=== PATIENT | male | born 1975 | race Caucasian/White ===

== ENCOUNTER 2024-09-30 10:54 | Outpatient (OUT) | payer OTHER, SELFPAY ==
--- NOTE | 2024-09-30 11:10 | XR_ITS ---
[facility] [place] [address] Patient Name: ZEESHAN GIRALDO MRN: [id number] date: 1975 Sex: M Assigned Patient Location: LAB Current Patient Location: LAB Accession/Order Number: [id number] Exam Date: 09/30/2024 12:34 Report Date: 09/30/2024 12:36 At the request of: RHIANNA LECHUGA DO Procedure: XR cervical spine w flex/ext 7 viewscervical spinewith flexion and extension HISTORY: Neck pain and right shoulder pain for 3 weeks. COMPARISON: None POSTOPERATIVE CHANGES: None BONY ALIGNMENT: Straightening of cervical lordosis secondary patient positioning or spasm. HYPERMOBILITY::No hypermobility LISTHESIS:None FRACTURE: None DISC DEGENERATION: C5-6 and C6-7 mild disc space narrowing. Marginal spurring. FACETS: Multilevel facet degeneration FORAMEN: C5-6 and C6-7 bilateral bony neural foraminal narrowing. DENS: Intact CRANIOCERVICAL JUNCTION: Unremarkable SOFT TISSUES: Unremarkable XR/XR cervical spine w flex/ext IMPRESSION: No hypermobility. C5-6 and C6-7 degenerative change. Impression dictated by: Raymond Chamberlain M.D.09/30/2024 12:36 PM Dictation Location: [email or web address] Electronically authenticated by: [id number] Date: 09/30/2024 12:36
[2024-09-30 11:18] LABS: Basophils Absolute Auto 0.1 10^3/uL (0.0-0.1); Basophils Percent Auto 0.9 % (0.2-2.0); Eosinophils Absolute Auto 0.4 10^3/uL (0.0-0.7); Eosinophils Percent Auto 4.3 % (0.9-7.0); Hematocrit 45.4 % (42.0-54.0); Hemoglobin 16.4 g/dL (14.0-18.0); Immature Granulocytes Abs Auto 0.03 10^3/uL (0.00-0.03); Immature Granulocytes Pct Auto 0.3 % (0.0-0.5); Lymphocytes Percent Auto 32.5 % (20.5-60.0); Mean Corpuscular HGB Conc 36.1 g/dL (29.9-35.2); Mean Corpuscular Hemoglobin 32.8 pg (25.9-34.0); Mean Corpuscular Volume 90.8 fL (80.0-94.0); Mean Platelet Volume 10.2 fL (9.5-13.5); Monocytes Absolute Auto 0.7 10^3/uL (0.3-0.8); Monocytes Percent Auto 7.4 % (1.7-12.0); Neutrophils Percent Auto 54.6 % (43.0-75.0); Platelet Count 252 10^3/uL (150-450); Red Cell Distribution Width 12.5 % (11.0-15.0); White Blood Count 9.1 10^3/uL (4.0-11.0)
[2024-09-30 11:50] LABS: Alanine Aminotransferase 29 U/L (16-63); Albumin Globulin Ratio 1.3; Albumin Level 4.4 g/dL (3.4-5.0); Alkaline Phosphatase 81 U/L (46-116); Anion Gap 13.1; Aspartate Amino Transferase 17 U/L (15-37); Bilirubin Total 0.9 mg/dL (0.2-1.0); Calcium 9.3 mg/dL (8.5-10.1); Carbon Dioxide 29.2 mmol/L (21.0-32.0); Chloride 104 mmol/L (98-107); Chol HDL Ratio 2.7; Cholesterol 177 mg/dL (<=200); Estimated GFR (African America >60 (>=60 mL/min/1.73m^2); Estimated GFR (Non-African Ame >60 (>=60 mL/min/1.73m^2); Globulin 3.5 g/dL; Glucose 90 mg/dL (74-106); HDL Cholesterol 65 mg/dL (40-60); Potassium 4.3 mmol/L (3.5-5.1); Sodium 142 mmol/L (136-145); Total Protein 7.9 g/dL (6.4-8.2); Triglycerides 54 mg/dL (<=150); VLDL CHOLESTEROL 10.8 mg/dL
== END 2024-09-30 10:55 | disposition home or self-care (01) ==
LOC: LAB 10:59
PROVIDERS: PCP Internal Medicine; Visit Provider Internal Medicine
DX: Z00.00 Encounter for general adult medical examination without abnormal findings (principal); M54.2 Cervicalgia; M25.511 Pain in right shoulder
CPT/HCPCS: 36415; 72052; 80053; 80061; 85025

== ENCOUNTER 2024-10-09 06:41 | Emergency (ER) | payer OTHER, SELFPAY ==
--- OUTSIDE RECORDS SUMMARY | 2024-10-09 06:46 | XMS_ITS | CCD ---
Author Organization [facility] Care Team Providers Care Carrot Harvester Name Role Phone MIKE, DR MOCTEZUMA Admitting Unavailable BALL, DR MOCTEZUMA Attending Unavailable BALL, DR MOCTEZUMA Primary Care Unavailable BALL, DR MOCTEZUMA Consulting Unavailable WEST, DR JEREMIAS Knight Consulting Unavailable REQUEST, DR MORGAN LISTED Admitting Unavaila ble REQUEST, DR MORGAN LISTED Attending Unavaila ble REQUEST, DR MORGAN LISTED Consulting Unavaila ble BALL, DR MOCTEZUMA Primary Care Unavailable Mike, Henrique Unavailable MIKE, HENRIQUE Primary Care Physician BUTCH, Kory Nixon Attending Unavailable RAE, Kory Nixon Attending Unavailable RAE, Kory Nixon Referring Unavailable RAE, Kory Nixon Admitting Unavailable RAE, Kory Nixon Admitting Unavailable RAE, Kory Nixon Attending Unavailable RAE, Kory Nixon Admitting Unavailable RAE, Kory Nixon Attending Unavailable RAE, Kory Nixon Attending Unavailable RAE, Kory R Attending Unavailable Allergies Allergy Classification Reported Allergen(s) Allergy Type Date of Onset Reaction(s) Facility (1 source) No Known Medication Allergies; Translations: [No Known Medication Allergies] Propensity to adverse reactions (disorder) [facility] Repository Medications Current Medications Medication Drug Class(es) Dates Sig (Normalized) Sig (Original) cephalexin 500 mg oral capsule (1 source) Cephalosporin Antibacterial Start: 03-23-2023 End: 03-28-2023 take 1 capsule by mouth twice daily at mealtime Keflex 500 mg Cap 500 mg = 1 cap(s), Oral, BID, start with first meal after procedure, X 5 day(s), # 10 cap(s), Refills(s) 0, Pharmacy: [facility]/pharmacy #[id number], 190, cm, 03/23/23 12:39:00 EDT, Height/Length Dosing, 88, kg, 03/23/23 12:39:00 EDT, Weight Dosing Start Date: 03/23/23 Stop Date: 03/28/23 Status: Ordered diazePAM 10 mg oral tablet (2 sources) Benzodiazepine Start: 03-23-2023 Valium 10 mg Tab 10 mg = 1 tab(s), Oral, Once, take one hour prior to procedure, # 1 tab(s), Refills(s) 0, Pharmacy: [facility]/pharmacy #[id number], 190, cm, 03/23/23 12:39:00 EDT, Height/Length Dosing, 88, kg, 03/23/23 12:39:00 EDT, Weight Dosing Start Date: 03/23/23 Status: Ordered LORazepam 0.5 mg oral tablet (8 sources) Benzodiazepine Start: 07-15-2023 take 1 tablet by mouth once daily as needed LORazepam 0.5 MG 1 tablet Orally Once a day as needed for 7 days Jul, Active Start: 05-20-2023 take 1 tablet by guillermo th once daily as needed LORazepam 0.5 MG 1 tablet Orally Once a day as needed for 7 days May, Active Start: 07-25-2022 take 1 tablet by guillermo th once daily as needed LORazepam 0.5 MG 1 tablet Orally Once a day as needed for 7 days Jul, Active predniSONE 20 mg oral tablet (1 source) Start: 09-30-2024 Prednisone 20 mg tablet Active 20 MG PO As Directed September 30, 2024 12:00am 1 tab tid w/ food x 3 days, then bid w/ food x 3 days, then qd w/ food x 3 days tiZANidine 4 mg oral tablet (1 source) Central alpha-2 Adrenergic Agonist Start: 09-30-2024 take 1 tablet by mouth once daily at bedtime as needed Tizanidine 4 mg tablet Active 4 MG PO Daily at bedtime as needed for muscle spasticity 14 September 30, 2024 12:00am valACYclovir (14 sources) Herpesvirus Nucleoside Analog DNA Polymerase Inhibitor, Herpes Simplex Virus Nucleoside Analog DNA Polymerase Inhibitor, Herpes Zoster Virus Nucleoside Analog DNA Polymerase Inhibitor Start: 11-16-2023 Valacyclovir 1 gram tablet Active 0 .ROUTE .COMPLEX 180 November 16, 2023 1:21pm TAKE 1 TABLET TWICE A DAY Start: 11-16-2023 Valacyclovir A ctive 0 .ROUTE .COMPLEX 180 November 16, 2023 1:21pm TAKE 1 TABLET TWICE A DAY Start: 11-16-2023 End: 11-16-2023 Valacyclovir 1 gram tablet Discontinued 1000 MG PO Twice daily November 16, 2023 12:00am November 16, 2023 1:21pm Start: 11-16-2023 End: 11-16-2023 take 1000 mg by mouth twice daily Valacyclovir Discontinued 1000 MG PO Twice daily November 16, 2023 12:00am November 16, 2023 1:21pm take 1 tablet by guillermo th twice daily valACYclovir HCl 1 GM 1 tablet Orally twice daily for 90 days Active take 1 tablet by guillermo th twice daily valACYclovir HCl 1 GM 1 tablet Orally twice daily for 90 days Active take 1 tablet by guillermo th every twenty-four hours valACYclovir HCl 1 GM 1 tablet Orally Once a day Active Completed/Discontinued Medications Medication Drug Class(es) Dates Sig (Normalized) Sig (Original) amoxicillin 875 mg oral tablet (8 sources) Penicillin-class Antibacterial Start: 03-29-2018 take 1 tablet by mouth every twelve hours Amoxicillin 875 MG 1 tablet Orally every 12 hrs for 7 days Mar, Not-Taking/PRN amoxicillin 875 mg / clavulanate 125 mg oral tablet (2 sources) Penicillin-class Antibacterial Start: 03-04-2024 End: 09-30-2024 take 1 tablet by mouth every twelve hours Amoxicillin-Pot Clavulanate 875-125 mg tablet Discontinued 1 TAB PO Every 12 hours 14 March 04, 2024 12:00am September 30, 2024 10:10am benzonatate 200 mg oral capsule (2 sources) Non-narcotic Antitussive Start: 03-04-2024 End: 09-30-2024 take 1 capsule by mouth three times daily Benzonatate 200 mg capsule Discontinued 200 MG PO Three times daily 30 March 04, 2024 12:00am September 30, 2024 10:15am doxycycline hyclate 100 mg oral capsule (3 sources) Tetracycline-class Drug Start: 02-01-2024 End: 03-04-2024 take 1 capsule by mouth twice daily Doxycycline Hyclate 100 mg capsule Discontinued 100 MG PO Twice daily February 01, 2024 12:00am March 04, 2024 4:08pm fluticasone propionate 0.05 mg/actuat metered dose nasal spray (8 sources) Corticosteroid Start: 03-29-2018 take 1 spray(s) nasal route once daily as needed Fluticasone Propionate 50 MCG/ACT 1 spray in each nostril Nasally Once a day for 21 days Mar, Not-Taking/PRN Start: 03-29-2018 take 1 spray(s) nasa l route once daily Fluticasone Propionate 50 MCG/ACT 1 spray in each nostril Nasally Once a day for 21 days Mar, Not-Taking methylPREDNISolone 4 mg oral tablet (8 sources) Corticosteroid Start: 03-29-2018 Medrol (Killian) 4 MG half of daily dose in the morning with food and the rest at night with food Orally Mar, Not-Taking/PRN ProAir HFA 108 (90 Base) MCG/ACT (8 sources) Start: 03-29-2018 take 2 puff(s) by inhalation every four to six hours as needed ProAir HFA 108 (90 Base) MCG/ACT 2 puffs as needed Inhalation every 4-6 hrs Mar, Not-Taking/PRN Start: 03-29-2018 take 2 puff(s) by in halation every four to six hours as needed ProAir HFA 108 (90 Base) MCG/ACT 2 puffs as needed Inhalation every 4-6 hrs Mar, Not-Taking Problems Problem Classification Problem Date Documented Date Episodic/Chronic Acute bronchitis (3 sources) Acute infective bronchitis; Translations: [Acute bronchitis due to other specified organisms] 03-04-2024 Episodic Anxiety disorders (19 sources) Generalized anxiety disorder; Translations: [Generalized anxiety disorder] Onset: 06-09-2017 Chronic Contraceptive and procreative management (1 source) Contraception status; Translations: [Encounter for other general counseling and advice on contraception] Onset: 03-19-2023 Episodic Nonspecific chest pain (4 sources) Other chest pain; Translations: [OTHER CHEST PAIN] Onset: 12-06-2020 Episodic Other circulatory disease (3 sources) Elevated blood-pressure reading, without diagnosis of hypertension Episodic Other lower respiratory disease (3 sources) Productive cough ; Translations: [Productive cough] 03-04-2024 Episodic Other non-traumatic joint disorders (2 sources) Pain in right shoulder; Translations: [Right shoulder pain] 09-30-2024 Episodic Other screening for suspected conditions (not mental disorders or infectious disease) (2 sources) Encounter for screening for malignant neoplasm of colon; Translations: [Special screening for malignant neoplasms of colon] Episodic Spondylosis; intervertebral disc disorders; other back problems (9 sources) Lumbar spondylosis; Translations: [Spondylosis without myelopathy or radiculopathy, lumbar region] Chronic Spondylosis; intervertebral disc disorders; other back problems (2 sources) Neck pain; Translations: [Cervicalgia] 09-30-2024 Episodic Unclassified (2 sources) Patient encounter status 03-19-2023 Viral infection (11 sources) Herpes simplex type 1 infection; Translations: [Herpesviral infection, unspecified] Episodic Results Test Name Value Interpretation Reference Range Facility Semen Analysis PostVason Deana/Transport Prob No Problems Normal [facility] Comment on above: Performed By: #### 2 [id number], [id number] ####[place] [address] Collect. Meth Masturbation Normal [facility] Comment on above: Performed By: #### 2 [id number], [id number] ####[place] [address] Days Abstained Invalid Interpretation Code 2-5 [facility] Comment on above: Performed By: #### 2 [id number], [id number] ####[place] [id number] Post Vas Screen No Sperm Seen Normal <=0 [facility] Comment on above: Result Comment: A Co ncentration Technique is used to confirm any semen which is azospermic (no sperm seen). Performed By: #### 2 [id number], [id number] ####[address] [address] Spec. Container Steril Container Normal [facility] Comment on above: Performed By: #### 2 [id number], [id number] ####[address] [address] Spec. Temp 22 DegC Normal 20-37 [facility] Comment on above: Performed By: #### 2 [id number], [id number] ####[place] [id number] Sperm Morphon 02-27-2024 Sperm Morph No sperm identified (A concentration technique is used to evaluate this specimen). ICD10 Z30.9 Invalid Interpretation Code [facility] Comment on above: Other Comment: Order Added by Discern Expert. Sperm Morph No sperm identified (A concentration technique is used to evaluate this specimen). Invalid Interpretation Code [facility] Comment on above: Order Comment: Order Added by Discern Expert. Performed By: #### 2 [id number], [id number] ####[place] [id number] Semen Analysis PostVason Deana/Transport Prob No Problems Normal [facility] Comment on above: Performed By: #### 2 [id number], [id number] ####[place] [id number] Collect. Meth Masturbation Normal [facility] Comment on above: Performed By: #### 2 [id number], [id number] ####[place] [id number] Days Abstained 1 day(s) Low 2-5 [facility] Comment on above: Performed By: #### 2 [id number], [id number] ####[place] [id number] Post Vas Screen Present Normal <=0 [facility] Comment on above: Result Comment: Rare Non-Motile Sperm Seen A Concentration Technique is used to confirm any semen which is azospermic (no sperm seen). Performed By: #### 2 [id number], [id number] ####[address] [address] Spec. Container Steril Container Normal [facility] Comment on above: Performed By: #### 2 [id number], [id number] ####[address] [address] Spec. Temp 23 DegC Normal 20-37 [facility] Comment on above: Performed By: #### 2 [id number], [id number] ####[address] [place] [address] Sperm Morphon 06-03-2023 Sperm Morph Rare unremarkable sperms present (concentration technique performed). Invalid Interpretation Code [facility] Comment on above: Other Comment: Order Added by Discern Expert. Order Comment: Order Added by Discern Expert. Performed By: #### 2 [id number], [id number] ####[facility] [id number] [place] [address] Ambulatory Visit Summaryon 1 07-20-2022 Ambulatory Visit Summary LAMONTE MOORE :1975 Visit Date:05/20/2023 Ambulatory Visit Instructions Your Diagnosis Status post vasectomy Your Care Team Attending Physician - Kory RAE MD Primary Care Physician - HENRIQUE MCKEON DO Procedures Performed Vasectomy (04/28/2023), Procedure on back, Procedure on femur. Discharge Vitals Heart Rate (Peripheral) 64 Blood Pressure 123/90 Height 190 cm Height 75 in Weight 88 kg Weight 193.6 lb BMI 24.38 What to do next You Need to Schedule the Following Appointments Follow Up with BUTCH OROZCO, Kory Nixon, URL When: Where: [facility] [address] [place] [address]- You Need to Complete the Following Semen Analysis Post Vasectomy, Semen, Routine collect, 05/20/23, Order for future visit, Nurse collect, Vasectomy evaluation, Print Label By Order Location Semen Analysis Post Vasectomy, Semen, Routine collect, 05/20/23, Order for future visit, Nurse collect, Vasectomy evaluation, Print Label By Order Location Allergies No Known Medication Allergies Problems Ongoing - Any problem that you are currently receiving treatment for. Status post vasectomy Patient Survey You may receive a survey via text or e-mail asking about your office visit. Please share your experience with us by completing your survey. We appreciate your feedback and thank you for choosing us for your care. Education Materials Contraception Choices Contraception, also called control, refers to methods or devices that prevent . Hormonal methods Contraceptive implant A contraceptive implant is a thin, plastic tube that contains a hormone that prevents . It is different from an intrauterine device (IUD). It is inserted into the upper part of the arm by a health care provider. Implants can be effective for up to 3 years. Progestin-only injections Progestin-only injections are injections of progestin, a synthetic form of the hormone progesterone. They are given every 3 months by a health care provider. control pills control pills are pills that contain hormones that prevent . They must be taken once a day, preferably at the same time each day. A prescription is needed to use this method of contraception. control patch The control patch contains hormones that prevent . It is placed on the skin and must be changed once a week for three weeks and removed on the fourth week. A prescription is needed to use this method of contraception. Vaginal ring A vaginal ring contains hormones that prevent . It is placed in the vagina for three weeks and removed on the fourth week. After that, the process is repeated with a new ring. A prescription is needed to use this method of contraception. Emergency contraceptive Emergency contraceptives prevent after unprotected sex. They come in pill form and can be taken up to 5 days after sex. They work best the sooner they are taken after having sex. Most emergency contraceptives are available without a prescription. This method should not be used as your only form of control. Barrier methods Male condom A male condom is a thin sheath that is worn over the penis during sex. Condoms keep sperm from going inside a woman's body. They can be used with a sperm-killing substance (spermicide) to increase their effectiveness. They should be thrown away after one use. Female condom A female condom is a soft, loose-fitting sheath that is put into the vagina before sex. The condom keeps sperm from going inside a woman's body. They should be thrown away after one use. Diaphragm A diaphragm is a soft, dome-shaped barrier. It is inserted into the vagina before sex, along with a spermicide. The diaphragm blocks sperm from entering the uterus, and the spermicide kills sperm. A diaphragm should be left in the vagina for 6?8 hours after sex and removed within 24 hours. A diaphragm is prescribed and fitted by a health care provider. A diaphragm should be replaced every 1?2 years, after giving , after gaining more than 15 lb (6.8 kg), and after pelvic surgery. Cervical cap A cervical cap is a round, soft latex or plastic cup that fits over the cervix. It is inserted into the vagina before sex, along with spermicide. It blocks sperm from entering the uterus. The cap should be left in place for 6?8 hours after sex and removed within 48 hours. A cervical cap must be prescribed and fitted by a health care provider. It should be replaced every 2 years. Sponge A sponge is a soft, circular piece of polyurethane foam with spermicide in it. The sponge helps block sperm from entering the uterus, and the spermicide kills sperm. To use it, you make it wet and then insert it into the vagina. It should be inserted before sex, left in for at least 6 hours after sex, and removed and thrown away within 30 hours. Spermi (more content not included)... Normal [facility] Patient Educationon 05-20-20 Patient Education Obstetrics and Gynecology Contraception Choices Contraception, also called control, refers to methods or devices that prevent . Hormonal methods Contraceptive implant A contraceptive implant is a thin, plastic tube that contains a hormone that prevents . It is different from an intrauterine device (IUD). It is inserted into the upper part of the arm by a health care provider. Implants can be effective for up to 3 years. Progestin-only injections Progestin-only injections are injections of progestin, a synthetic form of the hormone progesterone. They are given every 3 months by a health care provider. control pills control pills are pills that contain hormones that prevent . They must be taken once a day, preferably at the same time each day. A prescription is needed to use this method of contraception. control patch The control patch contains hormones that prevent . It is placed on the skin and must be changed once a week for three weeks and removed on the fourth week. A prescription is needed to use this method of contraception. Vaginal ring A vaginal ring contains hormones that prevent . It is placed in the vagina for three weeks and removed on the fourth week. After that, the process is repeated with a new ring. A prescription is needed to use this method of contraception. Emergency contraceptive Emergency contraceptives prevent after unprotected sex. They come in pill form and can be taken up to 5 days after sex. They work best the sooner they are taken after having sex. Most emergency contraceptives are available without a prescription. This method should not be used as your only form of control. Barrier methods Male condom A male condom is a thin sheath that is worn over the penis during sex. Condoms keep sperm from going inside a woman's body. They can be used with a sperm-killing substance (spermicide) to increase their effectiveness. They should be thrown away after one use. Female condom A female condom is a soft, loose-fitting sheath that is put into the vagina before sex. The condom keeps sperm from going inside a woman's body. They should be thrown away after one use. Diaphragm A diaphragm is a soft, dome-shaped barrier. It is inserted into the vagina before sex, along with a spermicide. The diaphragm blocks sperm from entering the uterus, and the spermicide kills sperm. A diaphragm should be left in the vagina for 6?8 hours after sex and removed within 24 hours. A diaphragm is prescribed and fitted by a health care provider. A diaphragm should be replaced every 1?2 years, after giving , after gaining more than 15 lb (6.8 kg), and after pelvic surgery. Cervical cap A cervical cap is a round, soft latex or plastic cup that fits over the cervix. It is inserted into the vagina before sex, along with spermicide. It blocks sperm from entering the uterus. The cap should be left in place for 6?8 hours after sex and removed within 48 hours. A cervical cap must be prescribed and fitted by a health care provider. It should be replaced every 2 years. Sponge A sponge is a soft, circular piece of polyurethane foam with spermicide in it. The sponge helps block sperm from entering the uterus, and the spermicide kills sperm. To use it, you make it wet and then insert it into the vagina. It should be inserted before sex, left in for at least 6 hours after sex, and removed and thrown away within 30 hours. Spermicides Spermicides are chemicals that kill or block sperm from entering the cervix and uterus. They can come as a cream, jelly, suppository, foam, or tablet. A spermicide should be inserted into the vagina with an applicator at least 10?15 minutes before sex to allow time for it to work. The process must be repeated every time you have sex. Spermicides do not require a prescription. Intrauterine contraception Intrauterine device (IUD) An IUD is a T-shaped device that is put in a woman's uterus. There are two types: ? Hormone IUD.This type contains progestin, a synthetic form of the hormone progesterone. This type can stay in place for 3?5 years. ? Copper IUD.This type is wrapped in copper wire. It can stay in place for 10 years. Permanent methods of contraception Female tubal ligation In this method, a woman's fallopian tubes are sealed, tied, or blocked during surgery to prevent eggs from traveling to the uterus. Hysteroscopic sterilization In this method, a small, flexible insert is placed into each fallopian tube. The inserts cause scar tissue to form in the fallopian tubes and block them, so sperm cannot reach an egg. The procedure takes about 3 months to be effective. Another form of control must be used during those 3 months. Male sterilization This is a procedure to tie off the tubes that carry sperm (vasectomy). After the procedure, the man ca (more content not included)... Normal [facility] Urology Office/Clinic Noteon 05-20-2023 Urology Office/Clinic Note Chief Complaint PO Vasectomy HPI Staff 48 yo male here for PO vasectomy. Previous Dx: vasectomy evaluation. S/p vasectomy 04/28/23. Dysuria: denies pain and burning Incomplete bladder emptying: denies Hematuria: denies Frequency: denies Urgency: denies Nocturia: denies Stream: denies hesitancy, good stream Leaking: denies Post void dripping: denies Wearing pads/ Depends: denies Urge incontinence: denies Stress incontinence: denies Incontinence without Sensory Awareness: denies Abdominal pain: denies Flank pain: denies Sexual complaints: denies History of Present Illness Tests reviewed: reviewed op note, path I have reviewed the previous health record information and history for this patient from Dr. Rae. I have reviewed and verified the staff HPI to be accurate for this encounter. There have been no associated fever, chills, flank pain, or blood in the urine. Denies any urinary infections since last encounter. Review of Systems PHQ Score Initial Depression Screen Score: 0 SCORE ROS - Provider Constitutional: denies weight loss, denies hot flashes. Eyes: denies eye problems. Gastrointestinal: denies nausea, denies vomiting. Cardiovascular: denies chest pain or angina. Integumentary: no dryness Musculoskeletal: denies musculoskeletal symptoms. ENMT: denies otolaryngeal symptoms. Respiratory: no shortness of breath. Heme/Lymph: denies easy bleeding tendency, denies easy bruising tendency. Psychiatric: no confusion, no anxiety. Genitourinary: See HPI. Physical Exam Vitals & Measurements HR: 64(Peripheral) BP: 123/90 HT: 75 in HT: 190 cm WT: 88 kg WT: 193.6 lb BMI: 24.38 General Appearance: alert, no distress, well nourished, well developed male. Genitourinary: normal scrotum, normal testes, normal urethra, normal epididymis, normal vas deferens/spermatic cord. Flank Pain: none. Bladder: nonpalpable. Assessment/Plan 1. Status post vasectomy (Z98.52: Vasectomy status) S/p vasectomy 04/28/23 - Path benign. No sample provided for UA today. He is aware that he is not sterile until he has a negative semen analysis which will be checked after about two months and after 20-30 ejaculations. He should deliver the semen specimen to the lab within 30 min. of ejaculation and he will call one week later to get the results. PE: wnl, healing well. Follow up PRN. Pt understands and agrees with plan. Two sterile cups and instructions given to pt. [place] [facility] [place] Follow-up With When Contact Information BUTCH OROZCO, Kory Nixon, URL [facility] [address], [place] [address]- Additional Instructions: PRN Patient Education Contraception Choices Dain, Nery Huerta, personally scribed for Dr. Rae on 05/20/2023 10:26:59. . Documentation recorded by the scribe, Nery Huerta, accurately reflects the services(s) I performed and decisions made by me. Authenticated by Dr. Rae on 05/20/2023 10:28:52. Problem List/Past Medical History Ongoing Status post vasectomy Historical No qualifying data Procedure/Surgical History Vasectomy (04/28/2023), Procedure on back, Procedure on femur. Medications No active medications Allergies No Known Medication Allergies Social History Alcohol - Denies Alcohol Use, 03/23/2023 Substance Abuse - Denies Substance Abuse, 03/23/2023 Tobacco - Denies Tobacco Use, 03/23/2023 Never (less than 100 in lifetime) Tobacco Use:. Never Smokeless Tobacco Use:., 05/20/2023 [facility] Comment on above: Result Comment: Elec tronically Signed By: Kory RAE MD\.br\Date and Time Signed: 05/20/23 10:28 EST\.br\Electronically Co-Signed By: Nery Huerta\.br\Date and Time Co-Signed: 05/20/23 10:27 EST Consent for Procedure/Surger yon 04-28-2023 Consent for Procedure/Surgery [id number] 0#1.00TIFF [facility] Consent for Treatmenton 10-2 Consent for Treatment [id number] #1.00TIFF [facility] IntraOperative Documentson 1 IntraOperative Documents [id number] 2#1.00TIFF [facility] Main OR Intraoperative Recor don 04-28-2023 Main OR Intraoperative Record IntraOp Document Type FTURO Summary Primary Physician: Kory RAE MD Finalized Date/Time: 04/28/23 09:52:52 Pt. Name: LAMONTE MOORE Jackie/Sex: 1975 Male Med Rec #: [id number] Physician: Kory RAE MD Financial #: [id number] Pt. Type: O Room/Bed: / Admit/Disch: 04/28/23 08:13:18 - Institution: Case Times FTURO Entry 1 Patient Times In Room 04/28/23 09:07:00 Out Room 04/28/23 09:51:00 Procedure Times Start 04/28/23 09:10:00 Stop 04/28/23 09:45:00 Anesthesia Times Last Modified By: Jenny LEIJA, Kandi PURI 04/28/23 09:46:48 Case Attendance FTURO Entry 1 Entry 2 Entry 3 Case Attendee Kory RAE MD RNJAXSON Votino, Adam A Ruthann Role Performed Surgeon - Primary Medical Health Researcher - Primary Scrub - Primary Time In 04/28/23 09:07:00 04/28/23 09:07:00 04/28/23 09:07:00 Time Out 04/28/23 09:51:00 04/28/23 09:51:00 04/28/23 09:51:00 Procedure VASECTOMY LOCAL(.) VASECTOMY LOCAL(.) VASECTOMY LOCAL(.) Comments Last Modified By: Jenny LEIJA, JORDIOR, Jenny LEIJA, JORDIOR, Jenny ELIJA, JORDIOR, Kandi 04/28/23 Kandi 04/28/23 Kandi 04/28/23 09:46:56 09:46:56 09:46:56 Surgical Procedures FTURO Entry 1 Procedure Description Procedure VASECTOMY LOCAL Modifiers . Surgeon Description VASECTOMY Primary Procedure Yes Primary Surgeon Kory RAE MD Start 04/28/23 09:10:00 Stop 04/28/23 09:45:00 Anesthesia Type Local Surgical Service Urology Wound Class 2 - Clean-Contaminated Last Modified By: Jenny LEIJA, JORDIOR, Kandi 04/28/23 09:47:08 General Case Data FTURO Pre-Care Text: Classifies surgical wound, implements aseptic technique, initiates traffic control Entry 1 Case Information OR URO 1 FT Case Level None Wound Class 2 - Clean-Contaminated Specialty Urology Preop Diagnosis STERILIZATION Postop Same As Preop Yes Postop Diagnosis STERILIZATION Outcomes Met? Yes Last Modified By: JAXSON Alvarado RN, Kandi 04/28/23 09:17:21 Post-Care Text: The patient is free from signs and symptoms of infection EU IntraOp - FTURO Pre-Care Text: Implements protective measures prior to operative or invasive procedure, confirms identity before the operative or invasive procedure, verifies operative procedure, surgical site, and laterality Entry 1 EU Perioperative Protocols Procedure(s) VASECTOMY LOCAL(.) Patient Identity Birthday, ID Band Verified (select at Check, Patient least 2): Participation Consents / H and P HandP, Surgery/Procedure Operative Site N/A Verified Consent Marking Verified Surgical Site Yes Laterality Verified n/a Verified Procedure Verified Yes Correct Patient Yes Position Verified Availability Equipment, Medication Time Out Kory RAE MD, Verified (If Participants Jenny LEIJA, JORDIOR, Applicable) Valeria Chau Adam A Time Out Complete 04/28/23 09:08:00 Allergies Reviewed? Yes Allergies Reviewed Self/Patient With Body Position Supine Prep Area scrotum Prep Agents Betadine Solution Skin. Condition Unable to Visualize Additional Tissue Specimens Collected Vitals - EU Blood Pressure 143/88 Pulse 62 bpm Respirations 14 br/min SPO2 99 % EBL 0 IandO - EU Total Intake 0 mL Total Output 0 mL Outcomes Met? Yes Last Modified By: JAXSON Alvarado RN, Ruthann 04/28/23 09:27:51 Post-Care Text: The patient is free from signs and symptoms of injury caused by extraneous objects Sign Out FTURO Entry 1 Before Patient Leaves OR Nurse verbally Yes Nurse verbally n/a confirms with the confirms with the team the name of team that the procedure(s) instrument, sponge, recorded and needle counts are correct (or N/A) Nurse verbally Yes Nurse verbally Yes confirms with the confirms with the team how the team whether there specimen is labeled are any equipment (including patient problems to be name), if applicable addressed Sign Out Complete 04/28/23 09:48:00 Last Modified By: JAXSON Alvarado RN, Ruthann 04/28/23 09:48:34 Case Comments Finalized By: JAXSON Alvarado RN, Ruthann Document Signatures Signed By: JAXSON Alvarado RN, Ruthann 04/28/23 09:48 JAXSON Alvarado RN, Ruthann 04/28/23 09:52 Normal [facility] Main OR Preoperative Recordo n 04-28-2023 Main OR Preoperative Record Holding Area Document Type FTURO Summary Primary Physician: Kory RAE MD Finalized Date/Time: 04/28/23 09:16:17 Pt. Name: LAMONTE MOORE/Sex: 1975 Male Med Rec #: [id number] Physician: Kory RAE MD Financial #: [id number] Pt. Type: O Room/Bed: / Admit/Disch: 04/28/23 08:13:18 - Institution: Case Times Holding FTURO Pre-Care Text: Verifies consent for planned procedure, identifies individual values and wishes concerning care, includes family members in perioperative teaching Secures patient's records' belongings, and valuables, maintains patient's dignity and privacy, and maintains patient confidentiality Entry 1 In Holding 04/28/23 08:26:00 Outcomes Met? Yes Last Modified By: Lea Menezes RN 04/28/23 08:26:45 Post-Care Text: The patient participates in decisions affecting his or her perioperative plan of care The patient's right to privacy is maintained Surgery Checklist FTURO Entry 1 Patient Birthday, ID Band Procedure History and Physical, Identification: Check, Patient Verification: Surgical Consent, With Participation Patient NPO after Midnight: n/a Personal Items: Contact Lenses Complaints of Pain: No Skin Integrity Dry, [place], Warm Vitals - EU Blood Pressure 143/88 Pulse 62 bpm Respirations 14 br/min SPO2 99 % Additional None RN Reviewed Yes Specimens Collected Last Modified By: JAXSON Alvarado RN, Ruthann 04/28/23 09:16:15 General Comments: 97.9 Finalized By: JAXSON Alvarado RN, Ruthann Document Signatures Signed By: Lea Menezes RN 04/28/23 08:36 JAXSON Alvarado RN, Ruthann 04/28/23 09:16 Normal [facility] Operative Reporton Operative Report Patient: LAMONTE MOORE Age: 48 years Sex: Male : 1975 Associated Diagnoses: None Author: Kory RAE MD Procedure Operative Information Details: Date/ Time: 04/28/2023 09:50:00. Pre-Op Dx: Sterilization - Z30.2. Post-Op Dx: Same. Anesthesia Type: Local. Procedure: Bilateral Segmental Vasectomy. Complications: None. Risks/Benefits/Infor med Consent: Surgical risks, benefits, details of the procedure have been explained to the patient, Full informed consent has been obtained. Intraoperative Information Butch: Prepped (The patient was placed on the procedure room table in the supine position, His genitals were prepped and draped in the usual fashion), Procedure (The left vas was palpated and brought anteriorly to the scrotal surface, 2% Xylocaine was then infiltrated locally subcutaneously, A small skin incision was made with a scalpel directly over the vas deferens, The vas itself was grasped and brought out through the incision, The adventitial layers and the blood supply were bluntly and sharply dissected off of the vas as to create a free vassal loop, 2% Xylocaine was infiltrated in the vas, I then placed hemostats on the vas loop ends, I then transected the vas loop on each end so as to amputate a 1.5 to 2 cm segment of the vas, Each vasal end was coagulated with the Bovie cautery, I also tied each end with 1, 2-0 Vicryl suture, 4-0 Vicryl suture was then used to separate 1 vas from the other, Perfect hemostasis was verified and both vasal ends were allowed to drop back within the scrotal contents, 4-0 Vicryl was then used to close the scrotal incision in an interrupted fashion, The exact same maneuver was done on the patient's contra-lateral side, Bacitracin Oint was applied over each incision, 4x4 fluffs were applied and a scrotal support was then placed), Devices Implanted None. Postoperative Information Discharge - Butch: The patient tolerated the procedure well and no complications were noted. Normal [facility] Comment on above: Result Comment: Elec tronically Signed By: BUTCH OROZCO, Kory Nixon\.br\Date and Time Signed: 04/28/23 09:50 EDT Patient Educationon 04-28-20 Patient Education Custom Vasectomy ? The following instructions must be followed closely: -If you need pain pills, start before pain becomes intense. Antibiotics and pain pills are frequently less upsetting to your stomach if you take them with food such as crackers or bread. -If you have excessive or persistent pain, swelling, bleeding, nausea, vomiting, or any problems, you should first call your surgeon for advice. If you are unable to contact your surgeon, seek help from a hospital emergency room. ? If you were given drugs to make you drowsy or pain medication follow these instructions: -You should spend the remainder of the day and evening resting. -You should not attempt to walk, including going to the bathroom without assistance. You may be lightheaded from the medication you received. -Eat light today to avoid nausea. You should be able to return to your normal diet 24 to 36 hours after your procedure. -For the next 24 hours, do not consume alcohol, attempt to drive, use power tools, sign important documents or make important decisions. After that only do so if you feel perfectly normal and alert. -Follow carefully any verbal or written instructions your surgeon may give you. ? Surgeons written instructions with a copy given to patient: -No sex for 1 to 2 weeks. - No unprotected sex, until results of your sperm count have been verified as negative by your doctor, and these results given to you. -You may shower in 2 days. -Take the pain medication and antibiotics as directed. -Apply frozen peas or corn to your scrotum, 15 minutes on and 15 minutes off. -Call the office to schedule follow up appointment 1 to 2 weeks after your procedure. Normal [facility] Insurance Correspondenceon 1 Insurance Correspondence [id number] #1.00TIFF Normal [facility] Provider Letteron 03-23-2023 Provider Letter March 23, [address] [address] : 1975 To Whom It May Concern, Please excuse above patient from work. Date of Illness: From: 04/28/2023 To: 04/29/2023 May Return to Work On:05/02/2023 Restrictions: No work 04/28/2023- 05/01/2023 Comments: Patient is having surgical procedure on 04/28/2023. Sincerely, [facility], , option #3 Normal [facility] Urology Office/Clinic Noteon 03-23-2023 Urology Office/Clinic Note Chief Complaint vasectomy consult HPI Staff New pt here today for a vasectomy consult. Pt has 2 children and desires sterilization. Dysuria: no Incomplete bladder emptying: no Hematuria: no Frequency: no Urgency: no Nocturia: 0-1x Stream: good steady no straining Leaking: no Post void dripping: no Wearing pads/ Depends: no Urge incontinence: no Stress incontinence: no Incontinence without Sensory Awareness: Abdominal pain: no Flank pain: no Sexual complaints: no History of Present Illness Tests reviewed: reviewed UA and External Records. I have reviewed the previous health record information and history for this patient from External Provider. I have reviewed and verified the staff HPI to be accurate for this encounter. There have been no associated fever, chills, flank pain, or blood in the urine. Denies any urinary infections since last encounter. Review of Systems PHQ Score Initial Depression Screen Score: 0 ROS - Provider Constitutional: denies weight loss, denies hot flashes. Eyes: denies eye problems. Gastrointestinal: denies nausea, denies vomiting. Cardiovascular: denies chest pain or angina. Integumentary: no dryness Musculoskeletal: denies musculoskeletal symptoms. ENMT: denies otolaryngeal symptoms. Respiratory: no shortness of breath. Heme/Lymph: denies easy bleeding tendency, denies easy bruising tendency. Psychiatric: no confusion, no anxiety. Genitourinary: See HPI. Physical Exam Vitals & Measurements HR: 72(Peripheral) RR: 16 BP: 135/86 HT: 75 in HT: 190 cm WT: 88 kg WT: 193.6 lb BMI: 24.38 General Appearance: alert, no distress, well nourished, well developed male. Head: normocephalic . Eyes: normal orbit and globe. ENMT: normal examination of external ears. Chest: Lungs CTA, respirations non labored. Cardiovascular: regular rate and rhythm. Abdomen: soft, non distended, no tenderness, no mass or organomegaly, no hernia. Genitourinary: normal scrotum, normal testes, normal urethra, normal epididymis, normal vas deferens/spermatic cord. Flank Pain: none. Bladder: nonpalpable. Penis: normal shaft, normal glans. Lymph Nodes: unremarkable palpation of the cervical area. Skin: warm, dry, no bruising. Psychiatric: cooperative, affect appropriate for age, normal judgement, euthymic mood. Assessment/Plan 1. Vasectomy evaluation (Z30.09: Encounter for other general counseling and advice on contraception) Pt has 2 children and desires sterilization. UA today is negative for blood and infection. -Will schedule Vasectomy. The procedural risks, benefits, details, and treatment alternatives of sterilization have been discussed with the patient today. He understands this procedure is considered permanent, even though vasectomy reversals can be performed. There is no guarantee of successful reversal resulting in , however. Risks discussed include bleeding, infection, failure with in about 1:2500, post-vasectomy syndrome (chronic pain in the testicle or scrotum), and erection problems, among others. Despite these risks, he wishes to proceed. Full informed consent has been obtained. Will order Local anesthesia. -He is aware that he is not sterile until he has a negative semen analysis which will be checked after about 2 months and after 20-30 ejaculations. He should deliver the semen specimen to the lab within 30 minutes of ejaculation. -Alternate Tylenol and Ibuprofen for pain, Tramadol for severe pain, ice 20 min for swelling -Scrotal support immediately after procedure and for 1 week after -Abstinence and no masturbation for 1 week after procedure -Will need local truck driver for Valium -Shave site the night prior -50% of usual activity the day after -Will send script for Keflex 500mg BID x10 days, [place] 325mg-5mg, and Valium 10mg to pharm on file. Discussed the medication side effects, and the patient will monitor closely for these, as well as for symptom improvement. If severe side effects occur, the medication should be stopped and the office notified. Follow-up With When Contact Information BUTCH OROZCO, Kory Nixon, URL [facility] [address], [place] [address] [phone] Additional Instructions: Sched Vasectomy Patient Education Vasectomy I, Tesha Manzo , personally scribed for Dr. Rae on 03/23/2023 13:45:50. . Documentation recorded by the scribe, Tesha Manzo, accurately reflects the services(s) I performed and decisions made by me. Problem List/Past Medical History Ongoing Vasectomy evaluation Historical No qualifying data Procedure/Surgical History Procedure on back, Procedure on femur. Medications No active medications Allergies No Known Medication Allergies Social History Alcohol - Denies Alcohol Use, 03/23/2023 Substance Abuse - Denies Substance Abuse, 03/23/2023 Tobacco - Denies Tobacco Use, 03/23/2023 Lab (more content not included)... Normal [facility] Comment on above: Result Comment: Elec tronically Signed By: Kory RAE MD\.br\Date and Time Signed: 03/23/23 13:52 EDT\.br\Electronically Co-Signed By: Tesha Manzo\.br\Date and Time Co-Signed: 03/23/23 13:46 EDT XR RIBS RT PA Ciarra XR RIBS RT PA CH EXAMINATION: XR RIBS RT PA CH HISTORY: Chest pain COMPARISON: No relevant comparison available. FINDINGS: LUNGS: No significant pulmonary parenchymal abnormalities. PLEURA: No pneumothorax, effusion, or pleural thickening. MEDIASTINUM: No visible mass or adenopathy. CARDIAC: No cardiomegaly or cardiac silhouette abnormality. RIBS: No acute rib fracture OTHER: Negative. IMPRESSION: Clear lungs No acute rib fracture Electronically authenticated by: JEREMIAS TAY Date: 2020-12-06 13:24 Normal [facility] Vital Signs Date Time Vital Sign Value Performing Clinician Facility 09-30-2024 10:15-0400 Body height 190.5 cm [facility] 09-30-2024 10:15-0400 Body mass index (BMI) [Ratio] 26.9 kg/m2 [facility] 09-30-2024 10:15-0400 Body weight 97.74 kg [facility] 09-30-2024 10:15-0400 Diastolic blood pressure 86 mm[Hg] [facility] 09-30-2024 10:15-0400 Heart rate 66 /min [facility] 09-30-2024 10:15-0400 Respiratory rate 12 /min [facility] 09-30-2024 10:15-0400 Systolic blood pressure 130 mm[Hg] [facility] 05-20-2023 14:00-0500 Body height 190.5 cm [employer] Other [facility] [employer] Other 05-20-2023 14:00-0500 Body mass index (BMI) [Ratio] 25.37 kg/m2 Henrique [employer] Other [employer] [facility] [employer] Other 05-20-2023 14:00-0500 Body weight 92.08 kg Henrique Ball Other [employer] Other 05-20-2023 14:00-0500 Diastolic blood pressure 92 mm[Hg] [employer] Other [facility] [employer] Other 05-20-2023 14:00-0500 Respiratory rate 12 /min Henrique Mckeon Other [facility] [employer] Other 05-20-2023 14:00-0500 Systolic blood pressure 138 mm[Hg] Henrique Mckeon Other [facility] [employer] Other 05-20-2023 09:28-0500 Blood Pressure Location Kory RAE [facility] 05-20-2023 09:28-0500 Diastolic blood pressure 90 mm[Hg] Kory RAE [facility] 05-20-2023 09:28-0500 Heart rate 64 /min Kory RAE [facility] 05-20-2023 09:28-0500 Systolic blood pressure 123 mm[Hg] Kory RAE [facility] 03-23-2023 12:17-0400 Blood Pressure Location Kory RAE [facility] 03-23-2023 12:17-0400 Diastolic blood pressure 86 mm[Hg] Kory RAE [facility] 03-23-2023 12:17-0400 Heart rate 72 /min Kory RAE [facility] 03-23-2023 12:17-0400 Respiratory rate 16 /min Kory RAE [facility] 03-23-2023 12:17-0400 Systolic blood pressure 135 mm[Hg] Kory RAE [facility] 12-04-2022 09:30-0400 Body height 190.5 cm Henrique Ball Other [employer] Other 12-04-2022 09:30-0400 Body mass index (BMI) [Ratio] 25 kg/m2 Henrique Ball Other [employer] Other 12-04-2022 09:30-0400 Body weight 90.72 kg Henrique Ball Other [employer] Other 12-04-2022 09:30-0400 Diastolic blood pressure 82 mm[Hg] Henrique Ball Other [employer] Other 12-04-2022 09:30-0400 Respiratory rate 12 /min Henrique Ball Other [employer] Other 12-04-2022 09:30-0400 Systolic blood pressure 139 mm[Hg] Henrique Ball Other [employer] Other 07-25-2022 11:30-0500 Body height 190.5 cm Henrique Ball Other [employer] Other 07-25-2022 11:30-0500 Body mass index (BMI) [Ratio] 26.85 kg/m2 Henrique Ball Other [employer] Other 07-25-2022 11:30-0500 Body weight 97.43 kg Henrique Ball Other [employer] Other 07-25-2022 11:30-0500 Diastolic blood pressure 90 mm[Hg] Henrique Ball Other [employer] Other 07-25-2022 11:30-0500 Respiratory rate 12 /min Henrique Ball Other [employer] Other 07-25-2022 11:30-0500 Systolic blood pressure 126 mm[Hg] Henrique Ball Other [employer] Other 07-25-2022 09:30-0500 Body height 190.5 cm Henrique Ball Other [employer] Other 07-25-2022 09:30-0500 Body mass index (BMI) [Ratio] 26.85 kg/m2 Henrique Ball Other [employer] Other 07-25-2022 09:30-0500 Body weight 97.43 kg Henrique Ball Other [employer] Other 07-25-2022 09:30-0500 Diastolic blood pressure 90 mm[Hg] Henrique [employer] Other [employer] Other 07-25-2022 09:30-0500 Respiratory rate 12 /min Henrique [employer] Other [employer] Other 07-25-2022 09:30-0500 Systolic blood pressure 126 mm[Hg] Henrique Ball Other [employer] Other Encounters Encounter Date Encounter Type Care Provider Facility Start: 09-30-2024 End: 09-30-2024 ambulatory [facility] Work Phone: Start: 09-30-2024 End: 09-30-2024 Encounter for general adult medical examination without abnormal findings [facility] Start: 09-30-2024 End: 09-30-2024 Patient encounter procedure [facility] Work Phone: Start: 09-27-2024 Patient encounter status [facility] Start: 03-04-2024 End: 03-04-2024 ambulatory [facility] Work Phone: Start: 03-04-2024 End: 03-04-2024 Patient encounter procedure [facility] Work Phone: Start: 02-01-2024 End: 02-01-2024 ambulatory [facility] Work Phone: Start: 02-01-2024 End: 02-01-2024 Patient encounter procedure [facility] Work Phone: Start: 11-16-2023 Non-patient / Non-visit [facility] Work Phone: Start: 08-27-2023 End: 08-28-2023 ambulatory Kory RAE [place] Start: 08-27-2023 End: 08-27-2023 Lab Drop off Kory RAE [facility] Start: 07-20-2023 End: 07-20-2023 ambulatory Henrique Mckeon Other [employer] Other Start: 07-20-2023 Telephone encounter Henrique Mckeon [facility] Start: 07-15-2023 End: 07-15-2023 ambulatory Henrique Mckeon Other [employer] Other Start: 07-15-2023 Telephone encounter Henrique Mike CROCKETT [facility] Start: 05-26-2023 End: 05-27-2023 ambulatory Kory RAE [facility] Start: 05-26-2023 End: 05-26-2023 Lab Drop off Kory RAE [facility] Start: 05-20-2023 Office outpatient vi sit 15 minutes Henrique Mike [facility] Start: 05-20-2023 End: 05-21-2023 ambulatory Kory RAE [facility] [employer] Other Start: 05-20-2023 End: 05-20-2023 Patient encounter procedure Kory RAE [facility] Start: 05-15-2023 ambulatory Kory RAE Facili ty:[facility] [place] Start: 04-28-2023 End: 04-29-2023 ambulatory Kory RAE [facility] Start: 04-28-2023 End: 04-28-2023 Patient encounter procedure Kory RAE [facility] Start: 03-23-2023 ambulatory Kory RAE Facility :[facility] [place] Start: 03-23-2023 End: 03-24-2023 ambulatory Kory RAE Facility:[facility] [place] Start: 03-23-2023 End: 03-23-2023 Patient encounter procedure Kory RAE [facility] [place] Start: 12-09-2022 End: 12-09-2022 ambulatory Henrique Mckeon Other [employer] Other Start: 12-09-2022 Telephone encounter Henrique CROCKETT [facility] Start: 12-05-2022 End: 12-05-2022 ambulatory Henrique Mike Other [employer] Other Start: 12-05-2022 Telephone encounter Henrique CROCKETT [facility] Start: 12-04-2022 End: 12-04-2022 ambulatory Henrique Mckeon Other [employer] Other Start: 12-04-2022 Office outpatient vi sit 15 minutes Henrique Mc[facility] Start: 07-25-2022 End: 07-25-2022 ambulatory Henrique Mckeon Other [employer] Other Start: 07-25-2022 Encounter for genera l adult medical examination without abnormal findings Henrique Mckeon [facility] Start: 01-20-2023 Periodic preventive med est patient 40-64yrs Henrique Mckeon [facility] Start: 07-21-2022 Annual wellness visit Henrique Mckeon Other [facility] [employer] Other Start: 12-06-2020 End: 12-07-[address] HENRIQUE MCKEON Facility:[facility]1 Start: 09-24-2020 End: 02-07-2021 ambulatory NONE LISTED REQUEST Facility:[facility]1 Procedures Date Procedure Procedure Detail Performing Clinician Start: 05-20-2023 H/O: vasectomy Kory R RAE Start: 04-28-2023 Vasectomy Kory DE TERS Procedure on back Kory WA TERS Procedure on femur Kory W ATERS Plan of Treatment Date Care Activity Detail Author Comprehensive metabo lic 1999 panel - Serum or Plasma [facility] enter XR Cervical spine Vi ews W flexion and W extension [facility] enter XR Shoulder - right Views [facility] Immunizations Immunization Date Immunization Notes Care Provider Fa cility 06-26-2021 COVID-19 Vaccine Pfi zer - Documentation Purposes Only Henrique Mckeon Other [facility] 10-16-2020 COVID-19 Vaccine Pfi zer - Documentation Purposes Only Henrique Mckeon Other [facility] 09-24-2020 COVID-19 Vaccine Pfi zer - Documentation Purposes Only Henrique Mckeon Other [facility] Payers Date Payer Category Payer Unknown [id number] [id number] 1975 Unknown [id number] [id number] [id number] 1975 Unknown [id number] 2.16.8 [id number] 1977 Unknown [id number] 2.16.8 [id number] 1977 Unknown [id number] 2.16.8 [id number] 1977 Unknown [id number] 2.16.8 [id number] 1977 Unknown [id number] 2.16.8 [id number] [facility] [id number] 1957 Self-pay [id number] Unknown [id number] [id number] [id number] Social History Date Type Detail Facility Unknown if ever smoked [facility] Other Sex Assigned At [facility] Tobacco smoking status No Smokin g Status Entered [facility] Start: 05-20-2023 End: 07-20-2023 Tobacco smoking status Never smoked tobacco (finding) [facility] Tobacco smoking status Never [facility] Start: 1975 Sex Assigned At Male [facility] Start: 09-30-2024 Sex Male (finding) [facility] Functional Status Date Assessment Result Facility 05-20-2023 Functional Status N/A [facility] 03-23-2023 Functional Status N/A [facility] Clinical Notes 07-25-2022 to 08-27-2023 Note Date & Type Note Facility 08-27-2023 Evaluation + Plan note Diagnostic Tests PendingSemen Analysis Post Vasectomy 08/27/23Sperm Morphology 08/27/23 [facility] 07-15-2023 Evaluation note Encounter Date Diagnosis Assessment Notes Jul, Situational anxiety (ICD-10 - F41.8) [employer] Other [id number] Evaluation + Plan note Diagnostic Tests Pending * Semen Analysis Post Vasectomy 05/26/23 * Sperm Morphology 05/26/23 [facility]11-15-2023 Evaluation + Plan note Diagnostic Tests Pending * Semen Analysis Post Vasectomy 05/20/23 * Semen Analysis Post Vasectomy 05/20/23 Future Scheduled Tests Laboratory* Semen Analysis Post Vasectomy 05/20/23 * Semen Analysis Post Vasectomy 05/20/23 [facility] 11-15-2023 Evaluation note* Encounter Date Diagnosis Assessment Notes Treatment Notes Treatment Clinical Notes May, Situational anxiety (ICD-10 - F41.8) Healthy diet and exercise Avoid stimulants and alcohol. Ativan as needed for flying related panic symptoms May, Elevated BP without diagnosis of hypertension (ICD-10 - R03.0) This patient is instructed to consume a healthy, low-fat, low-salt diet. They are also encouraged to continue exercise to achieve/maintain a normal BMI. 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 Read, listen to music, deep/slow breathing [employer] Other 11-15-2023 Hospital Discharge instructions Patient Education 05/20/2023 10:20:16 Contraception Choices Contraception Choices Contraception, also called control, refers to methods or devices that prevent . Hormonal methods Contraceptive implant A contraceptive implant is a thin, plastic tube that contains a hormone that prevents . Itis different from an intrauterine device (IUD). It is inserted into the upper part of the arm by a health care provider. Implants can be effective for up to 3 years. Progestin-only injections Progestin-only injections are injections of progestin, a synthetic form of the hormone progesterone. They are given every 3 months by a health care provider. control pills control pills are pills that contain hormones that prevent . They must be taken oncea day, preferably at the same time each day. A prescription is needed to use this method of contraception. control patch The control patch contains hormones that prevent . It is placed on the skin and mustbe changed once a week for three weeks and removed on the fourth week. A prescription is needed to use this method of contraception. Vaginal ring A vaginal ring contains hormones that prevent . It is placed in the vagina for three weeksand removed on the fourth week. After that, the process is repeated with a new ring. A prescriptionis needed to use this method of contraception. Emergency contraceptive Emergency contraceptives prevent after unprotected sex. They come in pill form and can betaken up to 5 days after sex. They work best the sooner they are taken after having sex. Most emergency contraceptives are available without a prescription. This method should not be used as your only form of control. Barrier methods Male condom A male condom is a thin sheath that is worn over the penis during sex. Condoms keep sperm from going inside a woman's body. They can be used with a sperm- killing substance (spermicide) to increase their effectiveness. They should be thrown away after one use. Female condom A female condom is a soft, loose-fitting sheath that is put into the vagina before sex. The condom keeps sperm from going inside a woman's body. They should be thrown away after one use. Diaphragm A diaphragm is a soft, dome-shaped barrier. It is inserted into the vagina before sex, along with aspermicide. The diaphragm blocks sperm from entering the uterus, and the spermicide kills sperm. A diaphragm should be left in the vagina for 6 8 hours after sex and removed within 24 hours. A diaphragm is prescribed and fitted by a health care provider. A diaphragm should be replaced every 1 2 years, after giving , after gaining more than 15 lb (6.8 kg), and after pelvic surgery. Cervical cap A cervical cap is a round, soft latex or plastic cup that fits over the cervix. It is inserted intothe vagina before sex, along with spermicide. It blocks sperm from entering the uterus. The cap should be left in place for 6 8 hours after sex and removed within 48 hours. A cervical cap must be prescribed and fitted by a health care provider. It should be replaced every 2 years. Sponge A sponge is a soft, circular piece of polyurethane foam with spermicide in it. The sponge helps block sperm from entering the uterus, and the spermicide kills sperm. To use it, you make it wet and then insert it into the vagina. It should be inserted before sex, left in for at least 6 hours after sex, and removed and thrown away within 30 hours. Spermicides Spermicides are chemicals that kill or block sperm from entering the cervix and uterus. They can come as a cream, jelly, suppository, foam, or tablet. A spermicide should be inserted into the vagina with an applicator at least 10 15 minutes before sex to allow time for it to work. The process must be repeated every time you have sex. Spermicides do not require a prescription. Intrauterine contraception Intrauterine device (IUD) An IUD is a T-shaped device that is put in a woman's uterus. There are two types: Hormone IUD.This type contains progestin, a synthetic form of the hormone progesterone. This type can stay in place for 3 5 years. Copper IUD.This type is wrapped in copper wire. It can stay in place for 10 years. Permanent methods of contraception Female tubal ligation In this method, a woman's fallopian tubes are sealed, tied, or blocked during surgery to prevent eggs from traveling to the uterus. Hysteroscopic sterilization In this method, a small, flexible insert is placed into each fallopian tube. The inserts cause scartissue to form in the fallopian tubes and block them, so sperm cannot reach an egg. The procedure takes about 3 months to be effective. Another form of control must be used during those 3 months. Male sterilization This is a procedure to tie off the tubes that carry sperm (vasectomy). After the procedure, the mancan still ejaculate fluid (semen). Another form of control must be used for 3 months after the procedure. Natural planning methods Natural family planning In this method, a couple does not have sex on days when the woman could become . Calendar method In this method, the woman keeps track of the length of each menstrual cycle, identifies the days when can happen, and does not have sex on those days. Ovulation method In this method, a couple avoids sex during ovulation. Symptothermal method This method involves not having sex during ovulation. The woman typically checks for ovulation by watching changes in her temperature and in the consistency of cervical mucus. Post-ovulation method In this method, a couple waits to have sex until after ovulation. Where to find more information Centers for Disease Control and Prevention: www.cdc.gov Summary Contraception, also called control, refers to methods or devices that prevent . Hormonal methods of contraception include implants, injections, pills, patches, vaginal rings, and emergency contraceptives. Barrier methods of contraception can include male condoms, female condoms, diaphragms, cervical caps, sponges, and spermicides. There are two types of IUDs (intrauterine devices). An IUD can be put in a woman's uterus to prevent for 3 5 years. Permanent sterilization can be done through a procedure for males and females. Natural family planning methods involve nothaving sex on days when the woman could become . This information is not intended to replace advice given to you by your health care provider. Make sure you discuss any questions you have with your health care provider. Document Revised: 11/26/2020 Document Reviewed: 11/26/2020 [employer] Patient Education 2022 [employer]. Follow Up Care 05/06/2023 09:52:46 With:BUTCH OROZCO, Kory Nixon, URL Address: [facility] [address] , [place] [address]- When: Unknown [facility] 10-24-2023 Note [id number] 04-28-2023 Hospital Discharge instructions Patient Education 04/28/2023 09:47:26 [facility] - Vasectomy Discharge Instructions (CUSTOM) Vasectomy The following instructions must be followed closely: -If you need pain pills, start before pain becomes intense. Antibiotics and pain pills are frequently less upsetting to your stomach if you take them with food such as crackers or bread. -If you have excessive or persistent pain, swelling, bleeding, nausea, vomiting, or any problems, you should first call your surgeon for advice. If you are unable to contact your surgeon, seek help from a hospital emergency room. If you were given drugs to make you drowsy or pain medication follow these instructions: -You should spend the remainder of the day and evening resting. -You should not attempt to walk, including going to the bathroom without assistance. You may be lightheaded from the medication you received. -Eat light today to avoid nausea. You should be able to return to your normal diet 24 to 36 hours after your procedure. -For the next 24 hours, do not consume alcohol, attempt to drive, use power tools, sign important documents or make important decisions. After that only do so if you feel perfectly normal and alert. -Follow carefully any verbal or written instructions your surgeon may give you. Surgeons written instructions with a copy given to patient: -No sex for 1 to 2 weeks. - No unprotected sex, until results of your sperm count have been verified as negative by your doctor, and these results given to you. -You may shower in 2 days. -Take the pain medication and antibiotics as directed. -Apply frozen peas or corn to your scrotum, 15 minutes on and 15 minutes off. -Call the office to schedule follow up appointment 1 to 2 weeks after your procedure. Follow Up Care 03/23/2023 14:10:20 With:Kory RAE Address: [facility] [address] [place] [address]- Business (1) When:05/12/2023 09:47:09 [facility]09-18-2023 NoteUrology Vasectomy Vasectomy is a procedure in which the vas deferens is cut and then tied or burned (cauterized). Thevas deferens is a tube that carries sperm from the testicle to the part of the body that drains urine from the bladder (urethra). This procedure blocks sperm from going through the vas deferens and penis during ejaculation. This ensures that sperm does not go into the vagina during sex. Vasectomy does not affect sexual desire or performance and does not prevent sexually transmitted infections. Vasectomy is considered a permanent and very effective form of control (contraception). The decision to have a vasectomy should not be made during a stressful time, such as after the loss of a or a divorce. You and your partner should decide on whether to have a vasectomy when you are sure that you do not want children in the future. Tell a health care provider about: ? Any allergies you have. ? All medicines you are taking, including vitamins, herbs, eye drops, creams, and wmmt-luv-lnqrwvk medicines. ? Any problems you or family members have had with anesthetic medicines. ? Any blood disorders you have. ? Any surgeries you have had. ? Any medical conditions you have. What are the risks? Generally, this is a safe procedure. However, problems may occur, including: ? Infection. ? Bleeding and swelling of the scrotum. The scrotum is the sac that contains the testicles, blood vessels, and structures that help deliver sperm and semen. ? Allergic reactions to medicines. ? Failure of the procedure to prevent . There is a very small chance that the tied or cauterized ends of the vas deferens may reconnect (recanalization). If this happens, you could still make a woman . ? Pain in the scrotum that continues after you heal from the procedure. What happens before the procedure? Medicines ? Ask your health care provider about: ? Changing or stopping your regular medicines. This is especially important if you are taking diabetes medicines or blood thinners. ? Taking medicines such as aspirin and ibuprofen. These medicines can thin your blood. Do not take these medicines unless your health care provider tells you to take them. ? Taking sgzm-vve-kxguvud medicines, vitamins, herbs, and supplements. ? You may be told to take a medicine to help you relax (sedative) a few hours before the procedure. General instructions ? Do not use any products that contain nicotine or tobacco for at least 4 weeks before the procedure. These products include cigarettes, e-cigarettes, and chewing tobacco. If you need help quitting, ask your health care provider. ? Plan to have a responsible adult take you home from the hospital or clinic. ? If you will be going home right after the procedure, plan to have a responsible adult care for you for the time you are told. This is important. ? Ask your health care provider: ? How your surgery site will be marked. ? What steps will be taken to help prevent infection. These steps may include: ? Removing hair at the surgery site. ? Washing skin with a germ-killing soap. ? Taking antibiotic medicine. What happens during the procedure? ? You will be given one or more of the following: ? A sedative, unless you were told to take this a few hours before the procedure. ? A medicine to numb the area (local anesthetic). ? Your health care provider will feel, or palpate, for your vas deferens. ? To reach the vas deferens, one of two methods may be used: ? A very small incision may be made in your scrotum. ? A punctured opening may be made in your scrotum, without an incision. ? Your vas deferens will be pulled out of your scrotum and cut. Then, the vas deferens will be closed in one of two ways: ? Tied at the ends. ? Cauterized at the ends to seal them off. ? The vas deferens will be put back into your scrotum. ? The incision or puncture opening will be closed with absorbable stitches (sutures). The sutures will eventually dissolve and will not need to be removed after the procedure. ? The procedure will be repeated on the other side of your scrotum. The procedure may vary among health care providers and hospitals. What happens after the procedure? ? You will be monitored to make sure that you do not have problems. ? You will be asked not to ejaculate for at least 1 week after the procedure, or for as long as youare told. ? You will need to use a different form of contraception for 2?4 months after the procedure, until you have test results confirming that there are no sperm in your semen. ? You may be given scrotal support to wear, such as a jockstrap or underwear with a supportive pouch. ? If you were given a sedative during the procedure, it can affect you for several hours. Do not drive or operate machinery until your health care provider says that it is safe. Summary ? Vasectomy blocks sperm from being released during ej (more content not included)...[facility]09-18-2023 Hospital Discharge instructions Patient Education 03/23/2023 13:38:49 Vasectomy Vasectomy Vasectomy is a procedure in which the vas deferens is cut and then tied or burned (cauterized). Thevas deferens is a tube that carries sperm from the testicle to the part of the body that drains urine from the bladder (urethra). This procedure blocks sperm from going through the vas deferens and penis during ejaculation. This ensures that sperm does not go into the vagina during sex. Vasectomy does not affect sexual desire or performance and does not prevent sexually transmitted infections. Vasectomy is considered a permanent and very effective form of control (contraception). The decision to have a vasectomy should not be made during a stressful time, such as after the loss of a or a divorce. You and your partner should decide on whether to have a vasectomy when you are sure that you do not want children in the future. Tell a health care provider about: Any allergies you have. All medicines you are taking, including vitamins, herbs, eye drops, creams, and aeaz-nrd-jzjbzzw medicines. Any problems you or family members have had with anesthetic medicines. Any blood disorders you have. Any surgeries you have had. Any medical conditions you have. What are the risks? Generally, this is a safe procedure. However, problems may occur, including: Infection. Bleeding and swelling of the scrotum. The scrotum is the sac that contains the testicles, blood vessels, and structures that help deliver sperm and semen. Allergic reactions to medicines. Failure of the procedure to prevent . There is a very small chance that the tied or cauterized ends of the vas deferens may reconnect (recanalization). If this happens, you could still make a woman . Pain in the scrotum that continues after you heal from the procedure. What happens before the procedure? Medicines Ask your health care provider about: ?Changing or stopping your regular medicines. This is especially important if you are taking diabetes medicines or blood thinners. ?Taking medicines such as aspirin and ibuprofen. These medicines can thin your blood. Do not take these medicines unless your health care provider tells you to take them. ?Taking ched-rxh-lzssnqu medicines, vitamins, herbs, and supplements. You may be told to take a medicine to help you relax (sedative) a few hours before the procedure. General instructions Do not use any products that contain nicotine or tobacco for at least 4 weeks before the procedure.These products include cigarettes, e-cigarettes, and chewing tobacco. If you need help quitting, ask your health care provider. Plan to have a responsible adult take you home from the hospital or clinic. If you will be going home right after the procedure, plan to have a responsible adult care for you for the time you are told. This is important. Ask your health care provider: ?How your surgery site will be marked. ?What steps will be taken to help prevent infection. These steps may include: ?Removing hair at the surgery site. ?Washing skin with a germ-killing soap. ?Taking antibiotic medicine. What happens during the procedure? You will be given one or more of the following: ?A sedative, unless you were told to take this a few hours before the procedure. ?A medicine to numb the area (local anesthetic). Your health care provider will feel, or palpate, for your vas deferens. To reach the vas deferens, one of two methods may be used: ?A very small incision may be made in your scrotum. ?A punctured opening may be made in your scrotum, without an incision. Your vas deferens will be pulled out of your scrotum and cut. Then, the vas deferens will be closedin one of two ways: ?Tied at the ends. ?Cauterized at the ends to seal them off. The vas deferens will be put back into your scrotum. The incision or puncture opening will be closed with absorbable stitches (sutures). The sutures will eventually dissolve and will not need to be removed after the procedure. The procedure will be repeated on the other side of your scrotum. The procedure may vary among health care providers and hospitals. What happens after the procedure? You will be monitored to make sure that you do not have problems. You will be asked not to ejaculate for at least 1 week after the procedure, or for as long as you are told. You will need to use a different form of contraception for 2 4 months after the procedure, until you have test results confirming that there are no sperm in your semen. You may be given scrotal support to wear, such as a jockstrap or underwear with a supportive pouch. If you were given a sedative during the procedure, it can affect you for several hours. Do not drive or operate machinery until your health care provider says that it is safe. Summary Vasectomy blocks sperm from being released during ejaculation. This procedure is considered a permanent and very effective form of control. Your scrotum will be numbed with medicine (local anesthetic) for the procedure. After the procedure, you will be asked not to ejaculate for at least 1 week, or for as long as you are told. You will also need to use a different form of contraception until your test results confirm that there are no sperm in your semen. This information is not intended to replace advice given to you by your health care provider. Make sure you discuss any questions you have with your health care provider. Document Revised: 11/08/2020 Document Reviewed: 11/08/2020 [employer] Patient Education 2022 [employer]. Follow Up Care 12/30/2022 13:05:02 With:BUTCH OROZCO, Kory Nixon, URL Address: [facility] [address], [place] [address]- [phone] When: Unknown Comments:[facility] Evaluation note* Encounter Date Diagnosis Assessment Notes Treatment Notes Treatment Clinical Notes Dec, Recurrent oral herpes simplex (ICD-10 - B00.2) [facility] Other 06-02-2023 Evaluation note* Encounter Date Diagnosis Assessment Notes Treatment Notes Treatment Clinical Notes Dec, Colon cancer screening (ICD-10 - Z12.11) [facility] Other 06-01-2023 Evaluation note* Encounter Date Diagnosis Assessment Notes Treatment Notes Treatment Clinical Notes Dec, Lumbar spondylosis (ICD-10 - M47.816) The patient is instructed to avoid bending, twisting or lifting. They are to use intermittent heat and ice as needed. They may schedule a massage or gentle manipulation. They may safely use Tylenol as needed. Dec, Recurrent oral herpes simplex (ICD-10 - B00.2) Continue suppressive doses of Valtrex Instructed to take extra dose for prodrome of tingling/burning [facility] Other 01-20-2023 Evaluation note* Encounter Date Diagnosis Assessment Notes Treatment Notes Treatment Clinical Notes Jul, Wellness examination (ICD-10 - Z00.00) Healthy diet and exercise. Reviewed age-appropriate preventive testing recommended. Jul, CARLIN (generalized anxiety disorder) (ICD-10 - F41.1) Ativan for flight, take 30 - 60 min prior to entering plane Jul, Elevated BP without diagnosis of hypertension (ICD-10 - R03.0) This patient is instructed to consume a healthy, low-fat, low-salt diet. They are also encouraged to continue exercise to achieve/maintain a normal BMI. Goal < 140/90 Can check at home: take 3 readings and average 2nd and 3rd together. Can stop in office to have BP checked any time [facility] Other Evaluation + Plan note Future Appointments Appointment Date:04/22/2023 09:00:00 AM Scheduled Provider: Location:[facility] Appointment Type:Urology CALL PAT FT Appointment Date:04/28/2023 09:00:00 AM Scheduled Provider: Location:[facility] Appointment Type:Urology FT Appointment Date:05/15/2023 11:00:00 AM Scheduled Provider:Kory RAE MD Location:[facility] Appointment Type:URO Office Visit [facility] evaluation + Plan note Future Appointments Appointment Date:05/15/2023 11:00:00 AM Scheduled Provider:Kory RAE MD Location:[facility] Information[facility] Other evaluation noteNo assessment information available [facility] Work Phone: evaluation note* Diagnosis Onset Date Resolution Status Acute bronchitis due to other specified organisms acute Productive cough acute [facility] Work Phone: Evalusvcbl note* Diagnosis Onset Date Resolution Status Admit Date Neck pain acute September 30 9:54am Shoulder pain, right acute Noe h 2024 9:54am Wellness examination acute Noe h 2024 9:54am Screening for colon cancer noneactiv e September 30, 2024 9:54am [facility] Work Phone: Hissqig general Narrative - Reported* Type Description Date Medical History CARLIN (generalized anxiety disorde r) Medical History Wellness examination Medical History Herpesviral vesicular dermatitis Medical History Lumbar spondylosis Medical History 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 Surgical History back surgery Surgical History femur shattered Surgical History LUMBAR DISECTOMY 03/2000 Surgical History ORIF RIGHT FEMUR 2005 Hospitalization History see above [facility] Other Hisfbtu general Narrative - Reported* Type Description Date Medical History CARLIN (generalized anxiety disorde r) Medical History Wellness examination Medical History Herpesviral vesicular dermatitis Medical History Lumbar spondylosis Medical History 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 Medical History Anisocoria Surgical History back surgery Surgical History femur shattered Surgical History LUMBAR DISECTOMY 03/2000 Surgical History ORIF RIGHT FEMUR 2005 Hospitalization History see above [facility] Other Hospital course Narrative No data available for this section [facility] Hospital Discharge instructions No data available for this section [facility] No data available for this section [facility] Summary Purpose Family History Relationship Condition Age at Onset Recorded Date/T catherine father Arthritis Unknown Hypertension Unknown Advance Directives Advance Directive Response Recorded Date/ Time Advance Directives No November 15 10:56am Chief Complaint and Reason for Visit Chief Complaint Amb Documentation cough, headache , not feeling well Chief Complaint Cough Reason for Visit Acute bronchitis due to other specified organisms Productive cough Chief Complaint Admit Date poss herniated disc in neck September 30, 2024 9:54am Reason for Visit Admit Date Neck pain September 30, 2024 9:5 4am Shoulder pain, right September 30, 2024 9: 54am Wellness examination September 30, 2024 9: 54am Screening for colon cancer September 30, 025 9:54am Additional Source Comments (unrecognized sect ion and content) No Status Records FoundNo Status Records Found INFORMATION SOURCE (unrecogn ized section and content) DATE CREATED AUTHOR 02/09/2021 [facility] DATE CREATED AUTHOR AUTHOR'S ORGANIZ ATION 09/04/2023 [facility] REASON FOR VISIT (unrecogniz ed section and content) ANXIETY, PRESCRIPTION DISCUS SIONwellness6 month Follow upNo InformationNo InformationAnxiety Medication for PlanemedicationNo Information Patient Care team informatio n (unrecognized section and content) Team Status: Active Member Role Status Dates Henrique Mckeon DO Primary Care Provider Active Team Status: Inactive Member Role Status Dates Henrique Mckeon DO Primary Care Provide r, Attending Provider Active Start: March 04, 2024 End: March 04, 2024 Team Status: Active Member Role Status Dates Henrique Mckeon DO Primary Care Provider Active Start: November 16, 2023 BERTHA Michael Attending Provider Active Start : November 16, 2023 Team Status: Inactive Member Role Status Dates Henrique Mckeon , Primary Care Provide r, Attending Provider Active Start: February 01, 2024 End: February 01, 2024 Team Status: Inactive Member Role Status Dates Henrique Mckeon , Primary Care Provide r, Attending Provider Active Start: September 30, 2024 End: September 30, 2024 Goals (unrecognized section and content) Goals may be documented in a n alternate section FOR RECORDS PERTAINING TO PATIENTS WHO ARE OR HAVE BEEN ENROLLED IN A CHEMICAL DEPENDENCY/SUBSTANCEABUSE PROGRAM, SOME INFORMATION MAY BE OMITTED. This clinical summary was aggregated from multiple sources. Caution should be exercised in using it in the provision of clinical care. This summary normalizes information from multiple sources, and as a consequence, information in this document may materially change the coding, format and clinical context of patient data. In addition, data may be omitted in some cases. CLINICAL DECISIONS SHOULD BE BASED ON THE PRIMARY CLINICAL RECORDS. [facility]. provides no warranty or guarantee of the accuracy or completeness of information in this document.
[2024-10-09 06:47] VITALS: BP 176/113; PULSE 72; TEMP 36.6; O2SAT 98; BMI 25.6
[2024-10-09] MEDS: METHYLPREDNISOLONE SOD SUCC PF 40 MG/ML VIAL IM (07:46)
[2024-10-09] MEDS: KETOROLAC TROMETHAMINE 30 MG/ML VIAL IM (07:47)
[2024-10-09 07:51] VITALS: BP 168/92
--- NOTE | 2024-10-09 08:56 | ED.UPPEXIN1 ---
HPI HPI - Extremity Injury (Upper) General Chief Complaint: Recheck/Abnormal Lab/Rx Stated Complaint: UE PAIN Time Seen by Provider: 10/09/24 07:13 Source: patient Mode of arrival: walk-in Limitations: no limitations History of Present Illness HPI narrative: The patient was already evaluated by his primary care doctor almost a week ago and he was provided with the prednisone pack, the patient mentioned that over the last 2 days he was feeling much better but today he started having more pain in the right side, noted to have a history of multiple neck surgeries before and he is presenting to us today with a right sided arm pain, the pain starts from the shoulder down to his hand there is no numbness or tingling, the patient does not have any significant weakness in the right side and he is left-handed Patient mentioned that there is no trauma or fall Related Data Home Medications ?Medication ?Instructions ?Recorded ?Confirmed tizanidine 4 mg tablet 4 mg PO DAILY 10/09/24 10/09/24 Previous Rx's ?Medication ?Instructions ?Recorded diclofenac sodium 75 mg 75 mg PO BID PRN pain #14 tabs 10/09/24 tablet,delayed release prednisone 20 mg tablet 40 mg (2 x 20 mg) PO DAILY 3 days 10/09/24 #6 tabs Allergies Allergy/AdvReac Type Severity Reaction Status Date / Time No Known Drug Allergies Allergy Verified 10/09/24 06:52 Opioid HPI Opioid Management Most Recent Pain and Opioid Data: Last SEP Pain Assessment 10/09/24 07:47 Review of Systems ROS Status of ROS 10 or more systems reviewed and unremarkable except as noted in history and below PFSH PFSH Social History Little interest or pleasure in doing things: not at all Feeling down, depressed, or hopeless: not at all Exam Narrative Exam Narrative: Nurses notes and vital signs reviewed and patient is not hypoxic. General: Well-appearing and in no apparent distress. Skin: Warm, dry, no pallor noted. No rash. Head: Normocephalic, atraumatic. Neck: Supple, the patient have tenderness at the almost at the lower cervical level intervertebral line with the paraspinal muscle tenderness, Cardiovascular: Regular Rate and Rhythm without murmur, gallop or rub. Respiratory: No accessory muscle use or respiratory distress. Lungs are clear to auscultation, no wheezing, rales or rhonchi Chest Wall: no tenderness Back: No midline thoracic or lumbar vertebral tenderness. No CVA tenderness Musculoskeletal: normal ROM, no calf or popliteal tenderness, no lower extremity edema/swelling Constitutional Vital Signs, click to edit/add: Last Vital Signs Temp 97.8 F 10/09/24 06:47 Pulse 72 10/09/24 06:47 Resp 16 10/09/24 06:47 BP 168/92 H 10/09/24 07:51 Pulse Ox 98 10/09/24 06:47 Course Vital Signs Vital signs: Vital Signs Temperature 97.8 F 10/09/24 06:47 Pulse Rate 72 10/09/24 06:47 Respiratory Rate 16 10/09/24 06:47 Blood Pressure 176/113 H 10/09/24 06:47 Pulse Oximetry 98 10/09/24 06:47 Temperature 97.8 F 10/09/24 06:47 Pulse Rate 72 10/09/24 06:47 Respiratory Rate 16 10/09/24 06:47 Blood Pressure 168/92 H 10/09/24 07:51 Pulse Oximetry 98 10/09/24 06:47 MDM - Extremity Injury (Upper) MDM Narrative Medical decision making narrative: The patient initially was offered to have a CAT scan of the cervical spine but he was just recently had an x-ray of his cervical spine showing some arthritic changes in the lower cervical level The patient already had a CBC and chemistry as outpatient as well When I explained that to him that the CAT scan might help he asked about how much it would be causing him more and due to the fact that it clinically over Thursday a CT of the cervical spine with the fact that he does not have any alarming spinal cord compression symptoms the patient will mostly be seen in the outpatient After being provided with a Toradol and Solu-Medrol the patient was feeling much better With a good clinical improvement The patient then was referred to the neurosurgery as outpatient for further evaluation Patient to come back in case any worsening of symptoms especially weakness The patient is to follow up with primary care physician in next 2-3 days or to return to the emergency department should any of the signs or symptoms worsen or new symptoms develop. The patient agrees with the following Diagnosis and Treatment plan and the patient will be discharged home. Discharge Plan Discharge Chief Complaint: Recheck/Abnormal Lab/Rx Clinical Impression: Right arm pain Patient Disposition: Home, Self-Care Time of Disposition Decision: 08:20 Condition: Good Prescriptions / Home Meds: New prednisone 20 mg tablet 40 mg PO DAILY 3 Days Qty: 6 0RF diclofenac sodium 75 mg tablet,delayed release (DR/EC) 75 mg PO BID PRN (Reason: pain) Qty: 14 0RF No Action tizanidine 4 mg tablet 4 mg PO DAILY Print Language: Uzbek Instructions: Arm Pain (ED) Referrals: Henrique Mckeon DO [Primary Care Provider] - 1 week JUAN PABLO QIU [Physician] - As soon as possible ([address] [facility] [address], [place] [address]) Discharge Date/Time: 10/09/24 08:33
== END 2024-10-09 08:33 | disposition home or self-care (01) ==
PROVIDERS: Emergency Provider Internal Medicine; PCP Internal Medicine
DX: M79.621 Pain in right upper arm (principal); M79.631 Pain in right forearm
CPT/HCPCS: 96372; 99284; J1885; J2919

== ENCOUNTER 2024-10-18 14:20 | Outpatient (OUT) | payer OTHER, SELFPAY ==
--- NOTE | 2024-10-18 14:32 | MR_ITS ---
[address] [address] Patient Name: ZEESHAN GIRALDO MRN: [id number] date: 1975 Sex: M Assigned Patient Location: MRI Current Patient Location: MRI Accession/Order Number: [id number] Exam Date: 10/18/2024 15:47 Report Date: 10/18/2024 15:53 At the request of: RHIANNA LECHUGA DO Procedure: MR cervical spine wo con EXAMINATION: MRI C-SPINE WITHOUT IV CONTRAST CLINICAL HISTORY: Neck Pain, Weakness Of Right Upper Extremity COMPARISON: CT cervical spine 09/30/2024 TECHNIQUE: Multiecho imaging was performed in the sagittal and axial planes without contrast administration. FINDINGS: Vertebral body heights appear maintained. No bone marrow edema. Spinal cord demonstrate no abnormal signal. No paraspinal mass. No prevertebral soft tissue swelling. At C2-3: No posterior disc pathology. No neural canal or foraminal stenosis. At C3-4: No posterior disc pathology. No neural canal or foraminal stenosis. At C4-5: No posterior disc pathology. No neural canal or foraminal stenosis. At C5-6: Disc osteophyte complex present causing mild canal and bilateral neural foraminal stenosis. There appears to be approximately 2 mm retrolisthesis present. At C6-7: Disc osteophyte complex present causing mild canal and bilateral neural foraminal stenosis. At C7-T1: No posterior disc pathology. No neural canal or foraminal stenosis. MR/MR cervical spine wo con IMPRESSION: Disc osteophyte complex at C5-6 and C6-7 causing mild canal and bilateral neural foraminal stenosis. Impression dictated by: Demarcus Hidalgo Jr., D.O.10/18/2024 3:53 PM Dictation Location: [place] [address] Electronically authenticated by: [id number] Y Date: 10/18/2024 15:53
== END 2024-10-18 14:21 | disposition home or self-care (01) ==
PROVIDERS: PCP Internal Medicine; Visit Provider Internal Medicine
DX: M54.2 Cervicalgia (principal); R29.898 Other symptoms and signs involving the musculoskeletal system; M25.78 Osteophyte, vertebrae
CPT/HCPCS: 72141

== ENCOUNTER 2025-02-17 23:19 | Inpatient (IN) | payer OTHER, SELFPAY ==
[2025-02-17] VITALS (7 sets, daily range): BP systolic 164–187; BP diastolic 100–122; PULSE 78–86; TEMP 36.7; O2SAT 96–98; BMI 28.1
--- NOTE | 2025-02-17 23:24 | ECG_ITS ---
[facility] Test Date: 2025-02-17 Pat Name: ZEESHAN GIRALDO Department: Room: - Gender: Male [employer]r: : 1975 Requested By: [id number] Order Number: [id number] Reading MD: DUONG GIBBONS M.D. Measurements Intervals [place] Rate: 83 P: -[id number] KS: -[id number] QRS: -16 QRSD: 96 T: 7 QT: 364 QTc: 404 Interpretive Statements 1210 Atrial fibrillation abnormal ECG No previous ECG available for comparison Electronically Signed On 02-18-2025 15:16:32 EDT by DUONG GIBBONS M.D.
--- OUTSIDE RECORDS SUMMARY | 2025-02-17 23:24 | XMS_ITS | CCD ---
Author Organization [facility] Care Team Providers Care Risk Engineer Name Role Phone MIKE, DR MOCTEZUMA Admitting Unavailable BALL, DR MOCTEZUMA Attending Unavailable BALL, DR MOCTEZUMA Primary Care Unavailable BALL, DR MOCTEZUMA Consulting Unavailable WEST, DR JEREMIAS Knight Consulting Unavailable REQUEST, DR MORGAN LISTED Admitting Unavaila ble REQUEST, DR MORGAN LISTED Attending Unavaila ble REQUEST, NONE LISTED Consulting Unavaila ble BALL, DR MOCTEZUMA Primary Care Unavailable Henrique Mckeon Unavailable HENRIQUE MCKEON Primary Care Physician BUTCH, Kory Nixon Attending Unavailable RAE, Kory Nixon Attending Unavailable RAE, Kory R Referring Unavailable RAE, Kory R Admitting Unavailable RAE, Kory R Admitting Unavailable RAE, Kory R Attending Unavailable RAE, Kory R Admitting Unavailable RAE, Kory R Attending Unavailable RAE, Kory R Attending Unavailable RAE, Kory R Attending Unavailable Henrique Mckeon DO Primary Care Provider [phone] Russel Toro MD Attending Provider [phone] Henrique Mckeon Primary Care Unavailable Russel Toro Attending Russel Cedillo Admitting Unavailable Henrique Mckeon DO Primary Care Provider Russel Waldron MD Attending Provider [phone] Henrique Mckeon DO Attending Provider [phone] Allergies Allergy Classification Reported Allergen(s) Allergy Type Date of Onset Reaction(s) Facility (1 source) No Known Medication Allergies; Translations: [No Known Medication Allergies] Propensity to adverse reactions (disorder) [facility] Repository Medications Current Medications Medication Drug Class(es) Dates Sig (Normalized) Sig (Original) carvedilol 3.125 mg oral tablet (1 source) alpha-Adrenergic Sally, beta-Adrenergic Sally Start: 02-17-2025 take 1 tablet by mouth twice daily at mealtime cephalexin 500 mg oral capsule (1 source) Cephalosporin Antibacterial Start: 03-23-2023 End: 03-28-2023 take 1 capsule by mouth twice daily at mealtime Keflex 500 mg Cap 500 mg = 1 cap(s), Oral, BID, start with first meal after procedure, X 5 day(s), # 10 cap(s), Refills(s) 0, Pharmacy: [facility]/pharmacy #[id number], 190, cm, 03/23/23 12:39:00 EDT, Height/Length Dosing, 88, kg, 03/23/23 12:39:00 EDT, Weight Dosing Start Date: 03/23/23 Stop Date: 03/28/23 Status: Ordered diazePAM 10 mg oral tablet (2 sources) Benzodiazepine Start: 03-23-2023 Valium 10 mg Tab 10 mg = 1 tab(s), Oral, Once, take one hour prior to procedure, # 1 tab(s), Refills(s) 0, Pharmacy: [facility]/pharmacy #[id number], 190, cm, 03/23/23 12:39:00 EDT, Height/Length Dosing, 88, kg, 03/23/23 12:39:00 EDT, Weight Dosing Start Date: 03/23/23 Status: Ordered gabapentin 100 mg oral capsule (6 sources) Anti-epileptic Agent Start: 01-12-2025 take 1 capsule by mouth at bedtime Start: 10-25-2024 End: 11-10-2024 take 1 capsule by mouth once daily at bedtime Gabapentin 100 mg capsule Discontinued 100 MG PO Daily at bedtime October 25, 2024 12:00am November 10, 2024 8:30am LORazepam 0.5 mg oral tablet (8 sources) [...] as needed for 7 days Jul, Active Completed/Discontinued Medications Medication Drug Class(es) Dates Sig (Normalized) Sig (Original) amoxicillin 875 mg oral tablet (8 sources) Penicillin-class Antibacterial Start: 03-29-2018 take 1 tablet by mouth every twelve hours Amoxicillin 875 MG 1 tablet Orally every 12 hrs for 7 days Mar, Not-Taking/PRN amoxicillin 875 mg / clavulanate 125 mg oral tablet (7 sources) Penicillin-class Antibacterial Start: 03-04-2024 End: 09-30-2024 take 1 tablet by mouth every twelve hours Amoxicillin-Pot Clavulanate 875-125 mg tablet Discontinued 1 TAB PO Every 12 hours 14 March 04, 2024 12:00am September 30, 2024 10:10am benzonatate 200 mg oral capsule (7 sources) Non-narcotic Antitussive Start: 03-04-2024 End: 09-30-2024 take 1 capsule by mouth three times daily Benzonatate 200 mg capsule Discontinued 200 MG PO Three times daily 30 March 04, 2024 12:00am September 30, 2024 10:15am doxycycline hyclate 100 mg oral capsule (8 sources) Tetracycline-class Drug Start: 02-01-2024 End: 03-04-2024 [...] at night with food Orally Mar, Not-Taking/PRN predniSONE 20 mg oral tablet (11 sources) Start: 09-30-2024 End: 11-08-2024 Prednisone 20 mg tablet Discontinued 20 MG PO As Directed October 25, 2024 9:49am November 08, 2024 4:01pm 1 tab tid w/ food x 1 day, then bid w/ food x 2 days, then qd w/ food x 7 days ProAir HFA 108 (90 Base) MCG/ACT (8 [...] needed Inhalation every 4-6 hrs Mar, Not-Taking tiZANidine 4 mg oral tablet (6 sources) Central alpha-2 Adrenergic Agonist Start: 09-30-2024 End: 10-25-2024 take 1 tablet by mouth once daily at bedtime as needed Tizanidine 4 mg tablet Discontinued 4 MG PO Daily at bedtime as needed for muscle spasticity 14 14 September 30, 2024 12:00am October 25, 2024 9:48am valACYclovir 1000 mg oral tablet (20 sources) Herpesvirus Nucleoside Analog DNA Polymerase Inhibitor, Herpes Simplex Virus Nucleoside Analog DNA Polymerase Inhibitor, Herpes Zoster Virus Nucleoside Analog DNA Polymerase Inhibitor Start: 11-16-2023 End: 01-12-2025 Valacyclovir 1 gram tablet Discontinued 0 .ROUTE .COMPLEX 180 October 06, 2024 9:19pm January 12, 2025 6:52am TAKE 1 TABLET TWICE A DAY Start: 11-16-2023 End: 10-06-2024 Valacyclovir 1 gram tablet Discontinued 0 .ROUTE .COMPLEX 180 November 16, 2023 1:21pm October 06, 2024 9:19pm TAKE 1 TABLET TWICE A DAY Start: 11-16-2023 Valacyclovir 1 gram tablet Active [...] 1 tablet Orally Once a day Active Problems Problem Classification Problem Date Documented Date Episodic/Chronic Acute bronchitis (8 sources) Acute infective bronchitis; Translations: [Acute bronchitis due to other specified organisms] 03-04-2024 Episodic Anxiety disorders (19 sources) Generalized anxiety disorder; Translations: [Generalized anxiety disorder] Onset: 06-09-2017 Chronic Cardiac dysrhythmias (2 sources) Atrial fibrillation; Translations: [Unspecified atrial fibrillation] 02-17-2025 Chronic Contraceptive and procreative management (1 source) Contraception status; Translations: [Encounter for other general counseling and advice on contraception] Onset: 03-19-2023 Episodic Heart valve disorders (1 source) Heart murmur; Translations: [Cardiac murmur, unspecified] 02-17-2025 Episodic Nonspecific chest pain (4 sources) Other chest pain; Translations: [OTHER CHEST PAIN] Onset: 12-06-2020 Episodic Other circulatory disease (3 sources) Elevated blood-pressure reading, without diagnosis of hypertension Episodic Other circulatory disease (2 sources) Elevated blood-pressure reading without diagnosis of hypertension; Translations: [Elevated blood-pressure reading, without diagnosis of hypertension] 02-17-2025 Episodic Other connective tissue disease (4 sources) Calcific tendinitis of right shoulder; Translations: [Calcific tendinitis of right shoulder] 11-10-2024 Episodic Other connective tissue disease (3 sources) Calcific tendinitis of right shoulder; Translations: [Calcifying tendinitis of shoulder] 11-10-2024 Episodic Other lower respiratory disease (8 sources) Productive cough ; Translations: [Productive cough] 03-04-2024 Episodic Other lower respiratory disease (2 sources) Dyspnea; Translations: [Dyspnea, unspecified] 02-17-2025 Episodic Other nervous system disorders (5 sources) Chronic pain; Translations: [Other chronic pain] 11-08-2024 Chronic Other nervous system disorders (4 sources) Other chronic pain; Translations: [Other chronic pain] 11-08-2024 Chronic Other non-traumatic joint disorders (20 sources) Pain in right shoulder; Translations: [Right shoulder pain] Onset: 11-08-2024 09-30-2024 Episodic Other screening for suspected conditions (not mental disorders or infectious disease) (6 sources) Encounter for screening for malignant neoplasm of colon; Translations: [Special screening for malignant neoplasms of colon] Episodic Spondylosis; intervertebral disc disorders; other back problems (18 sources) Lumbar spondylosis; Translations: [Spondylosis without myelopathy or radiculopathy, lumbar region] Chronic Spondylosis; intervertebral disc disorders; other back problems (20 sources) Neck pain; Translations: [Cervicalgia] 09-30-2024 Episodic Unclassified (2 sources) Patient encounter status 03-19-2023 Viral infection (11 sources) Herpes simplex type 1 infection; Translations: [Herpesviral infection, unspecified] Episodic Results Test Name Value Interpretation Reference Range Facility X-ray reportOrdered By: Chico Hidalgo on 11-08-2024 Study report [facility] [address] [place] [address] XRay Report Signed Patient: Lamonte Moore MR#: [id number] : 1975 Acct:[id number] Age/Sex: 49 / M ADM Date: 5 Loc: [facility] Room: Type: [facility] Attending Dr: Russel Toro MD Copies to: Russel Toro MD~ Ordering Provider: Russel Toro MD Date of Service: 11/08/24 XR/XR shoulder RT min 2V*: M25.511 - Pain in right shoulder RIGHT SHOULDER - - 4 views CLINICAL HISTORY: Right shoulder pain for 3 months. COMPARISON: None FINDINGS: Mild degenerative changes of the AC and glenohumeral joints without evidence of calcific tendinitis. No acute bony process. XR/XR shoulder RT min 2V* IMPRESSION: MILD DEGENERATIVE CHANGES OF THE RIGHT SHOULDER WITH CALCIFIC TENDINITIS. NO ACUTE PROCESS IS SEEN. Impression dictated by: Demarcus Hidalgo Jr., D.O. 11/08/2024 9:00 PM Dictation Location: RADIO-PC-18 Transcribed By: CARA 11/08/242099 Dictated By: Demarcus Hidalgo Jr, DO 11/08/242058 Signed By: 11/08/24 2100 [facility] XR shoulder RT min 2V*on XR shoulder RT min 2V* [facility] [address] [place] [address] XRay Report Signed Patient: Lamonte Moore MR#: [id number] : 1975 Acct:[id number] Age/Sex: 49 / M ADM Date: 11/08/24 Loc: [facility] Room: Type: [facility] Attending Dr: Russel Toro MD Copies to: Russel Toro MD Ordering Provider: Russel Toro MD Date of Service: 11/08/24 XR/XR shoulder RT min 2V*: M25.511 - Pain in right shoulder RIGHT SHOULDER - - 4 views CLINICAL HISTORY: Right shoulder pain for 3 months. COMPARISON: None FINDINGS: Mild degenerative changes of the AC and glenohumeral joints without evidence of calcific tendinitis. No acute bony process. XR/XR shoulder RT min 2V* IMPRESSION: MILD DEGENERATIVE CHANGES OF THE RIGHT SHOULDER WITH CALCIFIC TENDINITIS. NO ACUTE PROCESS IS SEEN. Impression dictated by: Demarcus Hidalgo Jr., D.O. 11/08/2024 9:00 PM Dictation Location: RADIO-PC-18 Transcribed By: CARA 11/08/242099 Dictated By: Demarcus Hidalgo Jr, DO 11/08/242058 Signed By: 11/08/242099 Normal The Replaced By [facility] Basophils Auto (Bld) [#/Vol] on 09-30-2024 Basophils (Bld) [#/Vol] Automated basophil count 0.0-0.1 [facility] Basophils/100 WBC Auto (Bld) on 09-30-2024 Basophils/100 WBC (Bld) Automated basophil % 0.2-2.0 [facility] Cholesterol in LDL Calc [Mas s/Vol]on 09-30-2024 Cholesterol in LDL [Mass/Vol] Cholesterol in LDL [Mass/volume] in Serum or Plasma by calculation [facility] Comment on above: <100 mg/dl [id number] 0-129 mg/dl NEAR OR ABOVE [id number] mg/dl BORDERLINE FDSE113-546 mg/dl HIGH>190 mg/dl VERY HIGH Cholesterol in VLDL Calc [Ma ss/Vol]on 09-30-2024 Cholesterol in VLDL [Mass/Vol] Cholesterol in VLDL [Mass/volume] in Serum or Plasma by calculation [facility] Eosinophils/100 WBC Auto (Bl d)on 09-30-2024 Eosinophils/100 WBC (Bld) Automated eosinophil % 0.9-7.0 [facility] Erythrocyte distribution wid th Auto (RBC) [Ratio]on 09-30-2024 Erythrocyte distribution width (RBC) [Ratio] Erythrocyte distribution width [Ratio] by Automated count 11.0-15.0 [facility] Estimated glomerular filtrat ion rate (GFR) non- Americanon 09-30-2024 GFR/1.73 sq M.predicted among non-blacks MDRD (S/P/Bld) [Vol rate/Area] Estimated glomerular filtration rate (GFR) non- >=60 mL/min/1.73m 2 [facility] Globulin Calc (S) [Mass/Vol] on 09-30-2024 Globulin (S) [Mass/Vol] Serum globulin measurement by calculation (mass/volume) [facility] Hematocrit Auto (Bld) [Volum e fraction]on 09-30-2024 Hematocrit (Bld) [Volume fraction] Hematocrit [Volume Fraction] of Blood by Automated count 42.0-54.0 [facility] Hemoglobin [Mass/volume] in Bloodon 09-30-2024 Hemoglobin (Bld) [Mass/Vol] Hemoglobin [Mass/volume] in Blood 14.0-18.0 [facility] Laboratory - Chemistry and C hemistry - challengeon 09-30-2024 Albumin [Mass/Vol] 4.4 g/dL 3.4-5.0 [facility] ALP [Catalytic activity/Vol] 81 U/L 46-116 [facility] ALT [Catalytic activity/Vol] 29 U/L 16-63 [facility] AST [Catalytic activity/Vol] 17 U/L 15-37 [facility] Bilirubin [Mass/Vol] 0.9 mg/dL 0.2-1.0 [facility] Calcium [Mass/Vol] 9.3 mg/dL 8.5-10.1 [facility] Chloride [Moles/Vol] 104 mmol/L 98-107 [facility] Cholesterol [Mass/Vol] 177 mg/dL <=200 [facility] Cholesterol in HDL [Mass/Vol] 65 mg/dL High 40-60 [facility] Comment on above: > or =60 mg/dl - LOW CARDIOVASCULAR RISK<40 mg/dl - HIGH CARDIOVASCULAR RISK CO2 [Moles/Vol] 29.2 mmol/L 21.0-32.0 [facility] Creatinine [Mass/Vol] 1.00 mg/dL 0.70-1.30 [facility] GFR/1.73 sq M.predicted MDRD (S/P/Bld) [Vol rate/Area] mL/min/{1.73_m2} >=60 mL/min/1.73m 2 [facility] Glucose [Mass/Vol] 90 mg/dL 74-106 [facility] Potassium [Moles/Vol] 4.3 mmol/L 3.5-5.1 [facility] Protein [Mass/Vol] 7.9 g/dL 6.4-8.2 [facility] Sodium [Moles/Vol] 142 mmol/L 136-145 [facility] Triglyceride [Mass/Vol] 54 mg/dL <=150 [facility] Urea nitrogen [Mass/Vol] 16.0 mg/dL 7.0-18.0 [facility] Urea nitrogen/Creatinine [Mass ratio] 16.0 mg/mg [facility] Laboratory - Hematology and Cell countson 09-30-2024 Immature granulocytes/100 WBC (Bld) 0.3 % 0.0-0.5 [facility] Leukocytes [#/volume] correc ana for nucleated erythrocytes in Blood by Automated counon 09-30-2024 WBC corrected for nucl RBC Auto (Bld) [#/Vol] Leukocytes [#/volume] corrected for nucleated erythrocytes in Blood by Automated coun 4.0-11.0 [facility] Lymphocytes Auto (Bld) [#/Vo l]on 09-30-2024 Lymphocytes (Bld) [#/Vol] Lymphocytes [#/volume] in Blood by Automated count 1.2-3.8 [facility] Lymphocytes/100 WBC Auto (Bl d)on 09-30-2024 Lymphocytes/100 WBC (Bld) Lymphocytes/100 leukocytes in Blood by Automated count 20.5-60.0 [facility] MCH Auto (RBC) [Entitic mass ]on 09-30-2024 MCH (RBC) [Entitic mass] MCH [Entitic mass] by Automated count 25.9-34.0 [facility] MCHC Auto (RBC) [Mass/Vol]on 09-30-2024 MCHC (RBC) [Mass/Vol] MCHC [Mass/volume] by Automated count High 29.9-35.2 [facility] MCV Auto (RBC) [Entitic vol] on 09-30-2024 MCV (RBC) [Entitic vol] MCV [Entitic volume] by Automated count 80.0-94.0 [facility] Monocytes Auto (Bld) [#/Vol] on 09-30-2024 Monocytes (Bld) [#/Vol] Automated blood monocyte count 0.3-0.8 [facility] Monocytes/100 WBC Auto (Bld) on 09-30-2024 Monocytes/100 WBC (Bld) Automated monocyte % 1.7-12.0 [facility] Neutrophils Auto (Bld) [#/Vo l]on 09-30-2024 Neutrophils (Bld) [#/Vol] Neutrophils [#/volume] in Blood by Automated count 1.4-6.5 [facility] Neutrophils/100 WBC Auto (Bl d)on 09-30-2024 Neutrophils/100 WBC (Bld) Automated neutrophil % 43.0-75.0 [facility] No Panel Informationon 09-30 Eosinophils # (Auto) 0.4 10 3/uL 0.0-0.7 [facility] Immature Granulocyte # (Auto) 0.03 10 3/uL 0.00-0.03 [facility] Platelet mean volume Auto (B ld) [Entitic vol]on 09-30-2024 Platelet mean volume (Bld) [Entitic vol] Platelet mean volume [Entitic volume] in Blood by Automated count 9.5-13.5 [facility] Platelets Auto (Bld) [#/Vol] on 09-30-2024 Platelets (Bld) [#/Vol] Platelets [#/volume] in Blood by Automated count 150-450 [facility] RBC Auto (Bld) [#/Vol]on RBC (Bld) [#/Vol] Erythrocytes [#/volume] in Blood by Automated count 4.70-6.10 [facility] Serum or plasma albumin/glob ulin mass ratioon 09-30-2024 Albumin/Globulin [Mass ratio] Serum or plasma albumin/globulin mass ratio [facility] Serum or plasma anion gap de terminationon 09-30-2024 Anion gap [Moles/Vol] Serum or plasma anion gap determination [facility] Serum or plasma total choles terol/high density lipoprotein (HDL) cholesterol mass marie 09-30-2024 Cholesterol.total/Cho lesterol in HDL [Mass ratio] Serum or plasma total cholesterol/high density lipoprotein (HDL) cholesterol mass rat [facility] Comment on above: 3.3 - 4.4 LOW RISK4. 4 - 7.1 AVERAGE RISK7.1 - 11.0 MODERATE RISK>11.0 HIGH RISK Semen Analysis PostVason Deana/Transport Prob No Problems Normal Fish [facility] Comment on above: Performed By: #### 2 [id number], [id number] ####[facility] [address] [place] [address] Collect. Meth Masturbation Normal [facility] Comment on above: Performed By: #### 2 [id number], [id number] ####[facility] [address] [place] [id number] Days Abstained Invalid Interpretation Code 2-5 [facility] Comment on above: Performed By: #### 2 [id number], [id number] ####[facility] [address] [place] [address] Post Vas Screen No Sperm Seen Normal <=0 [facility] Comment on above: Result Comment: A Co ncentration Technique is used to confirm any semen which is azospermic (no sperm seen). Performed By: #### 2 [id number], [id number] ####[facility] [address] [place] [address] Spec. Container Steril Container Normal [facility] Comment on above: Performed By: #### 2 [id number], [id number] ####[address] [place] [address] Spec. Temp 22 DegC Normal 20-37 [facility] Comment on above: Performed By: #### 2 [id number], [id number] ####[address] [address] Sperm Morphon 09-01-2023 Sperm Morph No sperm identified (A concentration technique is used to evaluate this specimen). ICD10 Z30.9 Invalid Interpretation Code [facility] Comment on above: Other Comment: Order Added by Discern Expert. Sperm Morph No sperm identified (A concentration technique is used to evaluate this specimen). Invalid Interpretation Code [facility] Comment on above: Order Comment: Order Added by Discern Expert. Performed By: #### 2 [id number], [id number] ####[address] [address] Semen Analysis PostVason Deana/Transport Prob No Problems Normal Fish [facility] Comment on above: Performed By: #### 2 [id number], [id number] ####[address] [place] [address] Collect. Meth Masturbation Normal [facility] Comment on above: Performed By: #### 2 [id number], [id number] ####[address] [place] [address] Days Abstained 1 day(s) Low 2-5 [facility] Comment on above: Performed By: #### 2 [id number], [id number] ####[address] [address] Post Vas Screen Present Normal <=0 [facility] Comment on above: Result Comment: Rare Non-Motile Sperm Seen A Concentration Technique is used to confirm any semen which is azospermic (no sperm seen). Performed By: #### 2 [id number], [id number] ####[facility] [address] [place] [address] Spec. Container Steril Container Normal [facility] Comment on above: Performed By: #### 2 [id number], [id number] ####[facility] [address] [place] [address] Spec. Temp 23 DegC Normal 20-37 [facility] Comment on above: Performed By: #### 2 [id number], [id number] ####[facility] [address] [place] [address] Sperm Morphon 06-03-2023 Sperm Morph Rare unremarkable sperms present (concentration technique performed). Invalid Interpretation Code [facility] Comment on above: Other Comment: Order Added by Discern Expert. Order Comment: Order Added by Discern Expert. Performed By: #### 2 [id number], [id number] ####[facility] [address] [place] [address] Ambulatory Visit Summaryon 1 07-20-2022 Ambulatory Visit [...] Schedule the Following Appointments Follow Up with Kory RAE MD, URL When: Where: [facility] [address] [place] [address]- You Need to Complete the Following Semen [...] hours. Spermi (more content not included)... Normal [facility] Patient Educationon 05-20-20 23 Patient Education Obstetrics and Gynecology Contraception Choices [...] man ca (more content not included)... Normal [facility] Urology Office/Clinic Noteon 05-20-2023 Urology Office/Clinic Note Chief Complaint PO Vasectomy [facility] Staff 48 yo male here for PO [...] to pt. Two semen analyses ordered for [facility]. Follow-up With When Contact Information BUTCH OROZCO, Kory Nixon, URL [facility] [address], [place] [address]- Additional Instructions: PRN Patient Education Contraception Choices I, Nery Huerta, personally scribed for Dr. Rae [...] Tobacco Use:. Never Smokeless Tobacco Use:., 05/20/2023 [facility] Comment on above: Result Comment: Elec tronically Signed By: Kory RAE MD\.br\Date and Time Signed: 05/20/23 10:28 EST\.br\Electronically Co-Signed By: Nery Huerta\.br\Date and Time Co-Signed: 05/20/23 10:27 EST Consent for Procedure/Surger yon 04-28-2023 Consent for Procedure/Surgery [id number] 0#1.00TIFF [facility] Consent for Treatmenton 04-06 Consent for Treatment [id number] #1.00TIFF [facility] IntraOperative Documentson 1 IntraOperative Documents [id number] 2#1.00TIFF [facility] Main OR Intraoperative Recor don 04-28-2023 Main OR Intraoperative Record IntraOp Document Type FTURO Summary Primary Physician: Kory RAE MD Finalized Date/Time: 04/28/23 09:52:52 Pt. Name: LAMONTE MOORE.O.B./Sex: 1975 Male Med Rec #: [id number] Physician: Kory RAE MD Financial #: [id number] Pt. Type: O Room/Bed: / Admit/Disch: 04/28/23 08:13:18 - Institution: Case Times FTURO Entry 1 Patient Times In Room 04/28/23 09:07:00 Out Room 04/28/23 09:51:00 Procedure Times Start 04/28/23 09:10:00 Stop 04/28/23 09:45:00 Anesthesia Times Last Modified By: Jenny LEIJA, JORDIOR, Kandi 04/28/23 09:46:48 Case Attendance FTURO Entry 1 Entry 2 Entry 3 Case Attendee BUTCH OROZCO, Kory Alvarado RN, CNOR, [employer] Role Performed Surgeon - Primary Table Games Floor Supervisor - Primary Scrub - Primary Time In 04/28/23 09:07:00 04/28/23 09:07:00 04/28/23 09:07:00 Time Out 04/28/23 09:51:00 04/28/23 09:51:00 04/28/23 09:51:00 Procedure VASECTOMY LOCAL(.) VASECTOMY LOCAL(.) VASECTOMY LOCAL(.) Comments Last Modified By: Jenny RN, CNOR, Jenny RN, CNOR, Jenny LEIJA, JORDIOR, Kandi 04/28/23 Kandi 04/28/23 Kandi 04/28/23 [...] Modified By: JAXSON Alvarado RN, Ruthann 04/28/23 09:17:21 Post-Care Text: The patient is [...] Position Verified Availability Equipment, Medication Time Out BUTCH OROZCO, Kory Nixon, Verified (If Participants JAXSON Alvarado RN, Applicable) Valeria Chau Adam A Time Out [...] JAXSON Alvarado RN, Ruthann 04/28/23 09:52 Normal [facility] Main OR Preoperative Recordo n 04-28-2023 Main OR Preoperative Record Holding Area Document Type FTURO Summary Primary Physician: Kory RAE MD Finalized Date/Time: 04/28/23 09:16:17 Pt. Name: LAMONTE MOORE /Sex: 1975 Male Med Rec #: [id number] Physician: Kory RAE MD Financial #: [id number] Pt. Type: O Room/Bed: / Admit/Disch: 04/28/23 [...] Complaints of Pain: No Skin Integrity Dry, [place], Warm Vitals - EU Blood Pressure 143/88 Pulse 62 bpm Respirations 14 br/min SPO2 99 % Additional None RN Reviewed Yes Specimens Collected Last Modified By: JAXSON Alvarado RN, Ruthann 04/28/23 09:16:15 General Comments: 97.9 Finalized By: JAXSON Alvarado RN, Ruthann Document Signatures Signed By: Lea Menezes RN 04/28/23 08:36 JAXSON Alvarado RN, Ruthann 04/28/23 09:16 Normal [facility] Operative Reporton Operative Report Patient: LAMONTE [...] well and no complications were noted. Normal [facility] Comment on above: Result Comment: Elec tronically Signed By: Kory RAE MD\.br\Date and Time Signed: 04/28/23 09:50 EDT Patient [...] 1 to 2 weeks after your procedure. [facility] Insurance Correspondenceon 1 Insurance Correspondence [id number] #[id number] [facility] Provider Letteron 03-23-2023 Provider Letter March 23, 2023 LAMONTE MOORE [address] [place] [id number] : 1975 To Whom It May Concern, Please excuse above patient from work. Date of Illness: From: 04/28/2023 To: 04/29/2023 May Return to Work On:05/02/2023 Restrictions: No work 04/28/2023- 05/01/2023 Comments: Patient is having surgical procedure on 04/28/2023. Sincerely, [facility], , option #3 Normal [facility] Urology Office/Clinic Noteon 03-23-2023 Urology Office/Clinic [...] for 1 week after procedure -Will need dedicated truck driver for Valium -Shave site the night prior -50% of usual activity the day after -Will send script for Keflex 500mg BID x10 days, Roosevelt 325mg-5mg, and Valium 10mg to pharm on file. Discussed the medication side effects, and the patient will monitor closely for these, as well as for symptom improvement. If severe side effects occur, the medication should be stopped and the office notified. Follow-up With When Contact Information BUTCH OROZCO, Kory Nixon, URL [facility] [address], [place] [address]- [phone] Additional Instructions: Sched Vasectomy Patient Education Vasectomy [...] 03/23/2023 Lab (more content not included)... Normal [facility] Comment on above: Result Comment: Elec [...] by: JEREMIAS TAY Date: 2020-12-06 13:24 Normal [facility] Vital Signs Date Time Vital Sign Value Performing Clinician Facility 02-17-2025 09:02-040 Body height 190.5 cm Henrique Ball DO Work Phone: [facility] 02-17-2025 09:02-0400 Body mass index (BMI) [Ratio] 29 kg/m2 Henrique Ball DO Work Phone: [facility] 02-17-2025 09:02-0400 Body weight 105.34 kg Henrique Ball DO Work Phone: [facility] 02-17-2025 09:02-0400 Diastolic blood pressure 114 mm[Hg] Henrique Ball DO Work Phone: [facility] 02-17-2025 09:02-0400 Heart rate 73 /min Henrique Ball DO Work Phone: [facility] 02-17-2025 09:02-0400 Respiratory rate 12 /min Henrique Ball DO Work Phone: [facility] 02-17-2025 09:02-0400 Systolic blood pressure 165 mm[Hg] Henrique Ball DO Work Phone: [facility] 12-15-2024 08:00-0400 Body height 190.5 cm Henrique Ball DO Work Phone: [facility] 11-10-2024 08:29-0400 Body height 190.5 cm Henrique Ball DO Work Phone: [facility] 11-10-2024 08:29-0400 Body mass index (BMI) [Ratio] 25.9 kg/m2 Henrique Ball DO Work Phone: [facility] 11-10-2024 08:29-0400 Body weight 93.89 kg Henrique Ball DO Work Phone: [facility] 09-30-2024 10:15-0400 Body height 190.5 cm [facility] 09-30-2024 10:15-0400 Body mass index (BMI) [Ratio] 26.9 kg/m2 [facility] 09-30-2024 10:15-0400 Body weight 97.74 kg [facility] 09-30-2024 10:15-0400 Diastolic blood pressure 86 mm[Hg] [facility] 09-30-2024 10:15-0400 Heart rate 66 /min [facility] 09-30-2024 10:15-0400 Respiratory rate 12 /min [facility] 09-30-2024 10:15-0400 Systolic blood pressure 130 mm[Hg] [facility] 05-20-2023 14:00-0500 Body height 190.5 cm Henrique Ball Other [employer] Other 05-20-2023 14:00-0500 Body mass index (BMI) [Ratio] 25.37 kg/m2 Henrique Ball Other [facility] [employer] Other 05-20-2023 14:00-0500 Body weight 92.08 kg Henrique Ball Other [facility] [employer] Other 05-20-2023 14:00-0500 Diastolic blood pressure 92 mm[Hg] Henrique Ball Other [facility] [employer] Other 05-20-2023 14:00-0500 Respiratory rate 12 /min Henrique Ball Other [facility] [employer] Other 05-20-2023 14:00-0500 Systolic blood pressure 138 mm[Hg] Henrique Ball Other [facility] [employer] Other 05-20-2023 09:28-0500 Blood Pressure Location Kory RAE [facility] 05-20-2023 09:28-0500 Diastolic blood pressure 90 mm[Hg] Kory RAE [facility] 05-20-2023 09:28-0500 Heart rate 64 /min Kory RAE [facility] 05-20-2023 09:28-0500 Systolic blood pressure 123 mm[Hg] Kory RAE [facility] 03-23-2023 12:17-0400 Blood Pressure Location Kory RAE [facility] 03-23-2023 12:17-0400 Diastolic blood pressure 86 mm[Hg] Kory RAE [facility] 03-23-2023 12:17-0400 Heart rate 72 /min Kory RAE [facility] 03-23-2023 12:17-0400 Respiratory rate 16 /min Kory RAE [facility] 03-23-2023 12:17-0400 Systolic blood pressure 135 mm[Hg] Kory RAE [facility] 12-04-2022 09:30-0400 Body height 190.5 cm Henrique Ball Other [facility] [employer] Other 12-04-2022 09:30-0400 Body mass index (BMI) [Ratio] 25 kg/m2 Henrique Ball Other [facility] [employer] Other 12-04-2022 09:30-0400 Body weight 90.72 kg Henrique Ball Other [facility] [employer] Other 12-04-2022 09:30-0400 Diastolic blood pressure 82 mm[Hg] Henrique Ball Other [place] [facility] Other 12-04-2022 09:30-0400 Respiratory rate 12 /min Henrique Ball Other [place] [facility] Other 12-04-2022 09:30-0400 Systolic blood pressure 139 mm[Hg] Henrique Ball Other [employer] Other 07-25-2022 11:30-0500 Body height 190.5 cm Henrique Ball Other [employer] Other 07-25-2022 11:30-0500 Body mass index (BMI) [Ratio] 26.85 kg/m2 Henrique Ball Other [employer] Other 07-25-2022 11:30-0500 Body weight 97.43 kg Henrique Ball Other [employer] Other 07-25-2022 11:30-0500 Diastolic blood pressure 90 mm[Hg] Henrique Ball Other [employer] Other 07-25-2022 11:30-0500 Respiratory rate 12 /min Henrique Ball Other [employer] Other 07-25-2022 11:30-0500 Systolic blood pressure 126 mm[Hg] Henrique Ball Other [employer] Other 07-25-2022 09:30-0500 Body height 190.5 cm Henrique Ball Other [employer] Other 07-25-2022 09:30-0500 Body mass index (BMI) [Ratio] 26.85 kg/m2 Henrique Ball Other [employer] Other 07-25-2022 09:30-0500 Body weight 97.43 kg Henrique Ball Other [employer] Other 07-25-2022 09:30-0500 Diastolic blood pressure 90 mm[Hg] Henrique Ball Other [employer] Other 07-25-2022 09:30-0500 Respiratory rate 12 /min Henrique Ball Other [employer] Other 07-25-2022 09:30-0500 Systolic blood pressure 126 mm[Hg] Henrique Ball Other [employer] Other Encounters Encounter Date Encounter Type Care Provider Facility Start: 02-17-2025 End: 02-17-2025 ambulatory Henrique Ball DO Work Phone: [facility] Work Phone: Start: 02-17-2025 End: 02-17-2025 Patient encounter procedure Henrique Ball DO -[facility] Work Phone: Start: 12-15-2024 End: 12-15-2024 ambulatory Henrique Ball DO Work Phone: [facility] Work Phone: Start: 12-15-2024 End: 12-15-2024 Patient encounter procedure Henrique Ball DO Work Phone: Replaced By [facility] Physician [facility] Work Phone: Start: 11-10-2024 End: 11-10-2024 ambulatory Henrique Ball DO Work Phone: [facility] Work Phone: Start: 11-10-2024 End: 11-10-2024 Patient encounter procedure Henrique Ball DO Work Phone: Replaced By [facility] Physician [facility] Work Phone: Start: 11-08-2024 End: 11-08-2024 ambulatory Henrique Ball DO Work Phone: [facility] Work Phone: Start: 11-08-2024 End: 11-08-2024 Patient encounter procedure Henrique Ball DO Work Phone: Replaced By [facility] Physician [facility] Work Phone: Start: 09-30-2024 End: 09-30-2024 ambulatory [facility] Work Phone: Start: 09-30-2024 End: 09-30-2024 Encounter for general adult medical examination without abnormal findings [facility] Start: 09-30-2024 End: 09-30-2024 Patient encounter procedure Replaced By [facility] Physician [facility] Work Phone: Start: 09-27-2024 Patient encounter status [facility] Start: 03-04-2024 End: 03-04-2024 ambulatory [facility] Work Phone: Start: 03-04-2024 End: 03-04-2024 Patient encounter procedure Replaced By [facility] Physician [facility] Work Phone: Start: 02-01-2024 End: 02-01-2024 ambulatory [facility] Work Phone: Start: 02-01-2024 End: 02-01-2024 Patient encounter procedure Replaced By [facility] Physician [facility] Work Phone: Start: 11-16-2023 Non-patient / Non-visit Replaced By [facility] Physician [facility] Work Phone: Start: 08-27-2023 End: 08-28-2023 ambulatory Kory RAE Facility:[facility] Start: 08-27-2023 End: 08-27-2023 Lab Drop off Kory RAE [facility] Start: 07-20-2023 End: 07-20-2023 ambulatory Henrique Mckeon Other [employer] Other Start: 07-20-2023 Telephone encounter Henrique Mckeon [facility] Start: 07-15-2023 End: 07-15-2023 ambulatory Henrique Mckeon Other [employer] Other Start: 07-15-2023 Telephone encounter Henrique Mckeon FP [facility] Start: 05-26-2023 End: 05-27-2023 ambulatory Kory RAE Facility:[facility] Start: 05-26-2023 End: 05-26-2023 Lab Drop off Kory RAE [facility] Start: 05-20-2023 Office outpatient vi sit 15 minutes Henrique Mckeon [facility] Start: 05-20-2023 End: 05-21-2023 ambulatory Kory RAE [facility] [employer] Other Start: 05-20-2023 End: 05-20-2023 Patient encounter procedure Kory RAE [facility] Start: 05-15-2023 ambulatory Kory RAE Facili ty:[facility] Start: 04-28-2023 End: 04-29-2023 ambulatory Kory RAE Facility:[facility] Start: 04-28-2023 End: 04-28-2023 Patient encounter procedure Kory RAE [facility] Start: 03-23-2023 ambulatory Kory RAE Facility :[facility] Start: 03-23-2023 End: 03-24-2023 ambulatory Kory RAE Facility:[facility] Start: 03-23-2023 End: 03-23-2023 Patient encounter procedure Kory RAE [facility] Start: 12-09-2022 End: 12-09-2022 ambulatory Henrique Mckeon Other [employer] Other Start: 12-09-2022 Telephone encounter Henrique Mckeon [facility] Start: 12-05-2022 End: 12-05-2022 ambulatory Henrique Mckeon Other [employer] Other Start: 12-05-2022 Telephone encounter Henrique Mckeon [facility] Start: 12-04-2022 End: 12-04-2022 ambulatory Henrique Mckeon Other [employer] Other Start: 12-04-2022 Office outpatient vi sit 15 minutes Henrique Mckeon [facility] Start: 07-25-2022 End: 07-25-2022 ambulatory Henrique Mckeon Other [employer] Other Start: 07-25-2022 Encounter for genera l adult medical examination without abnormal findings Henrique Mckeon [facility] Start: 07-25-2022 Periodic preventive med est patient 40-64yrs Henrique Mike [facility] Start: 07-21-2022 Annual wellness visit Henrique Mckeon Other [place] [facility] Other Start: 12-06-2020 End: 12-07-[address] HENRIQUE MCKEON Facility:[facility] Start: 09-24-2020 End: 02-07-2021 ambulatory NONE LISTED REQUEST Facility:[facility] Procedures Date Procedure Procedure Detail Performing Clinician Start: 11-08-2024 Plain X-ray of right shoulder Henrique Mckeon DO Work Phone: Start: 05-20-2023 H/O: vasectomy Kory R RAE Start: 04-28-2023 Vasectomy Kory DE TERS Procedure on back Kory WA TERS Procedure on femur Kory W ATERS Plan of Treatment Date Care Activity Detail Author Start: 02-17-2025 [facility] Start: 11-08-2024 Plain X-ray of right shoulder XR shoulder RT min 2V* [facility] Start: 11-08-2024 XR Shoulder - right Views [facility] Start: 11-08-2024 Patient referral [facility] Work Phone: Comprehensive metabo lic 2000 panel - Serum or Plasma [facility] Patient referral [facility] Work Phone: US Heart Transthoracic [facility] XR Cervical spine Vi ews W flexion and W extension [facility] XR Chest 2 Views [facility] XR Shoulder - right Views [facility] Immunizations Immunization Date Immunization Notes Care Provider Fa leatha 06-26-2021 COVID-19 Vaccine Pfi zer - Documentation Purposes Only Henrique Mckeon Other [facility] 10-16-2020 COVID-19 Vaccine Pfi zer - Documentation Purposes Only Henrique Mckeon Other [facility] 09-24-2020 COVID-19 Vaccine Pfi zer - Documentation Purposes Only Henrique Mckeon Other [facility] Payers Date Payer Category Payer Self-pay 1975 Unknown [id number] [id number] [id number] 1975 Unknown [id number] 2.16.8 [id number] 1975 Unknown [id number] 2.16.8 [id number] 1975 Unknown [id number] 2.16.8 [id number] 1975 Unknown [id number] 2.16.8 [id number] 1975 Unknown [id number] 2.16.8 [id number] 1975 Unknown [id number] 2.16.8 [id number] 1957 Private Health Insurance [id number] 1957 Self-pay [id number] Unknown [id number] 2.16.84 [id number] Unknown [id number] 2.16.8 [id number] Social History Date Type Detail Facility Unknown if ever smoked [employer] Other Sex Assigned At [facility] Tobacco smoking status No Smokin g Status Entered [facility] Start: 05-20-2023 End: 10-28-2024 Tobacco smoking status Never smoked tobacco (finding) [facility] Tobacco smoking status Never [facility] Start: 1975 Sex Assigned At Male F [facility] Start: 09-30-2024 End: 12-15-2024 Sex Male (finding) [facility] Functional Status Date Assessment Result Facility 05-20-2023 Functional Status N/A [facility] 03-23-2023 Functional Status N/A [facility] Clinical Notes 07-25-2022 to 12-15-2024 Note Date & Type Note Facility 12-15-2024 Evaluation note Diagnosis Onset Date Resolution Calcific tendinitis of right shoulder acute December 15, 2024 7:51am Shoulder pain, right acute December 15, 2024 7:51am Atrial fibrillation acute Augus t 2024 8:34am Dyspnea acute February 17, 2 025 8:34am Elevated BP without diagnosis of hypertension acute February 17 8:34am [facility] Work Phone: 1(464) 710-857803-28-2025 Evaluation note* Diagnosis Onset Date Resolution Status Admit Date Neck pain acute September 30 9:54am Shoulder pain, right acute Noe h 2024 9:54am Wellness examination acute Noe h 2024 9:54am Screening for colon cancer noneactiv e September 30, 2024 9:54am Cervical spondylosis with radiculopathy acute November 08, 2024 3: 55pm Chronic pain acute November 08 3:55pm Shoulder pain, right acute November 08, 2024 3:55pm [facility] Work Phone: 1(296) 398-724003-28-2025 Evaluation note* Diagnosis Onset Date Resolution Status Admit Date Neck pain acute September 30 9:54am Shoulder pain, right acute Noe h 2024 9:54am Wellness examination acute Noe h 2024 9:54am Screening for colon cancer noneactiv e September 30, 2024 9:54am Cervical spondylosis with radiculopathy acute November 08, 2024 3: 55pm Chronic pain acute November 08 3:55pm Shoulder pain, right acute November 08, 2024 3:55pm Calcific tendinitis of right shoulder acute November 10, 2024 8: 17am Shoulder pain, right acute November 10, 2024 8:17am [facility] Work Phone: 1(521) 529-454803-28-2025 Evaluation note* Diagnosis Onset Date Resolution Status Admit Date Neck pain acute September 30 9:54am Shoulder pain, right acute Noe h 2024 9:54am Wellness examination acute Noe h 2024 9:54am Screening for colon cancer noneactiv e September 30, 2024 9:54am Cervical spondylosis with radiculopathy acute November 08, 2024 3: 55pm Chronic pain acute November 08 3:55pm Shoulder pain, right acute November 08, 2024 3:55pm Calcific tendinitis of right shoulder acute November 10, 2024 8: 17am Shoulder pain, right acute November 10, 2024 8:17am Calcific tendinitis of right shoulder acute December 15, 2024 7:51am Shoulder pain, right acute December 15, 2024 7:51am [facility] Work Phone: 1(933) 792-597702-22-2024 Evaluation + Plan note Diagnostic Tests Pending * Semen Analysis Post Vasectomy 08/27/23 * Sperm Morphology 08/27/23 [facility]01-10-2024 Evaluation note* Encounter Date Diagnosis Assessment Notes Treatment Notes Treatment Clinical Notes Jul, Situational anxiety (ICD-10 - F41.8) [facility] [facility] Other 11-21-2023 Evaluation + Plan note Diagnostic Tests Pending * Semen Analysis Post Vasectomy 05/26/23 * Sperm Morphology 05/26/23 [facility]11-15-2023 Evaluation + Plan note Diagnostic Tests Pending * Semen Analysis Post Vasectomy 05/20/23 * Semen Analysis Post Vasectomy 05/20/23 Future Scheduled Tests Laboratory* Semen Analysis Post Vasectomy 05/20/23 * Semen Analysis Post Vasectomy 05/20/23 [facility] 11-15-2023 Evaluation note* Encounter Date Diagnosis Assessment [...] landing. Read, listen to music, deep/slow breathing [employer] Other 11-15-2023 Hospital Discharge instructions Patient Education [...] provider. Document Revised: 11/26/2020 Document Reviewed: 11/26/2020 [employer] Patient Education 2022 REMOTV. Follow Up Care 05/06/2023 09:52:46 With:BUTCH OROZCO, Kory Nixon, URL Address: [facility] [address], [place] [address]- When: Unknown [facility] 10-24-2023 Note [id number] Discharge instructions Patient Education 04/28/2023 [...] With:Kory RAE Address: [facility] [address] [place] [address] Business (1) When:05/12/2023 09:47:09 [facility]09-18-2023 NoteUrology Vasectomy Vasectomy is a procedure in [...] including vitamins, herbs, eye drops, creams, and vwmn-aej-gsfgwmt medicines. ? Any problems you or family [...] tells you to take them. ? Taking yxhe-mhw-ixapoxv medicines, vitamins, herbs, and supplements. ? You [...] being released during ej (more content not included)...[facility]09-18-2023 Hospital Discharge instructions Patient Education 03/23/2023 [...] including vitamins, herbs, eye drops, creams, and dsbv-aey-exidrsp medicines. Any problems you or family members [...] provider tells you to take them. ?Taking lpce-pss-nedzaxw medicines, vitamins, herbs, and supplements. You may [...] provider. Document Revised: 11/08/2020 Document Reviewed: 11/08/2020 [employer] Patient Education 2022 REMOTV. Follow Up Care 12/30/2022 13:05:02 With:BUTCH OROZCO, Kory Nixon, URL Address: [facility] [address] , [place] [address]- [phone] When: Unknown Comments:Sched Vasectomy [facility] 06-06-2023 Evaluation note* Encounter Date Diagnosis Assessment Notes Treatment Notes Treatment Clinical Notes Dec, Recurrent oral herpes simplex (ICD-10 - B00.2) [employer] Other 06-02-2023 Evaluation note* Encounter Date Diagnosis Assessment Notes Treatment Notes Treatment Clinical Notes Dec, Colon cancer screening (ICD-10 - Z12.11) [facility] Other 06-01-2023 Evaluation note* Encounter Date Diagnosis [...] take extra dose for prodrome of tingling/burning [employer] [facility] [employer] Other 01-20-2023 Evaluation note* Encounter Date Diagnosis [...] office to have BP checked any time [employer] Other Evaluation + Plan note Future Appointments Appointment Date:04/22/2023 09:00:00 AM Scheduled Provider: Location:[facility] Appointment Type:Urology CALL PAT FT Appointment Date:04/28/2023 09:00:00 AM Scheduled Provider: Location:[facility] Appointment Type:Urology FT Appointment Date:05/15/2023 11:00:00 AM Scheduled Provider:Kory RAE MD Location:[facility] Appointment Type:URO Office Visit [facility] evaluation + Plan note Future Appointments Appointment Date:05/15/2023 11:00:00 AM Scheduled Provider:Kory RAE MD Location:[facility] Appointment Type:[facility] [employer] Other Evaluation noteNo assessment information available [facility] Work Phone: Evaluation note* Diagnosis Onset Date Resolution Status Acute bronchitis due to other specified organisms acute Productive cough acute [facility] Work Phone: Evaluation note* Diagnosis Onset Date Resolution Status Admit Date Neck pain acute September 30 9:54am Shoulder pain, right acute Noe h 2024 9:54am Wellness examination acute Noe h 2024 9:54am Screening for colon cancer noneactiv e September 30, 2024 9:54am [facility] Work Phone: History general Narrative - Reported* Type Description Date Medical History CARLIN (generalized anxiety disorde r) Medical History Wellness examination Medical History Herpesviral vesicular dermatitis Medical History Lumbar spondylosis Medical History 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 Surgical History back surgery Surgical History femur shattered Surgical History LUMBAR DISECTOMY 03/2000 Surgical History ORIF RIGHT FEMUR 2004 Hospitalization History see above [employer] Other History general Narrative - Reported* Type Description Date Medical History CARLIN (generalized anxiety disorde r) Medical History Wellness examination Medical History Herpesviral vesicular dermatitis Medical History Lumbar spondylosis Medical History 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 Medical History [employer] Surgical History back surgery Surgical History femur shattered Surgical History LUMBAR DISECTOMY 03/2000 Surgical History ORIF RIGHT FEMUR 2004 Hospitalization History see above [employer] Other Hospital course Narrative No data available for this section [facility] Hospital Discharge instructions No data available for this section [facility] data available for this section [facility] reason for referral (narrative)No reason for referral information availableA[facility] Work Phone: Summary Purpose Family History Relationship Condition Age at Onset Recorded Date/T catherine father Arthritis Unknown Hypertension Unknown Advance Directives Advance Directive Response Recorded Date/ Time Advance Directives No November 15 10:56am Advance Directive Response Recorded Date/ Time Advance Directives No October 28 11:44am Chief Complaint and Reason for Visit Chief [...] 9: 54am Screening for colon cancer September 30 9:54am Chief Complaint Admit Date poss herniated disc in neck September 30, 2024 9:54am Cervicalgia-spinal stenosis November 08 3:55pm M25.511 - Pain in right shoulder November 4:11pm Reason for Visit Admit Date Neck pain September 30, 2024 9:5 4am Shoulder pain, right September 30, 2024 9: 54am Wellness examination September 30, 2024 9: 54am Screening for colon cancer September 30 9:54am Cervical spondylosis with radiculopathy November 08, 2024 3:55pm Chronic pain November 08, 2024 3:55pm Shoulder pain, right November 08, 2024 3:55p m Chief Complaint Admit Date poss herniated disc in neck September 30, 2024 9:54am Cervicalgia-spinal stenosis November 08 3:55pm M25.511 - Pain in right shoulder November 4:11pm CONSULT DR TORO RT SHOULDER PAIN November 102024 8:17am Reason for Visit Admit Date Neck pain September 30, 2024 9:5 4am Shoulder pain, right September 30, 2024 9: 54am Wellness examination September 30, 2024 9: 54am Screening for colon cancer September 30 9:54am Cervical spondylosis with radiculopathy November 08, 2024 3:55pm Chronic pain November 08, 2024 3:55pm Shoulder pain, right November 08, 2024 3:55p m Calcific tendinitis of right shoulder Ma y 2024 8:17am Shoulder pain, right November 10, 2024 8:17a m Chief Complaint Admit Date poss herniated disc in neck September 30, 2024 9:54am Cervicalgia-spinal stenosis November 08 3:55pm M25.511 - Pain in right shoulder November 4:11pm CONSULT DR TORO RT SHOULDER PAIN November 102024 8:17am 4-5 WEEKS December 15, 2024 7:51 am Reason for Visit Admit Date Neck pain September 30, 2024 9:5 4am Shoulder pain, right September 30, 2024 9: 54am Wellness examination September 30, 2024 9: 54am Screening for colon cancer September 30, 025 9:54am Cervical spondylosis with radiculopathy November 08, 2024 3:55pm Chronic pain November 08, 2024 3:55pm Shoulder pain, right November 08, 2024 3:55p m Calcific tendinitis of right shoulder Ma y 2024 8:17am Shoulder pain, right November 10, 2024 8:17a m Calcific tendinitis of right shoulder ne 2024 7:51am Shoulder pain, right December 15, 2024 7:5 1am Chief Complaint Admit Date 4-5 WEEKS December 15, 2024 7:51 am cough/SOB February 17, 2025 8: 34am Reason for Visit Admit Date Calcific tendinitis of right shoulder ne 2024 7:51am Shoulder pain, right December 15, 2024 7:5 1am Atrial fibrillation February 17, 2025 8: 34am Dyspnea February 17, 2025 8: 34am Elevated BP without diagnosis of hyperte nsion February 17, 2025 8:34am Additional Source Comments (unrecognized sect ion and content) No Status Records FoundNo Status Records FoundNo Status Records Found INFORMATION SOURCE (unrecogn ized section and content) DATE CREATED AUTHOR 02/09/2021 [facility] DATE CREATED AUTHOR AUTHOR'S ORGANIZ ATION 09/04/2023 [facility] DATE CREATED AUTHOR AUTHOR'S ORGANIZ ATION 11/11/2024 [facility] REASON FOR VISIT (unrecogniz ed section and content) ANXIETY, PRESCRIPTION DISCUS SIONwellness6 month Follow upNo InformationNo InformationAnxiety Medication for PlanemedicationNo Information Patient Care team informatio n (unrecognized section and content) Team Status: Active Member Role Status Aj Mckeon DO Primary Care Provider Active Team Status: Inactive Member Role Status Aj Mckeon DO Primary Care Provide r, Attending Provider Active Start: March 04, 2024 End: March 04, 2024 Team Status: Active Member Role Status Aj Mckeon DO Primary Care Provider Active Start: November 16, 2023 BERTHA Michael Attending Provider Active Start : November 16, 2023 Team Status: Inactive Member Role Status Aj Mckeon DO Primary Care Provide r, Attending Provider Active Start: February 01, 2024 End: February 01, 2024 Team Status: Inactive Member Role Status Aj Mckeon DO Primary Care Provide r, Attending Provider Active Start: September 30, 2024 End: September 30, 2024 Team Status: Inactive Member Role Status Aj Mckeon DO Primary Care Provider Active Start: November 08, 2024 End: November 08, 2024 Russel Toro MD Attending Provider Active Sta rt: November 08, 2024 End: November 08, 2024 Team Status: Active Member Role Status Aj Mckeon DO Primary Care Provider Active Start: November 08, 2024 Russel Toro MD Attending Provider Active Sta rt: November 08, 2024 Team Status: Inactive Member Role Status Aj Mckeon DO Primary Care Provider Active Start: November 10, 2024 End: November 10, 2024 Russel Waldron MD Attending Provider Active Star t: November 10, 2024 End: November 10, 2024 Team Status: Inactive Member Role Status Aj Mckeon DO Primary Care Provider Active Start: December 15, 2024 End: December 15, 2024 Russel Waldron MD Attending Provider Active Star t: December 15, 2024 End: December 15, 2024 Team Status: Inactive Member Role Status Aj Mckeon DO Primary Care Provider Active Start: February 17, 2025 End: February 17, 2025 Henrique Mckeon DO Attending Provider Active Sta rt: February 17, 2025 End: February 17, 2025 Team Status: Active Member Role Status Aj Mckeon DO Primary Care Provider Active Start: February 17, 2025 Henrique Mckeon DO Attending Provider Active Sta rt: February 17, 2025 Goals (unrecognized section and content) Goals may [...] BE BASED ON THE PRIMARY CLINICAL RECORDS. [facility]. provides no warranty or guarantee of the accuracy or completeness of information in this document.
--- NOTE | 2025-02-17 23:47 | ED_ITS ---
HPI - Chest Pain General Chief Complaint: Chest Pain Stated Complaint: CHEST PAIN Time Seen by Provider: 02/17/25 23:23 Source: patient Mode of arrival: walk-in Limitations: no limitations History of Present Illness HPI narrative: patient presents complaining of dyspnea for the past 3 months with exertion. states he normally plays Pickle ball but has not been able to due to dyspnea. Has awakened in the middle of the night with arm pain. Seen by his PCP today and found to be in A. Fib. Started on Eliquis. gaurav presents complaining of heavingess of his left chest and down his left arm. No Nausea or vomiting. also complains of sharp pain in his chest whenever he coughs Related Data Home Medications ?Medication ?Instructions ?Recorded ?Confirmed apixaban 5 mg tablet (Eliquis) 5 mg PO BID 02/17/25 carvedilol 3.125 mg tablet mg 02/17/25 Allergies Allergy/AdvReac Type Severity Reaction Status Date / Time No Known Drug Allergies Allergy Verified 02/17/25 23:25 Review of Systems ROS Status of ROS 10 or more systems reviewed and unremark able except as noted in history and below PFSH PFSH Social History Little interest or pleasure in doing things: not at all Feeling down, depressed, or hopeless: not at all Exam Constitutional Vital Signs, click to edit/add: Last Vital Signs Temp 98.1 F 02/17/25 23:25 Pulse 72 02/18/25 04:50 Resp 18 02/18/25 04:50 BP 121/77 02/18/25 04:30 Pulse Ox 92 L 02/18/25 04:50 O2 Del Method Room Air 02/17/25 23:25 Common normals: no apparent distress, average body habitus, oriented x3, no limitations, healthy appearing, alert and well nourished [facility] Common normals: normocephalic and head/scalp atraumatic Eye Common normals: EOMs intact bilaterally and conjunctivae normal Respiratory Common normals: normal respiratory effort, no retractions, no use of accessory muscles and clear to auscultation bilaterally Cardio Common normals: S1 normal heart sound and S2 normal heart sound Rhythm: abnormal rhythm GI Common normals: Normal to inspection, nondistended, normoactive bowel sounds present, soft to palpation and non-tender Extremity Common normals: normal to inspection and full ROM Neuro Common normals: oriented x3, CN's II-XII intact bilaterally, moves all extremities and no focal motor deficits Psych Appearance: grossly normal Course Vital Signs Vital signs: Vital Signs Pulse Oximetry 98 02/17/25 23:24 Temperature 98.1 F 02/17/25 23:25 Pulse Rate 72 02/18/25 04:50 Respiratory Rate 18 02/18/25 04:50 Blood Pressure 121/77 02/18/25 04:30 Pulse Oximetry 92 L 02/18/25 04:50 Oxygen Delivery Method Room Air 02/17/25 23:25 MDM - Chest Pain MDM Narrative Medical decision making narrative: patient presents with dyspnea on exertion. Has been waking up in the middle of the night with left arm pain. Seen by his PCP and found to be in A. fib. Started on Eliquis. Presents here with complaint of pressure on his chest like something is sitting on his chest and left arm pain. Symptoms resolve after nitro SL. workup neg except EKG with A. fib and elevated d-dimer. CTA chest neg. Discussed with the hospitalist and patient accepted for admission Lab Data Labs: Lab Results 02/17/25 Range/Units 23:35 WBC 11.8 H (4.0-11.0) 10^3/uL RBC 4.87 (4.70-6.10) 10^6/uL Hgb 15.7 (14.0-18.0) g/dL Hct 44.0 (42.0-54.0) % MCV 90.3 (80.0-94.0) fL MCH 32.2 (25.9-34.0) pg MCHC 35.7 H (29.9-35.2) g/dL RDW 12.1 (11.0-15.0) % Plt Count 274 (150-450) 10^3/uL MPV 9.8 (9.5-13.5) fL Neut % (Auto) 62.0 (43.0-75.0) % Lymph % (Auto) 26.4 (20.5-60.0) % [place] % (Auto) 8.8 (1.7-12.0) % Eos % (Auto) 1.8 (0.9-7.0) % Baso % (Auto) 0.7 (0.2-2.0) % Neut # (Auto) 7.3 H (1.4-6.5) 10^3/uL Lymph # (Auto) 3.1 (1.2-3.8) 10^3/uL [place] # (Auto) 1.0 H (0.3-0.8) 10^3/uL Eos # (Auto) 0.2 (0.0-0.7) 10^3/uL Baso # (Auto) 0.1 (0.0-0.1) 10^3/uL Abs Immat Gran (auto) 0.03 (0.00-0.03) 10^3/uL Imm/Tot Granulo (auto) 0.3 (0.0-0.5) % D-Dimer 1.24 H* (<=0.59) mg/L FEU Sodium 139 (136-145) mmol/L Potassium 4.2 (3.5-5.1) mmol/L Chloride 103 (98-107) mmol/L Carbon Dioxide 27.8 (21.0-32.0) mmol/L Anion Gap 12.4 BUN 15.0 (7.0-18.0) mg/dL Creatinine 0.93 (0.70-1.30) mg/dL Est GFR ( Amer) >60 (>=60 mL/min/1.73m^2) Est GFR (Non-Af Amer) >60 (>=60 mL/min/1.73m^2) BUN/Creatinine Ratio 16.1 Glucose 102 (74-106) mg/dL Calcium 9.2 (8.5-10.1) mg/dL Troponin I High Sens 14.3 (4.0-76.1) pg/mL NT-Pro-B Natriuret Pep 392.0 (<=450.0) pg/mL Discharge Plan Discharge Chief Complaint: Chest Pain Clinical Impression: Chest pain, rule out acute myocardial infarction Patient Disposition: Admitted as Observation
[2025-02-17] MEDS: ASPIRIN 81 MG TAB.CHEW 324 MG PO (23:50)
[2025-02-17 23:52] LABS: Hematocrit 44.0 % (42.0-54.0); Hemoglobin 15.7 g/dL (14.0-18.0); Immature Granulocytes Abs Auto 0.03 10^3/uL (0.00-0.03); Immature Granulocytes Pct Auto 0.3 % (0.0-0.5); Lymphocytes Absolute Auto 3.1 10^3/uL (1.2-3.8); Mean Corpuscular HGB Conc 35.7 g/dL (29.9-35.2); Mean Corpuscular Hemoglobin 32.2 pg (25.9-34.0); Mean Corpuscular Volume 90.3 fL (80.0-94.0); Platelet Count 274 10^3/uL (150-450); Red Blood Count 4.87 10^6/uL (4.70-6.10); White Blood Count 11.8 10^3/uL (4.0-11.0)
[2025-02-18] VITALS (51 sets, daily range): BP systolic 117–161; BP diastolic 68–110; PULSE 61–97; TEMP 36.4–36.6; O2SAT 89–96; BMI 29.3
[2025-02-18] MEDS: NITROGLYCERIN 2% 1 GRAM PACKET 1 GM TD
[2025-02-18 00:08] LABS: Anion Gap 12.4; Blood Urea Nitrogen 15.0 mg/dL (7.0-18.0); Calcium 9.2 mg/dL (8.5-10.1); Carbon Dioxide 27.8 mmol/L (21.0-32.0); Chloride 103 mmol/L (98-107); Estimated GFR (African America >60 (>=60 mL/min/1.73m^2); Estimated GFR (Non-African Ame >60 (>=60 mL/min/1.73m^2); Glucose 102 mg/dL (74-106); NT Pro B Type Natriuretic Pept 392.0 pg/mL (<=450.0); Potassium 4.2 mmol/L (3.5-5.1); Sodium 139 mmol/L (136-145)
--- NOTE | 2025-02-18 00:27 | PC.NURSE ---
this patient updated of the new order for a chest CTA
--- NOTE | 2025-02-18 01:09 | PC.NURSE ---
this patient awake and alert lying supine on the bed looking at his cell phone this patient vices his chest is better /10. this patient voices no concerns, needs and shows no signs of distress
--- OUTSIDE RECORDS SUMMARY | 2025-02-18 05:23 | XMS_ITS | CCD ---
Author Organization [facility] Care Team Providers Care Cvir Tech Name Role Phone MIKE, DR DUENAS Admitting Unavailable BALL, DR DUENAS Attending Unavailable BALL, DR DUENAS Primary Care Unavailable BALL, DR DUENAS Consulting Unavailable WEST, DR JEREMIAS Knight Consulting Unavailable REQUEST, DR MORGAN LISTED Admitting Unavaila ble REQUEST, DR MORGAN LISTED Attending Unavaila ble REQUEST, NONE LISTED Consulting Unavaila ble BALL, DR DUENAS Primary Care Unavailable Henrique Mckeon Unavailable HENRIQUE MCKEON Primary Care Physician [phone] BUTCH, Kory Nixon Attending Unavailable RAE, Kory R Attending Unavailable RAE, Kory R Referring Unavailable RAE, Kory R Admitting Unavailable RAE, Kory R Admitting Unavailable RAE, Kory R Attending Unavailable RAE, Kory R Admitting Unavailable RAE, Kory R Attending Unavailable RAE, Koyr R Attending Unavailable RAE, Kory R Attending Unavailable Henrique Mckeon DO Primary Care Provider Russel Toro MD Attending Provider [phone] Henrique Mckeon Primary Care Unavailable Russel Toro Attending Unavailable Russel Toro Admitting Unavailable Henrique Mckeon DO Primary Care Provider Russel Waldron MD Attending Provider [phone] Henrique Mckeon DO Attending Provider Henrique Mckeon DO Other Provider Alejandra Andrew MD Attending Provider Allergies Allergy Classification Reported Allergen(s) Allergy Type Date of Onset Reaction(s) Facility (1 source) No Known Medication Allergies; Translations: [No Known Medication Allergies] Propensity to adverse reactions (disorder) [facility] Repository Medications Current Medications Medication Drug Class(es) Dates Sig (Normalized) Sig (Original) carvedilol 3.125 mg oral tablet (2 sources) alpha-Adrenergic Sally, beta-Adrenergic Sally Start: 02-17-2025 take 1 tablet by mouth twice daily at mealtime cephalexin 500 mg oral capsule (1 source) Cephalosporin Antibacterial Start: 03-23-2023 End: 03-28-2023 take 1 capsule by mouth twice daily at mealtime Keflex 500 mg Cap 500 mg = 1 cap(s), Oral, BID, start with first meal after procedure, X 5 day(s), # 10 cap(s), Refills(s) 0, Pharmacy: [facility]/pharmacy #[id number], 190, cm, 03/23/23 12:39:00 EDT, Height/Length Dosing, 88, kg, 03/23/23 12:39:00 EDT, Weight Dosing Start Date: 03/23/23 Stop Date: 03/28/23 Status: Ordered diazePAM 10 mg oral tablet (2 sources) Benzodiazepine Start: 03-23-2023 Valium 10 mg Tab 10 mg = 1 tab(s), Oral, Once, take one hour prior to procedure, # 1 tab(s), Refills(s) 0, Pharmacy: [facility]/pharmacy #[id number], 190, cm, 03/23/23 12:39:00 EDT, Height/Length Dosing, 88, kg, 03/23/23 12:39:00 EDT, Weight Dosing Start Date: 03/23/23 Status: Ordered gabapentin 100 mg oral capsule (8 sources) Anti-epileptic Agent Start: 01-12-2025 take 1 [...] mg / clavulanate 125 mg oral tablet (8 sources) Penicillin-class Antibacterial Start: 03-04-2024 End: 09-30-2024 take 1 tablet by mouth every twelve hours Amoxicillin-Pot Clavulanate 875-125 mg tablet Discontinued 1 TAB PO Every 12 hours 14 March 04, 2024 12:00am September 30, 2024 10:10am benzonatate 200 mg oral capsule (8 sources) Non-narcotic Antitussive Start: 03-04-2024 End: 09-30-2024 take 1 capsule by mouth three times daily Benzonatate 200 mg capsule Discontinued 200 MG PO Three times daily 30 March 04, 2024 12:00am September 30, 2024 10:15am doxycycline hyclate 100 mg oral capsule (9 sources) Tetracycline-class Drug Start: 02-01-2024 End: 03-04-2024 [...] Mar, Not-Taking/PRN predniSONE 20 mg oral tablet (13 sources) Start: 09-30-2024 End: 11-08-2024 Prednisone 20 [...] Mar, Not-Taking tiZANidine 4 mg oral tablet (7 sources) Central alpha-2 Adrenergic Agonist Start: 09-30-2024 End: 10-25-2024 take 1 tablet by mouth once daily at bedtime as needed Tizanidine 4 mg tablet Discontinued 4 MG PO Daily at bedtime as needed for muscle spasticity 14 September 30, 2024 12:00am October 25, [...] other specified organisms] 03-04-2024 Episodic Anxiety disorders (20 sources) Generalized anxiety disorder; Translations: [Generalized anxiety disorder] Onset: 06-09-2017 Chronic Cardiac dysrhythmias (4 sources) Atrial fibrillation; Translations: [Unspecified atrial fibrillation] [...] diagnosis of hypertension Episodic Other circulatory disease (4 sources) Elevated blood-pressure reading without diagnosis of hypertension; Translations: [Elevated blood-pressure reading, without diagnosis of hypertension] 02-17-2025 Episodic Other connective tissue disease (6 sources) Calcific tendinitis of right shoulder; Translations: [Calcific tendinitis of right shoulder] 11-10-2024 Episodic Other connective tissue disease (3 sources) Calcific tendinitis of right shoulder; Translations: [Calcifying tendinitis of shoulder] 11-10-2024 Episodic Other lower respiratory disease (8 sources) Productive cough ; Translations: [Productive cough] 03-04-2024 Episodic Other lower respiratory disease (4 sources) Dyspnea; Translations: [Dyspnea, unspecified] 02-17-2025 Episodic [...] Spondylosis; intervertebral disc disorders; other back problems (19 sources) Lumbar spondylosis; Translations: [Spondylosis without myelopathy or radiculopathy, lumbar region] Chronic Spondylosis; intervertebral disc disorders; other back problems (20 sources) Neck pain; Translations: [Cervicalgia] 09-30-2024 Episodic Unclassified (2 sources) Patient encounter status 03-19-2023 Viral infection (11 sources) Herpes simplex type 1 infection; Translations: [Herpesviral infection, unspecified] Episodic Results Test Name Value Interpretation Reference Range Facility Basophils Auto (Bld) [#/Vol] Ordered By: Henrique Mckeon on 02-17-2025 Basophils (Bld) [#/Vol] 0.1 10 3/uL 0.0-0.1 [facility] Basophils/100 WBC Auto (Bld) Ordered By: Henrique Mckeon on 02-17-2025 Basophils/100 WBC (Bld) 0.7 % 0.2-2.0 [facility] Eosinophils/100 WBC Auto (Bl d)Ordered By: Henrique Mckeon on 02-17-2025 Eosinophils/100 WBC (Bld) 1.8 % 0.9-7.0 [facility] Erythrocyte distribution wid th Auto (RBC) [Ratio]Ordered By: Henrique Mckeon on 02-17-2025 Erythrocyte distribution width (RBC) [Ratio] 12.1 % 11.0-15.0 [facility] Hematocrit Auto (Bld) [Volum e fraction]Ordered By: Henrique Mckeon on 02-17-2025 Hematocrit (Bld) [Volume fraction] 44.0 % 42.0-54.0 [facility] Hemoglobin [Mass/volume] in BloodOrdered By: Henrique Mckeon on 02-17-2025 Hemoglobin (Bld) [Mass/Vol] 15.7 g/dL 14.0-18.0 [facility] Laboratory - Hematology and Cell countsOrdered By: Henrique Mckeon on 02-17-2025 Immature granulocytes/100 WBC (Bld) 0.3 % 0.0-0.5 [facility] Leukocytes [#/volume] correc ana for nucleated erythrocytes in Blood by Automated counOrdered By: Henrique Mckeon on 02-17-2025 WBC corrected for nucl RBC Auto (Bld) [#/Vol] 11.8 10 3/uL High 4.0-11.0 [facility] Lymphocytes Auto (Bld) [#/Vo l]Ordered By: Henrique Mckeon on 02-17-2025 Lymphocytes (Bld) [#/Vol] 3.1 10 3/uL 1.2-3.8 [facility] Lymphocytes/100 WBC Auto (Bl d)Ordered By: Henrique Mckeon on 02-17-2025 Lymphocytes/100 WBC (Bld) 26.4 % 20.5-60.0 [facility] MCH Auto (RBC) [Entitic mass ]Ordered By: Henrique Mckeon on 02-17-2025 MCH (RBC) [Entitic mass] 32.2 pg 25.9-34.0 [facility] MCHC Auto (RBC) [Mass/Vol]Or dered By: Henrique Mckeon on 02-17-2025 MCHC (RBC) [Mass/Vol] 35.7 g/dL High 29.9-35.2 [facility] MCV Auto (RBC) [Entitic vol] Ordered By: Henrique Mckeon on 02-17-2025 MCV (RBC) [Entitic vol] 90.3 fL 80.0-94.0 [facility] Monocytes Auto (Bld) [#/Vol] Ordered By: Henrique Mckeon on 02-17-2025 Monocytes (Bld) [#/Vol] 1.0 10 3/uL High 0.3-0.8 [facility] Monocytes/100 WBC Auto (Bld) Ordered By: Henrique Mckeon on 02-17-2025 Monocytes/100 WBC (Bld) 8.8 % 1.7-12.0 [facility] Neutrophils Auto (Bld) [#/Vo l]Ordered By: Henrique Mckeon on 02-17-2025 Neutrophils (Bld) [#/Vol] 7.3 10 3/uL High 1.4-6.5 [facility] Neutrophils/100 WBC Auto (Bl d)Ordered By: Henrique Mckeon on 02-17-2025 Neutrophils/100 WBC (Bld) 62.0 % 43.0-75.0 [facility] No Panel InformationOrdered By: Henrique Mckeon on 02-17-2025 Eosinophils # (Auto) 0.2 10 3/uL 0.0-0.7 [facility] Immature Granulocyte # (Auto) 0.03 10 3/uL 0.00-0.03 [facility] Platelet mean volume Auto (B ld) [Entitic vol]Ordered By: Henrique Mckeon on 02-17-2025 Platelet mean volume (Bld) [Entitic vol] 9.8 fL 9.5-13.5 [facility] Platelets Auto (Bld) [#/Vol] Ordered By: Henrique Mckeon on 02-17-2025 Platelets (Bld) [#/Vol] 274 10 3/uL 150-450 [facility] RBC Auto (Bld) [#/Vol]Ordere d By: Henrique Mckeon on 02-17-2025 RBC (Bld) [#/Vol] 4.87 10 6/uL 4.70-6.10 [facility] X-ray reportOrdered By: Chico Hidalgo on 11-08-2024 Study report [facility] [address] [place] [address] XRay Report Signed Patient: Lamonte Moore MR#: [id number] : 1975 Acct:[id number] Age/Sex: 49 / M ADM Date: 5 Loc: [facility] Room: Type: [facility] Attending Dr: Russel Toro MD Copies to: [...] Hidalgo Jr, DO 11/08/242058 Signed By: 11/08/242099 [facility] XR shoulder RT min 2V*on XR shoulder RT min 2V* [facility] [address] [place] [address] XRay Report Signed Patient: Lamonte Moore MR#: [id number] 5 : 1975 Acct:[id number] Age/Sex: 49 / M ADM Date: 11/08/24 [place] [facility] [place]: Type: [facility] Attending Dr: Russel Toro MD Copies to: [...] PM Dictation Location: RADIO-PC-18 Transcribed By: CARA 11/08/24 2100 Dictated By: Demarcus Hidalgo Jr, DO 11/08/242058 Signed By: 11/08/242099 Normal [facility] Basophils Auto (Bld) [#/Vol] on 09-30-2024 Basophils (Bld) [#/Vol] Automated basophil count 0.0-0.1 [facility] Basophils/100 WBC Auto (Bld) on 09-30-2024 Basophils/100 WBC (Bld) Automated basophil % 0.2-2.0 [facility] Cholesterol in LDL Calc [Mas s/Vol]on 09-30-2024 Cholesterol in LDL [Mass/Vol] Cholesterol in LDL [Mass/volume] in Serum or Plasma by calculation [facility] Comment on above: <100 mg/dl [id number] 0-129 mg/dl NEAR OR ABOVE [id number] mg/dl BORDERLINE [id number] mg/dl HIGH>190 mg/dl VERY HIGH Cholesterol in VLDL Calc [Ma ss/Vol]on 09-30-2024 Cholesterol in VLDL [Mass/Vol] Cholesterol in VLDL [Mass/volume] in Serum or Plasma by calculation [facility] Eosinophils/100 WBC Auto (Bl d)on 09-30-2024 Eosinophils/100 WBC (Bld) Automated eosinophil % 0.9-7.0 [facility] Erythrocyte distribution wid th Auto (RBC) [Ratio]on 09-30-2024 Erythrocyte distribution width (RBC) [Ratio] Erythrocyte distribution width [Ratio] by Automated count 11.0-15.0 [facility] Estimated glomerular filtrat ion rate (GFR) non- Americanon 09-30-2024 GFR/1.73 sq M.predicted among non-blacks MDRD (S/P/Bld) [Vol rate/Area] Estimated glomerular filtration rate (GFR) non- >=60 mL/min/1.73m 2 [facility] Globulin Calc (S) [Mass/Vol] on 09-30-2024 Globulin (S) [Mass/Vol] Serum globulin measurement by calculation (mass/volume) [facility] Hematocrit Auto (Bld) [Volum e fraction]on 09-30-2024 Hematocrit (Bld) [Volume fraction] Hematocrit [Volume Fraction] of Blood by Automated count 42.0-54.0 [facility] Hemoglobin [Mass/volume] in Bloodon 09-30-2024 Hemoglobin (Bld) [Mass/Vol] Hemoglobin [Mass/volume] in Blood 14.0-18.0 [facility] Laboratory - Chemistry and C hemistry - challengeon 09-30-2024 Albumin [Mass/Vol] 4.4 g/dL 3.4-5.0 [facility] ALP [Catalytic activity/Vol] 81 U/L 46-116 [facility] ALT [Catalytic activity/Vol] 29 U/L 16-63 [facility] AST [Catalytic activity/Vol] 17 U/L 15-37 [facility] Bilirubin [Mass/Vol] 0.9 mg/dL 0.2-1.0 [facility] Calcium [Mass/Vol] 9.3 mg/dL 8.5-10.1 [facility] Chloride [Moles/Vol] 104 mmol/L 98-107 [facility] Cholesterol [Mass/Vol] 177 mg/dL <=200 [facility] Cholesterol in HDL [Mass/Vol] 65 mg/dL High 40-60 [facility] Comment on above: > or =60 mg/dl - LOW CARDIOVASCULAR RISK<40 mg/dl - HIGH CARDIOVASCULAR RISK CO2 [Moles/Vol] 29.2 mmol/L 21.0-32.0 [facility] Creatinine [Mass/Vol] 1.00 mg/dL 0.70-1.30 [facility] GFR/1.73 sq M.predicted MDRD (S/P/Bld) [Vol rate/Area] mL/min/{1.73_m2} >=60 mL/min/1.73m 2 [facility] Glucose [Mass/Vol] 90 mg/dL 74-106 [facility] Potassium [Moles/Vol] 4.3 mmol/L 3.5-5.1 [facility] Protein [Mass/Vol] 7.9 g/dL 6.4-8.2 [facility] Sodium [Moles/Vol] 142 mmol/L 136-145 [facility] Triglyceride [Mass/Vol] 54 mg/dL <=150 [facility] Urea nitrogen [Mass/Vol] 16.0 mg/dL 7.0-18.0 [facility] Urea nitrogen/Creatinine [Mass ratio] 16.0 mg/mg [facility] Laboratory - Hematology and Cell countson 09-30-2024 Immature granulocytes/100 WBC (Bld) 0.3 % 0.0-0.5 [facility] Leukocytes [#/volume] correc ana for nucleated erythrocytes in Blood by Automated counon 09-30-2024 WBC corrected for nucl RBC Auto (Bld) [#/Vol] Leukocytes [#/volume] corrected for nucleated erythrocytes in Blood by Automated coun 4.0-11.0 [facility] Lymphocytes Auto (Bld) [#/Vo l]on 09-30-2024 Lymphocytes (Bld) [#/Vol] Lymphocytes [#/volume] in Blood by Automated count 1.2-3.8 [facility] Lymphocytes/100 WBC Auto (Bl d)on 09-30-2024 Lymphocytes/100 WBC (Bld) Lymphocytes/100 leukocytes in Blood by Automated count 20.5-60.0 [facility] MCH Auto (RBC) [Entitic mass ]on 09-30-2024 MCH (RBC) [Entitic mass] MCH [Entitic mass] by Automated count 25.9-34.0 [facility] MCHC Auto (RBC) [Mass/Vol]on 09-30-2024 MCHC (RBC) [Mass/Vol] MCHC [Mass/volume] by Automated count High 29.9-35.2 [facility] MCV Auto (RBC) [Entitic vol] on 09-30-2024 MCV (RBC) [Entitic vol] MCV [Entitic volume] by Automated count 80.0-94.0 [facility] Monocytes Auto (Bld) [#/Vol] on 09-30-2024 Monocytes (Bld) [#/Vol] Automated blood monocyte count 0.3-0.8 [facility] Monocytes/100 WBC Auto (Bld) on 09-30-2024 Monocytes/100 WBC (Bld) Automated monocyte % 1.7-12.0 [facility] Neutrophils Auto (Bld) [#/Vo l]on 09-30-2024 Neutrophils (Bld) [#/Vol] Neutrophils [#/volume] in Blood by Automated count 1.4-6.5 [facility] Neutrophils/100 WBC Auto (Bl d)on 09-30-2024 Neutrophils/100 WBC (Bld) Automated neutrophil % 43.0-75.0 [facility] No Panel Informationon 09-30 Eosinophils # (Auto) 0.4 10 3/uL 0.0-0.7 [facility] Immature Granulocyte # (Auto) 0.03 10 3/uL 0.00-0.03 [facility] Platelet mean volume Auto (B ld) [Entitic vol]on 09-30-2024 Platelet mean volume (Bld) [Entitic vol] Platelet mean volume [Entitic volume] in Blood by Automated count 9.5-13.5 [facility] Platelets Auto (Bld) [#/Vol] on 09-30-2024 Platelets (Bld) [#/Vol] Platelets [#/volume] in Blood by Automated count 150-450 [facility] RBC Auto (Bld) [#/Vol]on RBC (Bld) [#/Vol] Erythrocytes [#/volume] in Blood by Automated count 4.70-6.10 [facility] Serum or plasma albumin/glob ulin mass ratioon 09-30-2024 Albumin/Globulin [Mass ratio] Serum or plasma albumin/globulin mass ratio [facility] Serum or plasma anion gap de terminationon 09-30-2024 Anion gap [Moles/Vol] Serum or plasma anion gap determination [facility] Serum or plasma total choles terol/high density lipoprotein (HDL) cholesterol mass marie 09-30-2024 Cholesterol.total/Chol esterol in HDL [Mass ratio] Serum or plasma total cholesterol/high density lipoprotein (HDL) cholesterol mass rat [facility] Comment on above: 3.3 - 4.4 LOW RISK4. 4 - 7.1 AVERAGE RISK7.1 - 11.0 MODERATE RISK>11.0 HIGH RISK Semen Analysis PostVason Deana/Transport Prob No Problems Normal [facility] Comment on above: Performed By: #### 2 [id number], [id number] ####[facility] [address] [place] [address] Collect. Meth Masturbation Normal [facility] Comment on above: Performed By: #### 2 [id number], [id number] ####[facility] [address] [place] [address] Days Abstained Invalid Interpretation Code 2-5 [facility] Comment on above: Performed By: #### 2 [id number], [id number] ####[facility] [address] [place] [address] Post Vas Screen No Sperm Seen Normal <=0 [facility] Comment on above: Result Comment: A Co ncentration Technique is used to confirm any semen which is azospermic (no sperm seen). Performed By: #### 2 [id number], [id number] ####[place] [id number] Spec. Container Steril Container Normal [facility] Comment on above: Performed By: #### 2 [id number], [id number] ####[place] [id number] Spec. Temp 22 DegC Normal 20-37 [facility] Comment on above: Performed By: #### 2 [id number], [id number] ####[place] [id number] Sperm Morphon 09-01-2023 Sperm Morph No sperm identified (A concentration technique is used to evaluate this specimen). ICD10 Z30.9 Invalid Interpretation Code [facility] Comment on above: Other Comment: Order Added by Discern Expert. Sperm Morph No sperm identified (A concentration technique is used to evaluate this specimen). Invalid Interpretation Code [facility] Comment on above: Order Comment: Order Added by Discern Expert. Performed By: #### 2 [id number], [id number] ####[facility] [address] [place] [address] Semen Analysis PostVason Deana/Transport Prob No Problems Normal Fish [facility] Comment on above: Performed By: #### 2 [id number], [id number] ####[place] [address] [place] [address] Collect. Meth Masturbation Normal [facility] Comment on above: Performed By: #### 2 [id number], [id number] ####[address] [address] Days Abstained 1 day(s) Low 2-5 [facility] Comment on above: Performed By: #### 2 [id number], [id number] ####[address] [address] Post Vas Screen Present Normal <=0 [facility] Comment on above: Result Comment: Rare Non-Motile Sperm Seen A Concentration Technique is used to confirm any semen which is azospermic (no sperm seen). Performed By: #### 2 [id number], [id number] ####[place] [id number] Spec. Container Steril Container Normal [facility] Comment on above: Performed By: #### 2 [id number], [id number] ####[place] [id number] Spec. Temp 23 DegC Normal 20-37 [facility] Comment on above: Performed By: #### 2 [id number], [id number] ####[address] [address] Sperm Morphon 06-03-2023 Sperm Morph Rare unremarkable sperms present (concentration technique performed). Invalid Interpretation Code [facility] Comment on above: Other Comment: Order Added by Discern Expert. Order Comment: Order Added by Discern Expert. Performed By: #### 2 [id number], [id number] ####[address] [address] Ambulatory Visit Summaryon 1 07-20-2022 Ambulatory Visit Summary LAMONTE MOORE :1975 Visit Date:05/20/2023 Ambulatory Visit Instructions Your Diagnosis Status post vasectomy Your Care Team Attending Physician - BUTCH OROZCO, Kory Nixon Primary Care Physician - HENRIQUE MCKEON DO Procedures Performed Vasectomy (04/28/2023), Procedure on back, Procedure on femur. Discharge Vitals Heart Rate (Peripheral) 64 Blood Pressure 123/90 Height 190 cm Height 75 in Weight 88 kg Weight 193.6 lb BMI 24.38 What to do next You Need to Schedule the Following Appointments Follow Up with BUTCH OROZCO, GRIS [place] When: Where: [facility] [address] [place] [address]- You Need to Complete the Following Semen [...] hours. Spermi (more content not included)... Normal [facility] Patient Educationon 05-20-20 23 Patient Education [...] man ca (more content not included)... Normal [facility] Urology Office/Clinic Noteon 05-20-2023 Urology Office/Clinic Note [...] to pt. Two semen analyses ordered for [facility]. Follow-up With When Contact Information Kory RAE MD, URL [facility] [address], [place] [address]- Additional Instructions: PRN Patient Education Contraception Choices [...] Tobacco Use:. Never Smokeless Tobacco Use:., 05/20/2023 [facility] Comment on above: Result Comment: Elec tronically Signed By: Kory RAE MD\.br\Date and Time Signed: 05/20/23 10:28 EST\.br\Electronically Co-Signed By: Nery Huerta\.br\Date and Time Co-Signed: 05/20/23 10:27 EST Consent for Procedure/Surger yon 04-28-2023 Consent for Procedure/Surgery [id number]#[id number] [facility] Consent for Treatmenton 04-06 Consent for Treatment [id number]#[id number] Normal [facility] IntraOperative Documentson 1 IntraOperative Documents [id number] Normal [facility] Main OR Intraoperative Recor don 04-28-2023 Main OR Intraoperative Record IntraOp Document Type FTURO Summary Primary Physician: Kory RAE MD Finalized Date/Time: 04/28/23 09:52:52 Pt. Name: LAMONTE MOORE/Sex: 1975 Male Med Rec #: [id number] Physician: Kory RAE MD Financial #: [id number] Pt. Type: O Room/Bed: / Admit/Disch: 04/28/23 08:13:18 - Institution: Case Times FTURO Entry 1 Patient Times In Room 04/28/23 09:07:00 Out Room 04/28/23 09:51:00 Procedure Times Start 04/28/23 09:10:00 Stop 04/28/23 09:45:00 Anesthesia Times Last Modified By: Jenny LEIJA, Kandi PURI 04/28/23 09:46:48 Case Attendance FTURO Entry 1 Entry 2 Entry 3 Case Attendee Kory RAE MD, RN, JORDIOR, [employer] Role Performed Surgeon - Primary Acquisitions Librarian - Primary Scrub - Primary Time In 04/28/23 09:07:00 04/28/23 09:07:00 04/28/23 09:07:00 Time Out 04/28/23 09:51:00 04/28/23 09:51:00 04/28/23 09:51:00 Procedure VASECTOMY LOCAL(.) VASECTOMY LOCAL(.) VASECTOMY LOCAL(.) Comments Last Modified By: Jenny RN, CNOR, Jenny RN, JORDIOR, Jenny LEIJA, Kandi PURI 04/28/23 Kandi 04/28/23 Kandi 04/28/23 09:46:56 09:46:56 09:46:56 Surgical Procedures FTURO Entry 1 Procedure Description Procedure VASECTOMY LOCAL Modifiers . Surgeon Description VASECTOMY Primary Procedure Yes Primary Surgeon Kory RAE MD Start 04/28/23 09:10:00 Stop 04/28/23 09:45:00 Anesthesia Type Local Surgical Service Urology Wound Class 2 - Clean-Contaminated Last Modified By: JAXSON Alvarado RN, Ruthann 04/28/23 09:47:08 General Case Data FTURO Pre-Care [...] Outcomes Met? Yes Last Modified By: JAXSON Avlarado RN, Ruthann 04/28/23 09:27:51 Post-Care Text: The [...] JAXSON Alvarado RN, Ruthann 04/28/23 09:52 Normal [facility] Main OR Preoperative Recordo n 04-28-2023 Main OR Preoperative Record Holding Area Document Type FTURO Summary Primary Physician: Kory RAE MD Finalized Date/Time: 04/28/23 09:16:17 Pt. Name: LAMONTE MOORE Jackie/Sex: 1975 Male Med Rec #: [id number] Physician: Kroy RAE MD Financial #: [id number] Pt. Type: O Room/Bed: / Admit/Disch: 04/28/23 [...] Complaints of Pain: No Skin Integrity Dry, [place], Warm Vitals - EU Blood Pressure 143/88 Pulse 62 bpm Respirations 14 br/min SPO2 99 % Additional None RN Reviewed Yes Specimens Collected Last Modified By: JAXSON Alvarado RN, Ruthann 04/28/23 09:16:15 General Comments: 97.9 Finalized By: JAXSON Alvarado RN, Ruthann Document Signatures Signed By: Lea Menezes RN 04/28/23 08:36 JAXSON Alvarado RN, Ruthann 04/28/23 09:16 Normal [facility] Operative Reporton Operative Report Patient: LAMONTE MOORE Age: 48 years Sex: Male : 1975 Associated Diagnoses: None Author: Kory RAE MD Procedure Operative Information Details: Date/ Time: 04/28/2023 09:50:00. Pre-Op Dx: Sterilization - Z30.2. Post-Op Dx: Same. Anesthesia Type: Local. Procedure: Bilateral Segmental Vasectomy. Complications: None. Risks/Benefits/Info rmed Consent: Surgical risks, benefits, details of the [...] well and no complications were noted. Normal [facility] Comment on above: Result Comment: Elec marvinally Signed By: BUTCH OROZCO, Kory Lugo.shelly\Date and Time Signed: 04/28/23 09:50 EDT Patient [...] to 2 weeks after your procedure. Normal [facility] Insurance Correspondenceon 1 Insurance Correspondence [id number] Normal [facility] Provider Letteron 03-23-2023 Provider Letter March 23, 2023 [place] [address] : 1975 To Whom It May Concern, Please excuse above patient from work. Date of Illness: From: 04/28/2023 To: 04/29/2023 May Return to Work On:05/02/2023 Restrictions: No work 04/28/2023- 05/01/2023 Comments: Patient is having surgical procedure on 04/28/2023. 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 Discussed the medication side effects, and the patient will monitor closely for these, as well as for symptom improvement. If severe side effects occur, the medication should be stopped and the office notified. Follow-up With When Contact Information Kory RAE MD, URL [facility] [address], [place] [address] [phone] Additional Instructions: Sched Vasectomy Patient Education Vasectomy I, Tesha Manzo , personally scribed for Dr. Rae on 03/23/2023 13:45:50. . Documentation recorded by the scribeTesha, accurately reflects the services(s) I performed and [...] 03/23/2023 Lab (more content not included)... Normal [facility] Comment on above: Result Comment: Elec [...] by: JEREMIAS TAY Date: 2020-12-06 13:24 Normal [facility] Vital Signs Date Time Vital Sign Value Performing Clinician Facility 02-17-2025 09:02-0400 Body height 190.5 cm Henrique Mckeon DO Work Phone: [facility] 02-17-2025 09:02-0400 Body mass index (BMI) [Ratio] 29 kg/m2 Henrique Ball DO Work Phone: [facility] 02-17-2025 09:02-0400 Body weight 105.34 kg Henrique Ball DO Work Phone: [facility] 02-17-2025 09:02-0400 Diastolic blood pressure 114 mm[Hg] Henrique Ball DO Work Phone: [facility] 02-17-2025 09:02-0400 Diastolic blood pressure 90 mm[Hg] Henrique Ball DO Work Phone: [facility] 02-17-2025 09:02-0400 Heart rate 73 /min Henrique Ball DO Work Phone: [facility] 02-17-2025 09:02-0400 Respiratory rate 12 /min Henrique Ball DO Work Phone: [facility] 02-17-2025 09:02-0400 Systolic blood pressure 165 mm[Hg] Henrique Ball DO Work Phone: [facility] 02-17-2025 09:02-0400 Systolic blood pressure 150 mm[Hg] Henrique Ball DO Work Phone: [facility] 12-15-2024 08:00-0400 Body height 190.5 cm Henrique Ball DO Work Phone: [facility] 11-10-2024 08:29-0400 Body height 190.5 cm Henrique Ball DO Work Phone: [facility] 11-10-2024 08:29-0400 Body mass index (BMI) [Ratio] 25.9 kg/m2 Henrique Ball DO Work Phone: [facility] 11-10-2024 08:29-0400 Body weight 93.89 kg Henrique Ball DO Work Phone: [facility] 09-30-2024 10:15-0400 Body height 190.5 cm [facility] 09-30-2024 10:15-0400 Body mass index (BMI) [Ratio] 26.9 kg/m2 [facility] 09-30-2024 10:15-0400 Body weight 97.74 kg [facility] 09-30-2024 10:15-0400 Diastolic blood pressure 86 mm[Hg] [facility] 09-30-2024 10:15-0400 Heart rate 66 /min [facility] 09-30-2024 10:15-0400 Respiratory rate 12 /min [facility] 09-30-2024 10:15-0400 Systolic blood pressure 130 mm[Hg] [facility] 05-20-2023 14:00-0500 Body height 190.5 cm Henrique Ball Other [facility] [employer] Other 05-20-2023 14:00-0500 Body mass index (BMI) [Ratio] 25.37 kg/m2 Henrique Ball Other [facility] [employer] Other 05-20-2023 14:00-0500 Body weight 92.08 kg Henrique Ball Other [facility] [employer] Other 05-20-2023 14:00-0500 Diastolic blood pressure 92 mm[Hg] Henrique Ball Other [facility] [employer] Other 05-20-2023 14:00-0500 Respiratory rate 12 /min Henrique Ball Other [facility] [employer] Other 05-20-2023 14:00-0500 Systolic blood pressure 138 mm[Hg] Henrique Ball Other [facility] [employer] Other 05-20-2023 09:28-0500 Blood Pressure Location Kory RAE [facility] 05-20-2023 09:28-0500 Diastolic blood pressure 90 mm[Hg] Kory RAE [facility] 05-20-2023 09:28-0500 Heart rate 64 /min Kory RAE [facility] 05-20-2023 09:28-0500 Systolic blood pressure 123 mm[Hg] Korynataliia RAE [facility] 03-23-2023 12:17-0400 Blood Pressure Location Korynataliia RAE [facility] 03-23-2023 12:17-0400 Diastolic blood pressure 86 mm[Hg] Korynataliia RAE [facility] 03-23-2023 12:17-0400 Heart rate 72 /min Korynataliia RAE [facility] 03-23-2023 12:17-0400 Respiratory rate 16 /min Kory RAE [facility] 03-23-2023 12:17-0400 Systolic blood pressure 135 mm[Hg] Kory RAE [facility] 12-04-2022 09:30-0400 Body height 190.5 cm Henrique Ball Other [facility] [employer] Other 12-04-2022 09:30-0400 Body mass index (BMI) [Ratio] 25 kg/m2 Henrique Ball Other [facility] [employer] Other 12-04-2022 09:30-0400 Body weight 90.72 kg Henrique Ball Other [facility] [employer] Other 12-04-2022 09:30-0400 Diastolic blood pressure 82 mm[Hg] Henrique Ball Other [employer] Other 12-04-2022 09:30-0400 Respiratory rate 12 /min Henrique Ball Other [facility] Other 12-04-2022 09:30-0400 Systolic blood pressure 139 mm[Hg] Henrique Ball Other [facility] Other 07-25-2022 11:30-0500 Body height 190.5 cm Henrique Ball Other [facility] Other 07-25-2022 11:30-0500 Body mass index (BMI) [Ratio] 26.85 kg/m2 Henrique Ball Other [facility] Other 07-25-2022 11:30-0500 Body weight 97.43 kg Henrique Ball Other [facility] Other 07-25-2022 11:30-0500 Diastolic blood pressure 90 mm[Hg] Henrique Ball Other [facility] Other 07-25-2022 11:30-0500 Respiratory rate 12 /min Henrique Ball Other [facility] Other 07-25-2022 11:30-0500 Systolic blood pressure 126 mm[Hg] Henrique Ball Other [facility] Other 07-25-2022 09:30-0500 Body height 190.5 cm Henrique Ball Other [facility] Other 07-25-2022 09:30-0500 Body mass index (BMI) [Ratio] 26.85 kg/m2 Henrique Ball Other [facility] Other 07-25-2022 09:30-0500 Body weight 97.43 kg Henrique Ball Other [facility] Other 07-25-2022 09:30-0500 Diastolic blood pressure 90 mm[Hg] Henrique Mckeon Other [facility] [employer] Other 07-25-2022 09:30-0500 Respiratory rate 12 /min Henrique Ball Other [facility] [employer] Other 07-25-2022 09:30-0500 Systolic blood pressure 126 mm[Hg] Henrique Mckeon Other [facility] [employer] Other Encounters Encounter Date Encounter Type Care Provider Facility Start: 02-17-2025 Non-patient / Non-visit Alejandra holguin MD -[facility] Work Phone: Start: 02-17-2025 End: 02-17-2025 ambulatory Henrique Ball DO Work Phone: [facility] Work Phone: Start: 02-17-2025 End: 02-17-2025 Patient encounter procedure Henrique Ball DO -[facility] Work Phone: Start: 12-15-2024 End: 12-15-2024 ambulatory Henrique Ball DO Work Phone: [facility] Work Phone: Start: 12-15-2024 End: 12-15-2024 Patient encounter procedure Henrique Ball DO Work Phone: [facility] Work Phone: Start: 11-10-2024 End: 11-10-2024 ambulatory Henrique Ball DO Work Phone: [facility] Work Phone: Start: 11-10-2024 End: 11-10-2024 Patient encounter procedure Henrique Ball DO Work Phone: [facility] Work Phone: Start: 11-08-2024 End: 11-08-2024 ambulatory Henrique Ball DO Work Phone: [facility] Work Phone: Start: 11-08-2024 End: 11-08-2024 Patient encounter procedure Henrique Mckeon DO Work Phone: [facility] Work Phone: Start: 09-30-2024 End: 09-30-2024 ambulatory [facility] Work Phone: Start: 09-30-2024 End: 09-30-2024 Encounter for general adult medical examination without abnormal findings [facility] Start: 09-30-2024 End: 09-30-2024 Patient encounter procedure [facility] Work Phone: Start: 09-27-2024 Patient encounter status [facility] Start: 03-04-2024 End: 03-04-2024 ambulatory [facility] Work Phone: Start: 03-04-2024 End: 03-04-2024 Patient encounter procedure [facility] Work Phone: Start: 02-01-2024 End: 02-01-2024 ambulatory [facility] Work Phone: Start: 02-01-2024 End: 02-01-2024 Patient encounter procedure [facility] Work Phone: Start: 11-16-2023 Non-patient / Non-visit [facility] Work Phone: Start: 08-27-2023 End: 08-28-2023 ambulatory Kory RAE Facility:[facility] Start: 08-27-2023 End: 08-27-2023 Lab Drop off Kory RAE [facility] Start: 07-20-2023 End: 07-20-2023 ambulatory Henrique Mckeon Other [facility] Other Start: 07-20-2023 Telephone encounter Henrique Mckeon [facility] Start: 07-15-2023 End: 07-15-2023 ambulatory Henrique Mckeon Other [facility] Other Start: 07-15-2023 Telephone encounter Henrique CROCKETT [facility] Start: 05-26-2023 End: 05-27-2023 ambulatory Kory Tiffani RAE Facility:[facility] Start: 05-26-2023 End: 05-26-2023 Lab Drop off Kory Tiffani RAE [facility] Start: 05-20-2023 Office outpatient vi sit 15 minutes Henrique Mckeno [facility] Start: 05-20-2023 End: 05-21-2023 ambulatory Koyr Tiffani RAE [facility] [employer] Other Start: 05-20-2023 End: 05-20-2023 Patient encounter procedure Kory RAE [facility] [employer] Start: 05-15-2023 ambulatory Kory Tiffani RAE Facili ty:[facility] [place] Start: 04-28-2023 End: 04-29-2023 ambulatory Kory Tiffani RAE Facility:[facility] Start: 04-28-2023 End: 04-28-2023 Patient encounter procedure Kory RAE [facility] Start: 03-23-2023 ambulatory Korynataliia RAE Facility :[facility] Start: 03-23-2023 End: 03-24-2023 ambulatory Kory Tiffani RAE Facility:[facility] [place] Start: 03-23-2023 End: 03-23-2023 Patient encounter procedure Kory RAE [facility] [employer] Start: 12-09-2022 End: 12-09-2022 ambulatory Henrique Mckeon Other [facility] Other Start: 12-09-2022 Telephone encounter Henrique Mckeon [facility] Start: 12-05-2022 End: 12-05-2022 ambulatory Henrique Mckeon Other [facility] Other Start: 12-05-2022 Telephone encounter Henrique Mckeon [facility] Start: 12-04-2022 End: 12-04-2022 ambulatory Henrique Mckeon Other [facility] Other Start: 12-04-2022 Office outpatient vi sit 15 minutes Henrique Mckeon [facility] Start: 07-25-2022 End: 07-25-2022 ambulatory Henrique Mckeon Other [facility] Other Start: 07-25-2022 Encounter for genera l adult medical examination without abnormal findings Henrique Mckeon [facility] Start: 07-25-2022 Periodic preventive med est patient 40-64yrs Henrique Mckeon [facility] Start: 07-21-2022 Annual wellness visit Henrique Mckeon Other [facility] Other Start: 12-06-2020 End: 12-07-[address] HENRIQUE MCKEON Facility:[facility] Start: 09-24-2020 End: 02-07-[address] MORGAN LISTED REQUEST Facility: Procedures Date Procedure Procedure Detail Performing Clinician Start: 11-08-2024 Plain X-ray of right shoulder Henrique Mckeon DO Work Phone: Start: 05-20-2023 H/O: vasectomy Kory R BUTCH Start: 04-28-2023 Vasectomy Kory WA TERS Procedure on back Kory WA TERS Procedure on femur Kory W ATERS Plan of Treatment Date Care Activity Detail Author Start: 02-17-2025 [facility] Start: 11-08-2024 Plain X-ray of right shoulder XR shoulder RT min 2V* [facility] Start: 11-08-2024 XR Shoulder - right Views [facility] Start: 11-08-2024 Patient referral [facility] Work Phone: Comprehensive metabo lic 2000 panel - Serum or Plasma [facility] Patient referral [facility] Work Phone: US Heart Transthoracic [facility] XR Cervical spine Vi ews W flexion and W extension [facility] XR Chest 2 Views [facility] - [facility] Immunizations Immunization Date Immunization Notes Care Provider Fa cility 06-26-2021 COVID-19 Vaccine Pfi zer - Documentation Purposes Only Henrique Mckeon Other [facility] 10-16-2020 COVID-19 Vaccine Pfi zer - Documentation Purposes Only Henrique Mckeon Other [facility] 09-24-2020 COVID-19 Vaccine Pfi zer - Documentation Purposes Only Henrique Mckeon Other [facility] Payers Date Payer Category Payer Self-pay 1975 Unknown [id number] [id number] 1975 Unknown [id number] 2.16.8 [id number] 1977 Unknown [id number] 2.16.8 [id number] 1977 Unknown [id number] 2.16.8 [id number] 1977 Unknown [id number] 2.16.8 [id number] 1977 Unknown [id number] 2.16.8 [id number] 1977 Unknown [id number] 2.16.8 [id number] 1959 Private Health Insurance [id number] 1957 Self-pay [id number] Unknown [id number] [id number] [id number] Unknown [id number] 2.16.8 [id number] Social History Date Type Detail Facility Unknown if ever smoked [facility] Other Sex Assigned At [facility] Tobacco smoking status No Smokin g Status Entered [facility] Start: 05-20-2023 End: 10-28-2024 Tobacco smoking status Never smoked tobacco (finding) [facility] Tobacco smoking status Never [facility] Start: 1975 Sex Assigned At Male F [facility] Start: 09-30-2024 End: 12-15-2024 Sex Male (finding) [facility] Functional Status Date Assessment Result Facility 05-20-2023 Functional Status N/A [facility] 03-23-2023 Functional Status N/A [facility] Clinical Notes 07-25-2022 to 12-15-2024 Note Date & Type Note Facility 12-15-2024 Evaluation note Diagnosis Onset Date Resolution Calcific tendinitis of right shoulder acute December 15, 2024 7:51am Shoulder pain, right acute December 15, 2024 7:51am Atrial fibrillation acute Augus t 2024 8:34am Dyspnea acute February 17, 025 8:34am Elevated BP without diagnosis of hypertension acute February 17 8:34am [facility] Work Phone: 1(508) 416-638206-12-2025 Evaluation note* Diagnosis Onset Date Resolution Status Admit Date Calcific tendinitis of right shoulder acute December 15, 2024 7:51am Shoulder pain, right deleted December 15, 2024 7:51am Atrial fibrillation acute Augus t 2024 8:34am Dyspnea acute February 17, 2 025 8:34am Elevated BP without diagnosi s of hypertension acute February 17 8:34am [facility] Work Phone: 1(550) 415-583003-28-2025 Evaluation note* Diagnosis Onset Date Resolution Status [...] pain, right acute November 08, 2024 3:55pm [facility] Work Phone: 1(919) 270-183903-28-2025 Evaluation note* Diagnosis Onset Date Resolution Status [...] pain, right acute November 10, 2024 8:17am [facility] Work Phone: 1(919) 540-923903-28-2025 Evaluation note* Diagnosis Onset Date Resolution Status [...] pain, right acute December 15, 2024 7:51am [facility] Work Phone: 1(850) 876-328502-22-2024 Evaluation + Plan note Diagnostic Tests Pending * Semen Analysis Post Vasectomy 08/27/23 * Sperm Morphology 08/27/23 [facility]01-10-2024 Evaluation note* Encounter Date Diagnosis Assessment Notes Treatment Notes Treatment Clinical Notes Jul, Situational anxiety (ICD-10 - F41.8) [facility] Other 11-21-2023 Evaluation + Plan note Diagnostic Tests Pending * Semen Analysis Post Vasectomy 05/26/23 * Sperm Morphology 05/26/23 [facility]11-15-2023 Evaluation + Plan note Diagnostic Tests Pending * Semen Analysis Post Vasectomy 05/20/23 * Semen Analysis Post Vasectomy 05/20/23 Future Scheduled Tests Laboratory* Semen Analysis Post Vasectomy 05/20/23 * Semen Analysis Post Vasectomy 05/20/23 [facility] Jayne 11-15-2023 Evaluation note* Encounter Date Diagnosis [...] landing. Read, listen to music, deep/slow breathing [facility] Other 11-15-2023 Hospital Discharge instructions Patient Education [...] provider. Document Revised: 11/26/2020 Document Reviewed: 11/26/2020 [employer] Patient Education 2022 [employer]. Follow Up Care 05/06/2023 09:52:46 With:BUTCH OROZCO, Kory Nixon, URL Address: [facility] [address] , [place] [address]- When: Unknown [facility]ne 10-24-2023 Note [id number] Hospital Discharge instructions Patient Education 04/28/2023 [...] RAE Address: [facility] [address] [place] [address]- Business (1) When:05/12/2023 09:47:09 [facility]09-18-2023 NoteUrology Vasectomy Vasectomy is a procedure in [...] including vitamins, herbs, eye drops, creams, and juhx-szj-ujrqzaq medicines. ? Any problems you or family [...] tells you to take them. ? Taking hruq-gwz-kqgttcy medicines, vitamins, herbs, and supplements. ? You [...] being released during ej (more content not included)...[facility]09-18-2023 Hospital Discharge instructions Patient Education 03/23/2023 [...] including vitamins, herbs, eye drops, creams, and flra-eaq-frwbnci medicines. Any problems you or family members [...] provider tells you to take them. ?Taking xslg-hvi-qznuqyt medicines, vitamins, herbs, and supplements. You may [...] provider. Document Revised: 11/08/2020 Document Reviewed: 11/08/2020 [employer] Patient Education 2022 [employer]. Follow Up Care 12/30/2022 13:05:02 With:BUTCH OROZCO, Kory Nixon, URL Address: [facility] [address], [place] [address]- [phone] When: Unknown Comments:Sched Vasectomy [facility] 06-06-2023 Evaluation note* Encounter Date Diagnosis Assessment Notes Treatment Notes Treatment Clinical Notes Dec, Recurrent oral herpes simplex (ICD-10 - B00.2) [facility] Other 06-02-2023 Evaluation note* Encounter Date Diagnosis Assessment Notes Treatment Notes Treatment Clinical Notes Dec, Colon cancer screening (ICD-10 - Z12.11) [facility] [employer] Other 06-01-2023 Evaluation note* Encounter Date Diagnosis [...] take extra dose for prodrome of tingling/burning [facility] Other 01-20-2023 Evaluation note* Encounter Date Diagnosis [...] office to have BP checked any time [facility] [employer] Other Evaluation + Plan note Future Appointments Appointment Date:04/22/2023 09:00:00 AM Scheduled Provider: Location:[facility] Appointment Type:Urology CALL PAT FT Appointment Date:04/28/2023 09:00:00 AM Scheduled Provider: Location:[facility] Appointment Type:Urology FT Appointment Date:05/15/2023 11:00:00 AM Scheduled Provider:Kory RAE MD Location:[facility] Appointment Type:URO Office Visit [facility] evaluation + Plan note Future Appointments Appointment Date:05/15/2023 11:00:00 AM Scheduled Provider:Kory RAE MD Location:[facility] Appointment Type:[facility] [employer] Other Evaluation noteNo assessment information available [facility] Work Phone: Evaluation note* Diagnosis Onset Date Resolution Status Acute bronchitis due to other specified organisms acute Productive cough acute [facility] Work Phone: Evaluayqdo note* Diagnosis Onset Date Resolution Status Admit Date Neck pain acute September 30 9:54am Shoulder pain, right acute Noe h 2024 9:54am Wellness examination acute Noe h 2024 9:54am Screening for colon cancer noneactiv e September 30, 2024 9:54am [facility] Work Phone: History general Narrative - Reported* Type Description Date Medical History CARLIN (generalized anxiety disorde r) Medical History Wellness examination Medical History Herpesviral vesicular dermatitis Medical History Lumbar spondylosis Medical History 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 Surgical History back surgery Surgical History femur shattered Surgical History LUMBAR DISECTOMY 03/2000 Surgical History ORIF RIGHT FEMUR 2004 Hospitalization History see above [facility] Other History general Narrative - Reported* Type [...] RIGHT FEMUR 2004 Hospitalization History see above [facility] Other Hospital course Narrative No data available for this section [facility] Hospital Discharge instructions No data available for this section [facility] No data available for this section [facility] reason for referral (narrative)No reason for referral information availableUc Health Work Phone: Summary Purpose Family History Relationship [...] m Calcific tendinitis of right shoulder Ma 2024 8:17am Shoulder pain, right November 10, [...] 8:17a m Calcific tendinitis of right shoulder Ju ne 2024 7:51am Shoulder pain, right December 15, 2024 7:5 1am Chief Complaint Admit Date 4-5 WEEKS December 15, 2024 7:51 am cough/SOB February 17, 2025 8: 34am Reason for Visit Admit Date Calcific tendinitis of right shoulder Ju ne 2024 7:51am Shoulder pain, right December [...] DATE CREATED AUTHOR AUTHOR'S ORGANIZ ATION 09/04/2023 [facility] DATE CREATED AUTHOR AUTHOR'S ORGANIZ ATION 11/11/2024 [facility] REASON FOR VISIT (unrecogniz ed [...] Status: Inactive Member Role Status Dates Henrique Ball , DO Primary Care Provide r, Attending Provider Active Start: September 30, 2024 End: September 30, 2024 Team Status: Inactive Member Role Status Dates Henrique Mike , DO Primary Care Provider Active Start: November [...] Member Role Status Dates Henrique Mckeon , DO Primary Care Provider Active Start: November 10, 2024 End: November 10, 2024 Russel Waldron MD Attending Provider Active Star t: November 10, 2024 End: November 10, 2024 Team Status: Inactive Member Role Status Aj Mckeon , DO Primary Care Provider Active Start: December 15, 2024 End: December 15, 2024 Russel Waldron MD Attending Provider Active Star t: December 15, 2024 End: December 15, 2024 Team Status: Inactive Member Role Status Aj Mckeon , DO Primary Care Provider Active Start: February 17, 2025 End: February 17, 2025 Henrique Mckeon , DO Attending Provider Active Sta rt: February 17, 2025 End: February 17, 2025 Team Status: Active Member Role Status Aj Henrique Mckeon , DO Primary Care Provider Active Start: February 17, 2025 Henrique Mike , DO Attending Provider Active Sta rt: February 17, 2025 Team Status: Active Member Role Status Aj Duenas Mike , DO Primary Care Provider Active Start: February 17, 2025 Henrique Mckeon , DO Other Provider Active Start: February 17, 2025 Alejandra Andrew MD Attending Provider Active Sta rt: February 17, [...] BE BASED ON THE PRIMARY CLINICAL RECORDS. [facility], [facility]. provides no warranty or guarantee of the accuracy or completeness of information in this document.
[2025-02-18] MEDS: OXYCODONE HCL 5 MG TABLET PO (05:58)
[2025-02-18 08:18] LABS: Cholesterol 151 mg/dL (<=200); HDL Cholesterol 44 mg/dL (40-60); Triglycerides 95 mg/dL (<=150); VLDL CHOLESTEROL 19.0 mg/dL
[2025-02-18 08:26] LABS: Thyroid Stimulating Hormone 2.233 uIU/mL (0.358-3.740)
[2025-02-18 08:30] LABS: SARS-CoV-2 Ag NEGATIVE (NEGATIVE)
[2025-02-18] MEDS: POTASSIUM CHLORIDE 10 MEQ ER TABLET PO (08:34)
[2025-02-18] MEDS: CARVEDILOL 3.125 MG TABLET PO (08:34)
[2025-02-18] MEDS: FUROSEMIDE 20 MG/2 ML VIAL IVP ×2 (08:34→13:40)
--- NOTE | 2025-02-18 08:38 | PM.HP ---
HPI H&P: HPI History of Present Illness Chief complaint: CHEST PAIN, CHEST PAIN R/O ACUTE MYOCARDIAL INFARC Narrative: Mr. Moore is a 49-year-old gentleman who came in with persistent cough, shortness of breath and chest pain. Patient has had cough for 3 months. Moist. Initially was a productive but now it is a dry. No fever or chills. Patient also reported having progressive shortness of breath and dyspnea on exertion. Used to play pickle ball for 3 hours without any trouble and now he cannot play for more than 20 minutes. He cannot go up a flight of stairs without needing to stop and rest. In addition patient reported having chest discomfort. Mostly on the left side. Mostly when coughing. Radiating to the back and left arm. No abdominal pain nausea or vomiting. No fever or chills. No diarrhea. Opioid HPI Opioid Management Most Recent Pain and Opioid Data: Last Pain Scale 10 Today, 08:00 Last Pain Assessment Today, 06:00 Last ED Pain Assessment Today, 00:39 Last MAR Pain Assessment Today, 05:58 Last ORT Total Score 0 Today, 05:44 Last ORT Risk Category Low Risk Today, 05:44 Review of Systems ROS Status of ROS 10 or more systems reviewed and unremarkable except as noted in history and below PFSH PFSH Social History Highest level of school completed/degree received: high school graduate Little interest or pleasure in doing things: not at all Feeling down, depressed, or hopeless: not at all Meds Home Medications and Allergies Home Medications ?Medication ?Instructions ?Recorded ?Confirmed ?Type apixaban 5 mg tablet (Eliquis) 5 mg PO BID 02/17/25 02/17/25 History carvedilol 3.125 mg tablet 3.125 mg PO Q12H 02/17/25 02/18/25 History Allergies Allergy/AdvReac Type Severity Reaction Status Date / Time No Known Drug Allergies Allergy Verified 02/17/25 23:25 Exam Narrative Exam Narrative: [pt is awake and alert. oriented to place, time and person HEENT: [place] conjunctiva and NL buccal mucosa Neck: Supple, no tenderness Endocrine: No Thyromegaly. Vascular: No JVD or carotid bruit. Lymphatic: No cervical lymphadenopathy. Chest: Bilateral wheezing, rhonchi and crackles Heart IRRR, no extra sound or murmur. Abd: Soft, no tenderness, no rebound and no rigidity. Increase abd girth therefore clinically I could not exclude the possibility of intra abd mass or organomegaly. LE: No cyanosis or clubbing, no varices or edema. Neuro: A A O. Nl speech, comprehension and attention. Nl and symetrical motor and tone examination through out. []] Constitutional Vital Signs, click to edit/add: Last Vital Signs Temp 97.9 F 02/18/25 08:00 Pulse 66 02/18/25 08:11 Resp 16 02/18/25 05:44 BP 119/70 02/18/25 08:11 Pulse Ox 92 L 02/18/25 05:44 O2 Del Method Room Air 02/18/25 08:11 Results Labs Labs: Short CBC 02/17/25 Range/Units 23:35 WBC 11.8 H (4.0-11.0) 10^3/uL Hgb 15.7 (14.0-18.0) g/dL Hct 44.0 (42.0-54.0) % Plt Count 274 (150-450) 10^3/uL BMP 02/17/25 23:35 Sodium 139 Potassium 4.2 Chloride 103 Carbon Dioxide 27.8 BUN 15.0 Creatinine 0.93 Glucose 102 Calcium 9.2 Assessment and Plan Assessment and Plan (1) Chest pain, rule out acute myocardial infarction: (2) Atrial fibrillation: (3) Bronchospasm: (4) Acute diastolic heart failure: Plan Newly diagnosed atrial fibrillation associated with a degree of diastolic heart failure. Rate is controlled. [id number] score is 0. Patient does not qualify for full dose anticoagulation I would discontinue Eliquis and start him on aspirin daily Echocardiogram rule out valvular disease or cardiomyopathy Rate controlled. Patient was started on Coreg by his primary care doctor. Switch to calcium cheli due to bronchospasm and wheezing. Requested TSH which came back normal. Consideration for anti arrhythmia if he does not convert. Cough for 3 months, wheezing or rhonchi on chest x-ray CAT scan showed bilateral interstitial marking. Suspect interstitial edema. Could not exclude the possibility of infectious process Requested RSV, influenza AMB, COVID, Legionella and mycoplasma Start the patient on albuterol, Atrovent, Decadron Start the patient on Zithromax ceftriaxone for suspicion of community-acquired pneumonia Ultimately, if he continues to have respiratory symptoms he may need to have a PFT. He may need to have CAT scan of the chest with thin cuts to rule out interstitial lung disease Chest pain and discomfort. Mostly with the coughing. Radiation to the back and left shoulder. Thus far troponin is negative CT of the chest negative for PE. No pneumothorax or dissection. I suspect that his chest pain and discomfort are related to his cough and respiratory status. No risk factors for coronary artery disease Monitor chest pain and discomfort intensity over the next several days with the aforementioned treatment. At some point patient may need to have stress test to rule out underlying coronary artery disease. Continue aspirin for now. Avoid beta-cheli due to bronchospasm.
[2025-02-18] MEDS: DEXAMETHASONE SOD PHOS 10 MG/ML VIAL IV (09:00)
[2025-02-18] MEDS: OXYCODONE HCL/ACETAMINOPHEN 5MG/325MG 2 TAB PO (09:00)
[2025-02-18] MEDS: ENOXAPARIN SODIUM 40 MG/0.4 ML SYRINGE SUBQ (09:00)
[2025-02-18] MEDS: ASPIRIN 81 MG TABLET.DR 162 MG PO (09:01)
[2025-02-18] MEDS: AZITHROMYCIN 500 MG in 0.9 % SODIUM CHLORIDE 250 ML 250 MG IV (09:01)
[2025-02-18] MEDS: IPRATROPIUM/ALBUTEROL SULFATE 3 ML AMPUL.NEB IH ×3 (09:28→20:55)
[2025-02-18] MEDS: DILTIAZEM HCL 60 MG TABLET 30 MG PO ×3 (09:55→23:29)
[2025-02-18] MEDS: POTASSIUM CHLORIDE 10 MEQ ER TABLET 20 MEQ PO (17:01)
[2025-02-18] MEDS: DEXAMETHASONE SOD PHOS 4 MG/ML VIAL IV ×2 (17:01→23:30)
[2025-02-18] MEDS: FUROSEMIDE 40 MG/4 ML VIAL IVP (20:12)
[2025-02-19] VITALS (12 sets, daily range): BP systolic 143–148; BP diastolic 79–94; PULSE 81–154; TEMP 36.4–36.5; O2SAT 90–97
[2025-02-19] MEDS: DILTIAZEM HCL 60 MG TABLET 30 MG PO (06:06)
[2025-02-19 06:39] LABS: Anion Gap 16.0; Blood Urea Nitrogen 20.0 mg/dL (7.0-18.0); Calcium 9.3 mg/dL (8.5-10.1); Carbon Dioxide 26.3 mmol/L (21.0-32.0); Chloride 103 mmol/L (98-107); Estimated GFR (African America >60 (>=60 mL/min/1.73m^2); Estimated GFR (Non-African Ame >60 (>=60 mL/min/1.73m^2); Glucose 150 mg/dL (74-106); Potassium 4.3 mmol/L (3.5-5.1); Sodium 141 mmol/L (136-145)
[2025-02-19] MEDS: IPRATROPIUM/ALBUTEROL SULFATE 3 ML AMPUL.NEB IH (08:25)
--- NOTE | 2025-02-19 08:28 | RESP.RT ---
decreased to 1 LPM
[2025-02-19] MEDS: 0.9 % SODIUM CHLORIDE 250 ML 10 ML IV (08:53)
[2025-02-19] MEDS: DEXAMETHASONE SOD PHOS 4 MG/ML VIAL IV (08:54)
[2025-02-19] MEDS: ENOXAPARIN SODIUM 40 MG/0.4 ML SYRINGE SUBQ (08:54)
[2025-02-19] MEDS: ASPIRIN 81 MG TABLET.DR 162 MG PO (08:54)
[2025-02-19] MEDS: AZITHROMYCIN 500 MG in 0.9 % SODIUM CHLORIDE 250 ML 250 MG IV (08:54)
--- NOTE | 2025-02-19 10:01 | P.DS_ITS ---
DS: Providers Provider Date of admission: 02/18/25 05:20 Primary care physician: Henrique Mckeon DO DS: Diagnosis Discharge Diagnosis (1) Chest pain, rule out acute myocardial infarction: (2) Atrial fibrillation: (3) Bronchospasm: (4) Acute diastolic heart failure: Plan As listed above and others that are not listed DS: Summary Hospital Course Hospital Course: Ms. glasgow is a 49-year-old gentleman who came in with 30 days history of cough, shortness of breath and dyspnea on exertion. He was found to have the following: Newly diagnosed atrial fibrillation associated with a degree of diastolic heart failure. Rate is controlled. [id number] score is 0. Patient does not qualify for full dose anticoagulation I would discontinue Eliquis and start him on aspirin daily Echocardiogram rule out valvular disease or cardiomyopathy Rate controlled. Patient was started on Coreg by his primary care doctor. Switch to calcium cheli due to bronchospasm and wheezing. Requested TSH which came back normal. I recommend patient to be seen by cardiology team. I anticipate that patient may benefit from cardioversion. ADÁN and cardioversion could not be done here at [place]. I started patient on Lovenox 1 mg/kg twice a day I discussed his case with the fundraising officer Dr. Aviles at [facility] He is in agreement that the patient would likely require cardioversion, with and without TTE He is in agreement to see patient in consultation at [facility] I will discuss his case with hospitalist at [facility] and arrange for transportation and transfer. Acute, subacute diastolic heart failure cough for 3 months, wheezing or rhonchi on chest x-ray CAT scan showed bilateral interstitial marking. Suspect interstitial edema. Could not exclude the possibility of infectious process Requested RSV, influenza AMB, COVID, Legionella and mycoplasma. RSV, influenza and COVID are negative. Legionella and mycoplasma are pending Start the patient on albuterol, Atrovent, Decadron Start the patient on Zithromax ceftriaxone for suspicion of community-acquired pneumonia Ultimately, if he continues to have respiratory symptoms he may need to have a PFT. He may need to have CAT scan of the chest with thin cuts to rule out interstitial lung disease Significant improvement of his shortness of breath and dyspnea sensation over the last 24 hours, likely due to the use of diuretics Echocardiogram to be completed to rule out cardiomyopathy or valvular disease. This could be done at 5 months Chest pain and discomfort. Mostly with the coughing. Radiation to the back and left shoulder. Thus far troponin is negative CT of the chest negative for PE. No pneumothorax or dissection. I suspect that his chest pain and discomfort are related to his cough and respiratory status. No risk factors for coronary artery disease Monitor chest pain and discomfort intensity over the next several days with the aforementioned treatment. At some point patient may need to have stress test to rule out underlying coronary artery disease. This could be evaluated and addressed at filings Continue aspirin for now. Avoid beta-cheli due to bronchospasm. Time Spent with Patient Time attestation: Total time spent providing and/or coordinating discharge services: Exam Narrative Exam Narrative: [pt is awake and alert. oriented to place, time and person HEENT: [place] conjunctiva and NL buccal mucosa Neck: Supple, no tenderness Endocrine: No Thyromegaly. Vascular: No JVD or carotid bruit. Lymphatic: No cervical lymphadenopathy. Chest: Stable improvement of her bilateral wheezing or rhonchi compared to yesterday. Heart IRRR, no extra sound or murmur. Abd: Soft, no tenderness, no rebound and no rigidity. Increase abd girth therefore clinically I could not exclude the possibility of intra abd mass or o rganomegaly. LE: No cyanosis or clubbing, no varices or edema. Neuro: A A O. Nl speech, comprehension and attention. Nl and symetrical motor and tone examination through out. []] Constitutional Vital Signs, click to edit/add: Last Vital Signs Temp 97.6 F 02/19/25 08:40 Pulse 101 H 02/19/25 08:40 Resp 20 02/19/25 08:40 BP 148/89 H 02/19/25 08:40 Pulse Ox 90 L 02/19/25 08:40 O2 Del Method Nasal Cannula 02/19/25 08:40 O2 Flow Rate 2 02/19/25 08:40 DS: Data Data Completed and Pending Labs on day of discharge: Labs from last 24 hours 02/19/25 06:17 Sodium 141 Potassium 4.3 Chloride 103 Carbon Dioxide 26.3 Anion Gap 16.0 BUN 20.0 H Creatinine 0.96 Est GFR ( Amer) >60 Est GFR (Non-Af Amer) >60 BUN/Creatinine Ratio 20.8 Glucose 150 H Calcium 9.3 Discharge Plan Discharge Disposition: Home, Self-Care Discharge Medications: New Azithromycin [Zithromax] 500 MG 0.9 % Sodium Chloride [Sodium Chloride 0.9% 250 ml] 250 ML 250 mls/hr IV Q24H Ordered By: Jase Roy MD Last Taken: 02/19/25 08:54 250 mls/hr ipratropium-albuterol 0.5 mg-3 mg(2.5 mg base)/3 mL Solution For Nebulization 3 ml inhalation RTTID PRN (Reason: wheezing) Qty: 0 0RF aspirin 81 mg Tablet,Delayed Release (Dr/Ec) 162 mg PO QD Qty: 0 0RF diltiazem HCl 120 mg Capsule,Extended Release 24hr 120 mg PO QD Qty: 0 0RF enoxaparin 40 mg/0.4 mL Syringe 100 mg subcut BID Qty: 0 0RF torsemide 10 mg tablet 10 mg PO QAM Qty: 30 0RF potassium chloride 15 mEq tablet extended release 15 meq PO DAILY Qty: 30 0RF Discontinued carvedilol 3.125 mg tablet 3.125 mg PO Q12H Eliquis 5 mg tablet 5 mg PO BID Print Language: [place] Forms: Portal Instructions
[2025-02-19] MEDS: POTASSIUM CHLORIDE 10 MEQ ER TABLET 20 MEQ PO (10:12)
[2025-02-19] MEDS: ENOXAPARIN SODIUM 60 MG/0.6 ML SYRINGE SUBQ (10:12)
[2025-02-19] MEDS: FUROSEMIDE 40 MG/4 ML VIAL IVP (10:12)
[2025-02-19] MEDS: DILTIAZEM HCL 120 MG CAP.ER.24H PO (10:12)
--- NOTE | 2025-02-19 10:29 | P.EN_ITS ---
Event Note Event Note: I discussed this case with her call taker Dr. Aviles. He is in agreement that the patient will likely require cardioversion with or without ADÁN. I discussed his case with my colleague Dr. Bahena He accepted to admit patient at [facility] under his service to facilitate cardiology evaluation and intervention.
--- NOTE | 2025-02-19 10:29 | PM.EN ---
Event Note Event Note: I discussed this case with her trailers and motor homes salesperson Dr. Aviles. He is in agreement that the patient will likely require cardioversion with or without ADÁN. I discussed his case with my colleague Dr. Bahena He accepted to admit patient at [facility] under his service to facilitate cardiology evaluation and intervention.
--- NOTE | 2025-02-19 13:57 | PC.NURSE ---
Seismic Observer called [facility] and gave report to LISS Armstrong
--- OUTSIDE RECORDS SUMMARY | 2025-02-20 07:28 | XMS_ITS | Clinical Summary ---
Author Organization [facility] Address [address] [place] [address] Care Team Providers [place] Worker Name Role Phone Unavailable Primary Care Provider Unavailabl e Allergies No known active allergies Medications No known medications Active Problems No known active problems Family History Medical History Relation Name Comments Hypertension Other Migrated Family History Melanoma Neg Hx Relation Name Status Comments Other Social History Tobacco Use Types Packs/Day Years Used Date Smoking Tobacco: Never Smokeless Tobacco: Never Tobacco Cessation:Counseling Given: Not Answered Sex and Gender Information Value Date Recorded Sex Assigned at Not on file Legal Sex Male 6:37 PM EDT Gender Identity Not on file Sexual Orientation Not on file Plan of Treatment Health Maintenance Due Date Last Done Comments CT Colonography 1977 Colonoscopy 1977 Colorectal Cancer Screening 1977 FIT-DNA 1977 FIT 1977 FOBT 1977 Sigmoidoscopy 1977 Influenza Vaccine (#1) 2025 Insurance [employer]
--- OUTSIDE RECORDS SUMMARY | 2025-02-20 07:29 | XMS_ITS | CCD ---
Author Organization [facility] CliniSyga Care Team Providers Care [employer] Attendant Name Role Phone DR HENRIQUE MCKEON Admitting Unavailable BALL, DR MOCTEZUMA Attending Unavailable BALL, DR MOCTEZUMA Primary Care Unavailable BALL, DR MOCTEZUMA Consulting Unavailable WEST, DR JEREMIAS Knight Consulting Unavailable REQUEST, DR MORGAN LISTED Admitting Unavaila ble REQUEST, DR MORGAN LISTED Attending Unavaila ble REQUEST, NONE LISTED Consulting Unavaila ble BALL, DR MOCTEZUMA Primary Care Unavailable Henrique Mckeon Unavailable HENRIQUE MCKEON Primary Care Physician [phone] BUTCH, Kory Nixon Attending Unavailable RAE, Kory R Attending Unavailable RAE, Kory R Referring Unavailable RAE, Kory R Admitting Unavailable RAE, Kory R Admitting Unavailable RAE, Kory R Attending Unavailable RAE, Kory R Admitting Unavailable RAE, Kory R Attending Unavailable RAE, Kory R Attending Unavailable RAE, Kory R Attending Unavailable Henrique Mckeon DO Primary Care Provider Russel Toro MD Attending Provider Henrique Mckeon DO Primary Care Provider [phone] Russel Waldron MD Attending Provider Henrique Mckeon DO Attending Provider [phone] Henrique Mckeon DO Other Provider Alejandra Andrew MD Attending Provider Henrique Mckeon Admitting Unavailable Mike, Henrique Attending Unavailable Henrique Mckeon Primary Care Unavailable Russel Toro Admitting Unavailable Russel Toro Attending Unavailable Henrique Mckeon Primary Care Unavailable FringAniceto enciso Admitting Unavailable Frings, Aniceto Attending Unavailable Henrique Mckeon Primary Care Unavailable Abhay Terrazas Consulting Unavailable Allergies Allergy Classification Reported Allergen(s) Allergy Type Date of Onset Reaction(s) Facility (1 source) No Known Medication Allergies; Translations: [No Known Medication Allergies] Propensity to adverse reactions (disorder) [facility] Repository Medications Current Medications Medication Drug Class(es) [...] day(s), # 10 cap(s), Refills(s) 0, Pharmacy: [facility]/pharmacy #[id number], 190, cm, 03/23/23 12:39:00 EDT, Height/Length Dosing, 88, kg, 03/23/23 12:39:00 EDT, Weight Dosing Start Date: 03/23/23 Stop Date: 03/28/23 Status: Ordered diazePAM 10 mg oral tablet (2 sources) Benzodiazepine Start: 03-23-2023 Valium 10 mg Tab 10 mg = 1 tab(s), Oral, Once, take one hour prior to procedure, # 1 tab(s), Refills(s) 0, Pharmacy: [facility]/pharmacy #[id number], 190, cm, 03/23/23 12:39:00 EDT, Height/Length [...] Start: 05-20-2023 take 1 tablet by guillermo once daily as needed LORazepam 0.5 MG [...] tablet Orally Once a day Active Problems Active Problems Problem Classification Problem Date Documented [...] Dyspnea; Translations: [Dyspnea, unspecified] 02-17-2025 Episodic Other lower respiratory disease (1 source) Shortness of breath; Translations: [Shortness of breath] Onset: 02-17-2025 Episodic Other nervous system disorders (5 sources) Chronic pain; Translations: [Other chronic pain] 11-08-2024 Chronic Other nervous system disorders (4 sources) Other chronic pain; Translations: [Other chronic pain] 11-08-2024 Chronic Other screening for suspected conditions (not mental [...] 1 infection; Translations: [Herpesviral infection, unspecified] Episodic Past or Other Problems Problem Classification Problem Date Documented Da te Episodic/Chronic Other non-traumatic joint disorders (20 sources) Pain in right shoulder; Translations: [Right shoulder pain] Onset: 11-08-2024 09-30-2024 Episodic Results Test Name Value Interpretation Reference Range Facility Basophils Auto (Bld) [#/Vol] Ordered By: Henrique Mckeon on 02-17-2025 Basophils (Bld) [#/Vol] 0.1 10 3/uL 0.0-0.1 [facility] Basophils/100 WBC Auto (Bld) Ordered By: Henrique Mckeon on 02-17-2025 Basophils/100 WBC (Bld) 0.7 % 0.2-2.0 [facility] Eosinophils/100 WBC Auto (Bl d)Ordered By: Henrique Mckeon on 02-17-2025 Eosinophils/100 WBC (Bld) 1.8 % 0.9-7.0 [facility] Erythrocyte distribution wid th Auto (RBC) [Ratio]Ordered By: Henrique Mckeon on 02-17-2025 Erythrocyte distribution width (RBC) [Ratio] 12.1 % 11.0-15.0 [facility] FPG ECG *PCP OFFICE ONLY*on 02-17-2025 FPG ECG *PCP OFFICE ONLY* [facility] [place] [address] Electrocardiograph Report Signed Patient: Lamonte Moore MR#: [id number] 5 : 1975 Acct:[id number] Age/Sex: 49 / M ADM Date: 02/17/25 Loc: [facility] Room: Type: [facility] Attending Dr: Henrique Mckeon DO Ordering Provider: Henrique Mckeon DO Date of Service: 02/17/25 ECG/FPG ECG *PCP OFFICE ONLY*: R06.02 - Shortness of breath Copies to: Test Reason : Blood Pressure : */* mmHG Vent. Rate : 83 BPM Atrial Rate : * BPM P-R Int : * ms QRS Dur : 94 ms QT Int : 376 ms P-R-T Axes : * 52 26 degrees QTcB Int : 441 ms Atrial fibrillation Abnormal ECG Confirmed by Alejandra Andrew ([id number]) on 02/17/2025 12:57:47 PM Referred By: Electronically Signed By: Alejandra Andrew Transcribed By: MUS Signed By Alejandra Andrew MD 5 1257 Normal [facility] Hematocrit Auto (Bld) [Volum e fraction]Ordered By: Henrique Mckeon on 02-17-2025 Hematocrit (Bld) [Volume fraction] 44.0 % 42.0-54.0 [facility] Hemoglobin [Mass/volume] in BloodOrdered By: Henrique Mckeon on 02-17-2025 Hemoglobin (Bld) [Mass/Vol] 15.7 g/dL 14.0-18.0 [facility] Laboratory - Hematology and Cell countsOrdered By: Henrique Mckeon on 02-17-2025 Immature granulocytes/100 WBC (Bld) 0.3 % 0.0-0.5 [facility] Leukocytes [#/volume] correc ana for nucleated erythrocytes in Blood by Automated counOrdered By: Henrique Mckeon on 02-17-2025 WBC corrected for nucl RBC Auto (Bld) [#/Vol] 11.8 10 3/uL High 4.0-11.0 [facility] Lymphocytes Auto (Bld) [#/Vo l]Ordered By: Henrique Mckeon on 02-17-2025 Lymphocytes (Bld) [#/Vol] 3.1 10 3/uL 1.2-3.8 [facility] Lymphocytes/100 WBC Auto (Bl d)Ordered By: Henrique Mckeon on 02-17-2025 Lymphocytes/100 WBC (Bld) 26.4 % 20.5-60.0 [facility] MCH Auto (RBC) [Entitic mass ]Ordered By: Henrique Mckeon on 02-17-2025 MCH (RBC) [Entitic mass] 32.2 pg 25.9-34.0 [facility] MCHC Auto (RBC) [Mass/Vol]Or dered By: Henrique Mckeon on 02-17-2025 MCHC (RBC) [Mass/Vol] 35.7 g/dL High 29.9-35.2 [facility] MCV Auto (RBC) [Entitic vol] Ordered By: Henrique Mckeon on 02-17-2025 MCV (RBC) [Entitic vol] 90.3 fL 80.0-94.0 [facility] Monocytes Auto (Bld) [#/Vol] Ordered By: Henrique Mckeon on 02-17-2025 Monocytes (Bld) [#/Vol] 1.0 10 3/uL High 0.3-0.8 [facility] Monocytes/100 WBC Auto (Bld) Ordered By: Henrique Mckeon on 02-17-2025 Monocytes/100 WBC (Bld) 8.8 % 1.7-12.0 [facility] Neutrophils Auto (Bld) [#/Vo l]Ordered By: Henrique Mckeon on 02-17-2025 Neutrophils (Bld) [#/Vol] 7.3 10 3/uL High 1.4-6.5 [facility] Neutrophils/100 WBC Auto (Bl d)Ordered By: Henrique Mckeon on 02-17-2025 Neutrophils/100 WBC (Bld) 62.0 % 43.0-75.0 [facility] No Panel InformationOrdered By: Henrique Mckeon on 02-17-2025 Eosinophils # (Auto) 0.2 10 3/uL 0.0-0.7 [facility] Immature Granulocyte # (Auto) 0.03 10 3/uL 0.00-0.03 [facility] Platelet mean volume Auto (B ld) [Entitic vol]Ordered By: Henrique Mckeon on 02-17-2025 Platelet mean volume (Bld) [Entitic vol] 9.8 fL 9.5-13.5 [facility] Platelets Auto (Bld) [#/Vol] Ordered By: Henrique Mckeon on 02-17-2025 Platelets (Bld) [#/Vol] 274 10 3/uL 150-450 [facility] RBC Auto (Bld) [#/Vol]Ordere d By: Henrique Mckeon on 02-17-2025 RBC (Bld) [#/Vol] 4.87 10 6/uL 4.70-6.10 [facility] X-ray reportOrdered By: Chico Hidalgo on 11-08-2024 Study report [facility] [address] [place] [address] XRay Report Signed Patient: Lamonte Moore MR#: [id number] : 1975 Acct:[id number] Age/Sex: 49 / M ADM Date: 5 Loc: [facility] Room: Type: [facility] Attending Dr: Russel Toro MD [...] Hidalgo Jr, DO 11/08/242058 Signed By: 11/08/242099 [facility] XR shoulder RT min 2V*on XR shoulder RT min 2V* [facility] [address] [place] [address] XRay Report Signed Patient: Lamonte Moore MR#: [id number] 5 : 1975 Acct:[id number] Age/Sex: 49 / M ADM Date: 11/08/24 Loc: [facility] Room: Type: [facility] Attending Dr: Russel Toro MD [...] DO 11/08/242058 Signed By: 11/08/242099 Normal [facility] Basophils Auto (Bld) [#/Vol] on 09-30-2024 Basophils (Bld) [#/Vol] Automated basophil count 0.0-0.1 [facility] Basophils/100 WBC Auto (Bld) on 09-30-2024 Basophils/100 WBC (Bld) Automated basophil % 0.2-2.0 [facility] Cholesterol in LDL Calc [Mas s/Vol]on 09-30-2024 Cholesterol in LDL [Mass/Vol] Cholesterol in LDL [Mass/volume] in Serum or Plasma by calculation [facility] Comment on above: <100 mg/dl [id number] 0-129 mg/dl NEAR OR ABOVE [id number] mg/dl BORDERLINE CFPE004-357 mg/dl HIGH>190 mg/dl VERY HIGH Cholesterol in VLDL Calc [Ma ss/Vol]on 09-30-2024 Cholesterol in VLDL [Mass/Vol] Cholesterol in VLDL [Mass/volume] in Serum or Plasma by calculation [facility] Eosinophils/100 WBC Auto (Bl d)on 09-30-2024 Eosinophils/100 WBC (Bld) Automated eosinophil % 0.9-7.0 [facility] Erythrocyte distribution wid th Auto (RBC) [Ratio]on 09-30-2024 Erythrocyte distribution width (RBC) [Ratio] Erythrocyte distribution width [Ratio] by Automated count 11.0-15.0 [facility] Estimated glomerular filtrat ion rate (GFR) non- Americanon 09-30-2024 GFR/1.73 sq M.predicted among non-blacks MDRD (S/P/Bld) [Vol rate/Area] Estimated glomerular filtration rate (GFR) non- >=60 mL/min/1.73m 2 [facility] Globulin Calc (S) [Mass/Vol] on 09-30-2024 Globulin (S) [Mass/Vol] Serum globulin measurement by calculation (mass/volume) [facility] Hematocrit Auto (Bld) [Volum e fraction]on 09-30-2024 Hematocrit (Bld) [Volume fraction] Hematocrit [Volume Fraction] of Blood by Automated count 42.0-54.0 [facility] Hemoglobin [Mass/volume] in Bloodon 09-30-2024 Hemoglobin (Bld) [Mass/Vol] Hemoglobin [Mass/volume] in Blood 14.0-18.0 [facility] Laboratory - Chemistry and C hemistry - challengeon 09-30-2024 Albumin [Mass/Vol] 4.4 g/dL 3.4-5.0 [facility] ALP [Catalytic activity/Vol] 81 U/L 46-116 [facility] ALT [Catalytic activity/Vol] 29 U/L 16-63 [facility] AST [Catalytic activity/Vol] 17 U/L 15-37 [facility] Bilirubin [Mass/Vol] 0.9 mg/dL 0.2-1.0 [facility] Calcium [Mass/Vol] 9.3 mg/dL 8.5-10.1 [facility] Chloride [Moles/Vol] 104 mmol/L 98-107 [facility] Cholesterol [Mass/Vol] 177 mg/dL <=200 [facility] Cholesterol in HDL [Mass/Vol] 65 mg/dL High 40-60 [facility] Comment on above: > or =60 mg/dl - LOW CARDIOVASCULAR RISK<40 mg/dl - HIGH CARDIOVASCULAR RISK CO2 [Moles/Vol] 29.2 mmol/L 21.0-32.0 [facility] Creatinine [Mass/Vol] 1.00 mg/dL 0.70-1.30 [facility] GFR/1.73 sq M.predicted MDRD (S/P/Bld) [Vol rate/Area] mL/min/{1.73_m2} >=60 mL/min/1.73m 2 [facility] Glucose [Mass/Vol] 90 mg/dL 74-106 [facility] Potassium [Moles/Vol] 4.3 mmol/L 3.5-5.1 [facility] Protein [Mass/Vol] 7.9 g/dL 6.4-8.2 [facility] Sodium [Moles/Vol] 142 mmol/L 136-145 [facility] Triglyceride [Mass/Vol] 54 mg/dL <=150 [facility] Urea nitrogen [Mass/Vol] 16.0 mg/dL 7.0-18.0 [facility] Urea nitrogen/Creatinine [Mass ratio] 16.0 mg/mg [facility] Laboratory - Hematology and Cell countson 09-30-2024 Immature granulocytes/100 WBC (Bld) 0.3 % 0.0-0.5 [facility] Leukocytes [#/volume] correc ana for nucleated erythrocytes in Blood by Automated counon 09-30-2024 WBC corrected for nucl RBC Auto (Bld) [#/Vol] Leukocytes [#/volume] corrected for nucleated erythrocytes in Blood by Automated coun 4.0-11.0 [facility] Lymphocytes Auto (Bld) [#/Vo l]on 09-30-2024 Lymphocytes (Bld) [#/Vol] Lymphocytes [#/volume] in Blood by Automated count 1.2-3.8 [facility] Lymphocytes/100 WBC Auto (Bl d)on 09-30-2024 Lymphocytes/100 WBC (Bld) Lymphocytes/100 leukocytes in Blood by Automated count 20.5-60.0 [facility] MCH Auto (RBC) [Entitic mass ]on 09-30-2024 MCH (RBC) [Entitic mass] MCH [Entitic mass] by Automated count 25.9-34.0 [facility] MCHC Auto (RBC) [Mass/Vol]on 09-30-2024 MCHC (RBC) [Mass/Vol] MCHC [Mass/volume] by Automated count High 29.9-35.2 [facility] MCV Auto (RBC) [Entitic vol] on 09-30-2024 MCV (RBC) [Entitic vol] MCV [Entitic volume] by Automated count 80.0-94.0 [facility] Monocytes Auto (Bld) [#/Vol] on 09-30-2024 Monocytes (Bld) [#/Vol] Automated blood monocyte count 0.3-0.8 [facility] Monocytes/100 WBC Auto (Bld) on 09-30-2024 Monocytes/100 WBC (Bld) Automated monocyte % 1.7-12.0 [facility] Neutrophils Auto (Bld) [#/Vo l]on 09-30-2024 Neutrophils (Bld) [#/Vol] Neutrophils [#/volume] in Blood by Automated count 1.4-6.5 [facility] Neutrophils/100 WBC Auto (Bl d)on 09-30-2024 Neutrophils/100 WBC (Bld) Automated neutrophil % 43.0-75.0 [facility] No Panel Informationon 09-30 Eosinophils # (Auto) 0.4 10 3/uL 0.0-0.7 [facility] Immature Granulocyte # (Auto) 0.03 10 3/uL 0.00-0.03 [facility] Platelet mean volume Auto (B ld) [Entitic vol]on 09-30-2024 Platelet mean volume (Bld) [Entitic vol] Platelet mean volume [Entitic volume] in Blood by Automated count 9.5-13.5 [facility] Platelets Auto (Bld) [#/Vol] on 09-30-2024 Platelets (Bld) [#/Vol] Platelets [#/volume] in Blood by Automated count 150-450 [facility] RBC Auto (Bld) [#/Vol]on RBC (Bld) [#/Vol] Erythrocytes [#/volume] in Blood by Automated count 4.70-6.10 [facility] Serum or plasma albumin/glob ulin mass ratioon 09-30-2024 Albumin/Globulin [Mass ratio] Serum or plasma albumin/globulin mass ratio [facility] Serum or plasma anion gap de terminationon 09-30-2024 Anion gap [Moles/Vol] Serum or plasma anion gap determination [facility] Serum or plasma total choles terol/high density lipoprotein (HDL) cholesterol mass marie 09-30-2024 Cholesterol.total/Chol esterol in HDL [Mass ratio] Serum or plasma total cholesterol/high density lipoprotein (HDL) cholesterol mass rat [facility] Comment on above: 3.3 - 4.4 LOW RISK4. 4 - 7.1 AVERAGE RISK7.1 - 11.0 MODERATE RISK>11.0 HIGH RISK Semen Analysis PostVason Deana/Transport Prob No Problems Normal [facility] Comment on above: Performed By: #### 2 [id number], [id number] ####[facility] [address] [place] [address] Collect. Meth Masturbation Normal [facility] Comment on above: Performed By: #### 2 [id number], [id number] ####[facility] [address] [place] [address] Days Abstained Invalid Interpretation Code 2-5 [facility] Comment on above: Performed By: #### 2 [id number], [id number] ####[facility] [address] [place] [address] Post Vas Screen No Sperm Seen Normal <=0 [facility] Comment on above: Result Comment: A Co ncentration Technique is used to confirm any semen which is azospermic (no sperm seen). Performed By: #### 2 [id number], [id number] ####[place] [id number] Spec. Container Steril Container Normal Fis her [facility] Comment on above: Performed By: #### 2 [id number], [id number] ####[place] [id number] Spec. Temp 22 DegC Normal 20-37 [facility] Comment on above: Performed By: #### 2 [id number], [id number] ####[place] [id number] Sperm Morphon 09-01-2023 Sperm Morph No sperm identified (A concentration technique is used to evaluate this specimen). ICD10 Z30.9 Invalid Interpretation Code [facility] Comment on above: Other Comment: Order Added by Discern Expert. Sperm Morph No sperm identified (A concentration technique is used to evaluate this specimen). Invalid Interpretation Code [facility] Comment on above: Order Comment: Order Added by Discern Expert. Performed By: #### 2 [id number], [id number] ####[place] [id number] Semen Analysis PostVason Deana/Transport Prob No Problems Normal Fish [facility] Comment on above: Performed By: #### 2 [id number], [id number] ####[place] [id number] Collect. Meth Masturbation Normal [facility] Comment on above: Performed By: #### 2 [id number], [id number] ####[address] [address] Days Abstained 1 day(s) Low 2-5 [facility] Comment on above: Performed By: #### 2 [id number], [id number] ####[address] [address] Post Vas Screen Present Normal <=0 [facility] Comment on above: Result Comment: Rare Non-Motile Sperm Seen A Concentration Technique is used to confirm any semen which is azospermic (no sperm seen). Performed By: #### 2 [id number], [id number] ####[facility] [address] [place] [address] Spec. Container Steril Container Normal Fis [facility] Comment on above: Performed By: #### 2 [id number], [id number] ####[facility] [address] [place] [address] Spec. Temp 23 DegC Normal 20-37 [facility] Comment on above: Performed By: #### 2 [id number], [id number] ####[place] [address] [place] [address] Sperm Morphon 06-03-2023 Sperm Morph Rare unremarkable sperms present (concentration technique performed). Invalid Interpretation Code [facility] Comment on above: Other Comment: Order Added by Discern Expert. Order Comment: Order Added by Discern Expert. Performed By: #### 2 [id number], [id number] ####[address] [address] Ambulatory Visit Summaryon 1 07-20-2022 Ambulatory Visit [...] Where: [facility] [address] [place] [address]- You Need to Complete the Following Semen [...] hours. Spermi (more content not included)... Normal [facility] Patient Educationon 05-20-20 23 Patient Education Obstetrics [...] to pt. Two semen analyses ordered for [facility]. Follow-up With When Contact Information BUTCH OROZCO, Kory Nixon, URL [facility] [address], [place] [address]- Additional Instructions: PRN Patient Education Contraception Choices [...] Tobacco Use:. Never Smokeless Tobacco Use:., 05/20/2023 [facility] Comment on above: Result Comment: Elec tronically Signed By: Kory RAE MD\.br\Date and Time Signed: 05/20/23 10:28 EST\.br\Electronically Co-Signed By: Nery Huerta\.br\Date and Time Co-Signed: 05/20/23 10:27 EST Consent for Procedure/Surger yon 04-28-2023 Consent for Procedure/Surgery [id number] 120#1.00TIFF [facility] Consent for Treatmenton -2 Consent for Treatment [id number] [id number]#1.00TIFF [facility] IntraOperative Documentson 1 IntraOperative Documents [id number]#1.00TIFF [facility] Main OR Intraoperative Recor don 04-28-2023 Main OR Intraoperative Record IntraOp Document Type FTURO Summary Primary Physician: Kory RAE MD Finalized Date/Time: 04/28/23 09:52:52 Pt. Name: LAMONTE MOOREO.B./Sex: 1975 Male Med Rec #: [id number] Physician: Kory RAE MD Financial #: [id number] Pt. Type: O Room/Bed: / Admit/Disch: 04/28/23 08:13:18 - Institution: Case Times FTURO Entry 1 Patient Times In Room 04/28/23 09:07:00 Out Room 04/28/23 09:51:00 Procedure Times Start 04/28/23 09:10:00 Stop 04/28/23 09:45:00 Anesthesia Times Last Modified By: Jenny LEIJA, JAXSON, Kandi 04/28/23 09:46:48 Case Attendance FTURO Entry 1 Entry 2 Entry 3 Case Attendee Kory RAE MD RN, JORDIOR, [employer] Role Performed Surgeon - Primary Wired Sweatband Cutter - Primary Scrub - Primary Time In 04/28/23 09:07:00 04/28/23 09:07:00 04/28/23 09:07:00 Time Out 04/28/23 09:51:00 04/28/23 09:51:00 04/28/23 09:51:00 Procedure VASECTOMY LOCAL(.) VASECTOMY LOCAL(.) VASECTOMY LOCAL(.) Comments Last Modified By: Jenny LEIJA, CNOR, Jenny LEIJA, JORDIOR, Jenny LEIJA, JAXSON, Kandi 04/28/23 Kandi 04/28/23 Kandi 04/28/23 09:46:56 09:46:56 09:46:56 Surgical Procedures FTURO Entry 1 Procedure Description Procedure VASECTOMY LOCAL Modifiers . Surgeon Description VASECTOMY Primary Procedure Yes Primary Surgeon Kory RAE MD Start 04/28/23 09:10:00 Stop 04/28/23 09:45:00 Anesthesia Type Local Surgical Service Urology Wound Class 2 - Clean-Contaminated Last Modified By: Jenny LEIJA, Kandi PURI 04/28/23 09:47:08 General Case Data FTURO Pre-Care [...] JAXSON Alvarado RN, Ruthann 04/28/23 09:52 Normal [facility] Main OR Preoperative Recordo n 04-28-2023 Main OR Preoperative Record Holding Area Document Type FTURO Summary Primary Physician: Kory RAE MD Finalized Date/Time: 04/28/23 09:16:17 Pt. Name: LAMONTE MOOREO.B./Sex: 1975 Male Med Rec #: [id number] Physician: Kory RAE MD Financial #: [id number] Pt. Type: O Room/Bed: / Admit/Disch: 04/28/23 [...] Complaints of Pain: No Skin Integrity Dry, [place], Warm Vitals - EU Blood Pressure 143/88 Pulse 62 bpm Respirations 14 br/min SPO2 99 % Additional None RN Reviewed Yes Specimens Collected Last Modified By: JAXSON Alvarado RN, Ruthann 04/28/23 09:16:15 General Comments: 97.9 Finalized By: JAXSON Alvarado RN, Ruthann Document Signatures Signed By: Lea Menezes RN 04/28/23 08:36 JAXSON Alvarado RN, Ruthann 04/28/23 09:16 Normal [facility] Operative Reporton Operative Report Patient: LAMONTE MOORE [...] well and no complications were noted. Normal [facility] Comment on above: Result Comment: Elec tronically [...] to 2 weeks after your procedure. Normal [facility] Insurance Correspondenceon 1 Insurance Correspondence [id number] 79#1.00TIFF Normal [facility] Provider Letteron 03-23-2023 Provider Letter March 23, 2023 LAMONTE MOORE [address] [place] [phone] : 1975 To Whom It May Concern, [...] for 1 week after procedure -Will need hazardous materials driver for Valium -Shave site the night prior -50% of usual activity the day after -Will send script for Keflex 500mg BID x10 days, Bradford 325mg-5mg, and Valium 10mg to pharm on file. Discussed the medication side effects, and the patient will monitor closely for these, as well as for symptom improvement. If severe side effects occur, the medication should be stopped and the office notified. Follow-up With When Contact Information BUTCH OROZCO, Kory Nixon, URL [facility] [address], [place] [address]- [phone] Additional Instructions: Sched Vasectomy Patient Education Vasectomy I, Tesha Manzo , personally scribed for Dr. Rae on 03/23/2023 13:45:50. . Documentation recorded by the Tesha brownman, accurately reflects the services(s) I performed and [...] 03/23/2023 Lab (more content not included)... Normal [facility] Comment on above: Result Comment: Elec tronically Signed By: BUTCH OROZCO, Kory Nixon\.br\Date and Time Signed: 03/23/23 13:52 EDT\.br\Electronically Co-Signed [...] TAY Date: 2020-12-06 13:24 Normal [facility] Vital Signs Date Time Vital Sign Value Performing Clinician Facility 02-17-2025 09:02-0400 Body height 190.5 cm [employer] DO Work Phone: [facility] 02-17-2025 09:02-0400 Body mass index (BMI) [Ratio] 29 kg/m2 [employer] DO Work Phone: [facility] 02-17-2025 09:02-0400 Body weight 105.34 kg [employer] DO Work Phone: [facility] 02-17-2025 09:02-0400 Diastolic blood pressure 114 mm[Hg] [employer] DO Work Phone: [facility] 02-17-2025 09:02-0400 Diastolic blood pressure 90 mm[Hg] Henrique Ball DO Work Phone: [facility] 02-17-2025 09:02-0400 Heart rate 73 /min Henrique Ball DO Work Phone: [facility] 02-17-2025 09:02-0400 Respiratory rate 12 /min Henrique Ball DO Work Phone: [facility] 02-17-2025 09:02-0400 Systolic blood pressure 165 mm[Hg] Henrique Ball DO Work Phone: [facility] 02-17-2025 09:02-0400 Systolic blood pressure 150 mm[Hg] Henrique Ball DO Work Phone: [facility] 12-15-2024 08:00-0400 Body height 190.5 cm Henrique Ball DO Work Phone: [facility] 11-10-2024 08:29-0400 Body height 190.5 cm Henrique Ball DO Work Phone: [facility] 11-10-2024 08:29-0400 Body mass index (BMI) [Ratio] 25.9 kg/m2 Henrique Ball DO Work Phone: [facility] 11-10-2024 08:29-0400 Body weight 93.89 kg Henrique Ball DO Work Phone: [facility] 09-30-2024 10:15-0400 Body height 190.5 cm [facility] 09-30-2024 10:15-0400 Body mass index (BMI) [Ratio] 26.9 kg/m2 [facility] 09-30-2024 10:15-0400 Body weight 97.74 kg [facility] 09-30-2024 10:15-0400 Diastolic blood pressure 86 mm[Hg] [facility] 09-30-2024 10:15-0400 Heart rate 66 /min [facility] 09-30-2024 10:15-0400 Respiratory rate 12 /min [facility] 09-30-2024 10:15-0400 Systolic blood pressure 130 mm[Hg] [facility] 05-20-2023 14:00-0500 Body height 190.5 cm Henrique Ball Other [employer] Other 05-20-2023 14:00-0500 Body mass index (BMI) [Ratio] 25.37 kg/m2 Henrique Ball Other [employer] Other 05-20-2023 14:00-0500 Body weight 92.08 kg Henrique Ball Other [employer] Other 05-20-2023 14:00-0500 Diastolic blood pressure 92 mm[Hg] Henrique Ball Other [employer] Other 05-20-2023 14:00-0500 Respiratory rate 12 /min Henrique Ball Other [employer] Other 05-20-2023 14:00-0500 Systolic blood pressure 138 mm[Hg] Henrique Ball Other [employer] Other 05-20-2023 09:28-0500 Blood Pressure Location Korynataliia RAE [facility] 05-20-2023 09:28-0500 Diastolic blood pressure 90 mm[Hg] Kory RAE [facility] 05-20-2023 09:28-0500 Heart rate 64 /min Kory RAE [facility] 05-20-2023 09:28-0500 Systolic blood pressure 123 mm[Hg] Kory RAE [facility] 03-23-2023 12:17-0400 Blood Pressure Location Kory RAE [facility] 03-23-2023 12:17-0400 Diastolic blood pressure 86 mm[Hg] Kory RAE [facility] 03-23-2023 12:17-0400 Heart rate 72 /min Kory RAE [facility] 03-23-2023 12:17-0400 Respiratory rate 16 /min Kory RAE [facility] 03-23-2023 12:17-0400 Systolic blood pressure 135 mm[Hg] Kory RAE [facility] 12-04-2022 09:30-0400 Body height 190.5 cm Henrique Ball Other [facility] [employer] Other 12-04-2022 09:30-0400 Body mass index (BMI) [Ratio] 25 kg/m2 Henrique Ball Other [employer] Other 12-04-2022 09:30-0400 Body weight 90.72 kg Henrique Ball Other [employer] Other 12-04-2022 09:30-0400 Diastolic blood pressure 82 mm[Hg] Henrique Ball Other [facility] [employer] Other 12-04-2022 09:30-0400 Respiratory rate 12 /min Henrique Ball Other [employer] Other 12-04-2022 09:30-0400 Systolic blood pressure 139 mm[Hg] Henrique Ball Other [employer] Other 07-25-2022 11:30-0500 Body height 190.5 cm Henrique Ball Other [employer] Other 07-25-2022 11:30-0500 Body mass index (BMI) [Ratio] 26.85 kg/m2 Henrique Ball Other [employer] Other 07-25-2022 11:30-0500 Body weight 97.43 kg Henrique Ball Other [employer] Other 07-25-2022 11:30-0500 Diastolic blood pressure 90 mm[Hg] Henrique Ball Other [employer] Other 07-25-2022 11:30-0500 Respiratory rate 12 /min Henrique Ball Other [employer] Other 07-25-2022 11:30-0500 Systolic blood pressure 126 mm[Hg] Henrique Ball Other [employer] Other 07-25-2022 09:30-0500 Body height 190.5 cm Henrique Ball Other [employer] Other 07-25-2022 09:30-0500 Body mass index (BMI) [Ratio] 26.85 kg/m2 Henrique Ball Other [employer] Other 07-25-2022 09:30-0500 Body weight 97.43 kg Henrique Ball Other [employer] Other 07-25-2022 09:30-0500 Diastolic blood pressure 90 mm[Hg] Henrique Ball Other [employer] Other 07-25-2022 09:30-0500 Respiratory rate 12 /min Henrique Ball Other [employer] Other 07-25-2022 09:30-0500 Systolic blood pressure 126 mm[Hg] Henrique Ball Other [facility] [employer] Other Encounters Encounter Date Encounter Type Care Provider Facility Start: 02-19-2025 Evaluation and management of inpatient Aniceto Bahena Facility:[facility] Start: 02-17-2025 Non-patient / Non-visit Alejandra holguin MD -[facility] Work Phone: Start: 02-17-2025 End: 02-17-2025 ambulatory Henrique Ball DO Work Phone: [facility] Work Phone: Start: 02-17-2025 End: 02-17-2025 Patient encounter procedure Henrique Ball DO -[facility] Work Phone: Start: 12-15-2024 End: 12-15-2024 ambulatory Henrique Ball DO Work Phone: [facility] Work Phone: Start: 12-15-2024 End: 12-15-2024 Patient encounter procedure Henrique Ball DO Work Phone: [facility] Work Phone: Start: 11-10-2024 End: 11-10-2024 ambulatory Henrique Ball DO Work Phone: [facility] Work Phone: Start: 11-10-2024 End: 11-10-2024 Patient encounter procedure Henrique Ball DO Work Phone: [facility] Work Phone: Start: 11-08-2024 End: 11-08-2024 ambulatory Henrique Ball DO Work Phone: [facility] Work Phone: Start: 11-08-2024 End: 11-08-2024 Patient encounter procedure Henrique Ball DO Work Phone: [facility] Phys[facility] Work Phone: Start: 09-30-2024 End: 09-30-[address] [facility] Work Phone: Start: 09-30-2024 End: 09-30-2024 Encounter for general adult medical examination without abnormal findings [facility] Start: 09-30-2024 End: 09-30-2024 Patient encounter procedure [facility] Work Phone: Start: 09-27-2024 Patient encounter status [facility] Start: 03-04-2024 End: 03-04-[address] [facility] Work Phone: Start: 03-04-2024 End: 03-04-2024 Patient encounter procedure [facility] Phys[facility] Work Phone: Start: 02-01-2024 End: 02-01-[address] [facility] Work Phone: Start: 02-01-2024 End: 02-01-2024 Patient encounter procedure [facility] Work Phone: Start: 11-16-2023 Non-patient / Non-visit [facility] Work Phone: Start: 08-27-2023 End: 08-28-2023 ambulatory Kory RAE Facility:[facility] Start: 08-27-2023 End: 08-27-2023 Lab Drop off Kory RAE [facility] Start: 07-20-2023 End: 07-20-2023 ambulatory Henrique Mckeon Other [employer] Other Start: 07-20-2023 Telephone encounter Henrique Mckeon [facility] Start: 07-15-2023 End: 07-15-2023 ambulatory Henrique Mckeon Other [employer] Other Start: 07-15-2023 Telephone encounter Henrique Walters [facility] Start: 05-26-2023 End: 05-27-2023 ambulatory Kory RAE Facility:[facility] Start: 05-26-2023 End: 05-26-2023 Lab Drop off Kory RAE [facility] Start: 05-20-2023 Office outpatient vi sit 15 minutes Henrique Mckeon [facility] Start: 05-20-2023 End: 05-21-2023 ambulatory Kory RAE [facility] [employer] Other Start: 05-20-2023 End: 05-20-2023 Patient encounter procedure Kory RAE [facility] Start: 05-15-2023 ambulatory Kory RAE Facili ty:[facility] Start: 04-28-2023 End: 04-29-2023 ambulatory Kory RAE Facility:[facility] Start: 04-28-2023 End: 04-28-2023 Patient encounter procedure Kory RAE [facility] Start: 03-23-2023 ambulatory Kory RAE Facility :[facility] Start: 03-23-2023 End: 03-24-2023 ambulatory Kory RAE Facility:[facility] [place] Start: 03-23-2023 End: 03-23-2023 Patient encounter procedure [facility] RAE [facility] Start: 12-09-2022 End: 12-09-2022 ambulatory Henrique Mckeon Other [employer] Other Start: 12-09-2022 Telephone encounter Henrique CROCKETT [facility] Start: 12-05-2022 End: 12-05-2022 ambulatory Henrique Mckeon Other [employer] Other Start: 12-05-2022 Telephone encounter Henrique CROCKETT [facility] Start: 12-04-2022 End: 12-04-2022 ambulatory Henrique Mckeon Other [employer] Other Start: 12-04-2022 Office outpatient vi sit 15 minutes Henrique Mckeon [facility] Start: 07-25-2022 End: 07-25-2022 ambulatory Henrique Mckeon Other [employer] Other Start: 07-25-2022 Encounter for genera l adult medical examination without abnormal findings Henrique Mckeon [facility] Start: 07-25-2022 Periodic preventive med est patient 40-64yrs Henrique Mckeon [facility] Start: 07-21-2022 Annual wellness visit Henrique Mckeon Other [employer] Other Start: 12-06-2020 End: 12-07-[address] HENRIQUE MCKEON Facility: Start: 09-24-2020 End: 02-07-[address] MORGAN LISTED REQUEST Facility: Procedures Date Procedure Procedure Detail Performing Clinician Start: 11-08-2024 Plain X-ray of right shoulder Henrique Mckeon DO Work Phone: Start: 05-20-2023 H/O: vasectomy Kory Tiffani RAE Start: 04-28-2023 Vasectomy Kory WA TERS Procedure on back Kory WA TERS Procedure on femur Kory W ATEHECTOR Plan of Treatment Date Care Activity Detail Author Start: 02-17-2025 [facility] Start: 11-08-2024 Plain X-ray of right shoulder XR shoulder RT min 2V* [facility] Start: 11-08-2024 XR Shoulder - right Views [facility] Start: 11-08-2024 Patient referral [facility] Work Phone: Comprehensive metabo lic 2000 panel - Serum or Plasma [facility] Patient referral [facility] Work Phone: US Heart Transthoracic [facility] XR Cervical spine Vi ews W flexion and W extension [facility] XR Chest 2 Views [facility] XR Shoulder - right Views [facility] Immunizations Immunization Date Immunization Notes Care Provider Fa leatha 06-26-2021 COVID-19 Vaccine Pfi zer - Documentation Purposes Only Henrique Mckeon Other [facility] 10-16-2020 COVID-19 Vaccine Pfi zer - Documentation Purposes Only Henrique Mckeon Other [facility] 09-24-2020 COVID-19 Vaccine Pfi zer - Documentation Purposes Only Henrique Mckeon Other [facility] Payers Date Payer Category Payer Self-pay 1975 Unknown [id number] [id number] [id number] 1975 Unknown [id number] 2.16.8 [id number] 1977 Unknown [id number] 2.16.8 [id number] 1977 Unknown [id number] 2.16.8 [id number] 1977 Unknown [id number] 2.16.8 [id number] 1977 Unknown [id number] 2.16.8 [id number] 1977 Unknown [id number] 2.16.8 [id number] 1959 Private Health Insurance [id number] 1957 Self-pay [id number] Unknown [id number] 2.16.84 [id number] Unknown [id number] 2.16.8 [id number] Unknown [id number] 2.16.8 [id number] Unknown [id number] 2.16.8 [id number] Social History Date Type Detail Facility Unknown if ever smoked [employer] Other Sex Assigned At [facility] Tobacco smoking status No Smokin g Status Entered [facility] Start: 05-20-2023 End: 10-28-2024 Tobacco smoking status Never smoked tobacco (finding) [facility] Tobacco smoking status Never [facility] Start: 1975 Sex Assigned At Male F [facility] Start: 09-30-2024 End: 12-15-2024 Sex Male (finding) [facility] Functional Status Date Assessment Result Facility 05-20-2023 Functional Status N/A [facility] 03-23-2023 Functional Status N/A [facility] Clinical Notes 07-25-2022 to 12-15-2024 Note Date & Type Note Facility 12-15-2024 Evaluation note Diagnosis Onset Date Resolution Calcific tendinitis of right shoulder acute December 15, 2024 7:51am Shoulder pain, right acute December 15, 2024 7:51am Atrial fibrillation acute Augus t 2024 8:34am Dyspnea acute February 17, 025 8:34am Elevated BP without diagnosis of hypertension acute February 17 8:34am [facility] Work Phone: 1(888) 586-709806-12-2025 Evaluation note* Diagnosis Onset Date Resolution Status Admit Date Calcific tendinitis of right shoulder acute December 15, 2024 7:51am Shoulder pain, right deleted December 15, 2024 7:51am Atrial fibrillation acute Augus t 2024 8:34am Dyspnea acute February 17, 025 8:34am Elevated BP without diagnosi s of hypertension acute February 17 8:34am [facility] Work Phone: 1(444) 514-256903-28-2025 Evaluation note* Diagnosis Onset Date Resolution Status [...] pain, right acute November 08, 2024 3:55pm [facility] Work Phone: 1(211) 822-647003-28-2025 Evaluation note* Diagnosis Onset Date Resolution Status [...] pain, right acute November 10, 2024 8:17am [facility] Work Phone: 1(338) 699-404003-28-2025 Evaluation note* Diagnosis Onset Date Resolution Status [...] pain, right acute December 15, 2024 7:51am [facility] Work Phone: 1(665) 526-941402-22-2024 Evaluation + Plan note Diagnostic Tests Pending * Semen Analysis Post Vasectomy 08/27/23 * Sperm Morphology 08/27/23 [facility]01-10-2024 Evaluation note* Encounter Date Diagnosis Assessment Notes Treatment Notes Treatment Clinical Notes Jul, Situational anxiety (ICD-10 - F41.8) [employer] Other 11-21-2023 Evaluation + Plan note Diagnostic Tests Pending * Semen Analysis Post Vasectomy 05/26/23 * Sperm Morphology 05/26/23 [facility]11-15-2023 Evaluation + Plan note Diagnostic Tests Pending * Semen Analysis Post Vasectomy 05/20/23 * Semen Analysis Post Vasectomy 05/20/23 Future Scheduled Tests Laboratory* Semen Analysis Post Vasectomy 05/20/23 * Semen Analysis Post Vasectomy 05/20/23 [facility] 11-15-2023 Evaluation note* Encounter [...] landing. Read, listen to music, deep/slow breathing [employer] Other 11-15-2023 Hospital Discharge instructions Patient Education [...] provider. Document Revised: 11/26/2020 Document Reviewed: 11/26/2020 [employer] Patient Education 2022 [employer] Follow Up Care 05/06/2023 09:52:46 With:BUTCH OROZCO, Kory Nixon, URL Address: [facility] [address] , [place] [address]- When: Unknown [facility] 10-24-2023 Note [id number] 04-28-2023 Hospital Discharge instructions Patient Education [...] Address: [facility] [address] [place] [address]- [facility] (1) When:05/12/2023 09:47:09 [facility]09-18-2023 NoteUrology Vasectomy Vasectomy is a procedure in [...] including vitamins, herbs, eye drops, creams, and mcoq-zvl-jskktzk medicines. ? Any problems you or family [...] tells you to take them. ? Taking fdnm-dgu-nibovct medicines, vitamins, herbs, and supplements. ? You [...] being released during ej (more content not included)...[facility]09-18-2023 Hospital Discharge instructions Patient Education 03/23/2023 13:38:49 [...] including vitamins, herbs, eye drops, creams, and rvuc-uyf-gjnahis medicines. Any problems you or family members [...] provider tells you to take them. ?Taking bmyr-nso-jhgnnxk medicines, vitamins, herbs, and supplements. You may [...] provider. Document Revised: 11/08/2020 Document Reviewed: 11/08/2020 [employer] Patient Education 2022 [employer]. Follow Up Care 12/30/2022 13:05:02 With:BUTCH OROZCO, Kory Nixon, URL Address: [facility] [address], [place] [address]- [phone] When: Unknown Comments:Sched [facility]-06-20[facility] Evaluation note* Encounter Date Diagnosis Assessment Notes Treatment Notes Treatment Clinical Notes Dec, Recurrent oral herpes simplex (ICD-10 - B00.2) [employer] Other 06-02-2023 Evaluation note* Encounter Date Diagnosis Assessment Notes Treatment Notes Treatment Clinical Notes Dec, Colon cancer screening (ICD-10 - Z12.11) [employer] Other 06-01-2023 Evaluation note* Encounter Date Diagnosis [...] take extra dose for prodrome of tingling/burning [employer] Other 01-20-2023 Evaluation note* Encounter Date Diagnosis [...] any time [facility] [employer] Other Evaluation + Plan note Future Appointments Appointment Date:04/22/2023 09:00:00 AM Scheduled Provider: Location:[facility] Appointment Type:Urology CALL PAT FT Appointment Date:04/28/2023 09:00:00 AM Scheduled Provider: Location:[facility] Appointment Type:Urology FT Appointment Date:05/15/2023 11:00:00 AM Scheduled Provider:Kory RAE MD Location:[facility] Appointment Type:URO Office Visit [facility] evaluation + Plan note Future Appointments Appointment Date:05/15/2023 11:00:00 AM Scheduled Provider:Kory RAE MD Location:[facility] Appointment Type:URO Office Visit [facility]No [facility] [employer] Other Evaluation noteNo assessment information available [facility] Work Phone: Evaluation note* Diagnosis Onset Date Resolution Status Acute bronchitis due to other specified organisms acute Productive cough acute [facility] Work Phone: Evaluation note* Diagnosis Onset Date Resolution Status Admit Date Neck pain acute September 30 9:54am Shoulder pain, right acute Noe h 2024 9:54am Wellness examination acute Noe h 2024 9:54am Screening for colon cancer noneactiv e September 30, 2024 9:54am [facility] Work Phone: History general Narrative - Reported* Type Description Date Medical History CARLIN (generalized anxiety disorde r) Medical History Wellness examination Medical History Herpesviral vesicular dermatitis Medical History Lumbar spondylosis Medical History 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 Surgical History back surgery Surgical History femur shattered Surgical History LUMBAR DISECTOMY 03/2000 Surgical History ORIF RIGHT FEMUR 2004 Hospitalization History see above [employer] Other History general Narrative - Reported* Type [...] RIGHT FEMUR 2004 Hospitalization History see above [employer] Other Hospital course Narrative No data available for this section [facility] Hospital Discharge instructions No data available for this section [facility] No data available for this section [facility] reason for referral (narrative)No reason for [facility] Summary Purpose Family History No Family History Records Found Relationship Condition Age at Onset Recorded Date/T catherine father Arthritis Unknown Hypertension Unknown Advance Directives No Advanced Directives Records Found Advance Directive Response Recorded Date/ Time Advance [...] 56am Screening for colon cancer September 30 025 9:54am Cervical spondylosis with radiculopathy November [...] 56am Screening for colon cancer September 30 2 025 9:54am Cervical spondylosis with radiculopathy November [...] DATE CREATED AUTHOR AUTHOR'S ORGANIZ ATION 09/04/2023 Paris Cook [facility] DATE CREATED AUTHOR AUTHOR'S ORGANIZ ATION 02/20/2025 [facility] REASON FOR VISIT (unrecogniz ed [...] Active Member Role Status Dates Henrique Mckeon , [...] 2025 Team Status: Active Member Role Status Dates Henrique Mckeon , DO Primary Care Provider Active Start: February 17, 2025 Henrique Mckeon , DO Attending Provider Active Sta rt: February 17, 2025 Team Status: Active Member Role Status Aj Mckeon , DO [...] BE BASED ON THE PRIMARY CLINICAL RECORDS. [facility] [employer] provides no warranty or guarantee of the accuracy or completeness of information in this document.
== END 2025-02-19 14:40 | disposition short-term general hospital (02) | DRG 308 ==
LOC: ER 02-18 04:56 → MS 02-19 09:57
PROVIDERS: Admitting Provider Internal Medicine; Emergency Provider Internal Medicine; PCP Internal Medicine; Visit Provider Internal Medicine
DX: I48.91 Unspecified atrial fibrillation (principal); I50.31 Acute diastolic (congestive) heart failure; J98.01 Acute bronchospasm; Z79.82 Long term (current) use of aspirin; R07.89 Other chest pain
CPT/HCPCS: 36415; 71045; 71275; 80048; 80061; 83880; 84443; 84484; 85025; 85378; 86738; 87420; 87449; 87804; 87811; 93005; 94640; 94761; 99285; J0456; J0696; J1100; J1650; J1938; Q9967